=== PATIENT | female | born 1945 | race Caucasian/White ===

== ENCOUNTER → 2019-01-20 10:44 | Outpatient (CLI) | payer MEDICARE, OTHER, SELFPAY ==
[2019-01-20 12:06] LABS: Cholesterol 292 mg/dL (140-199); HDL Cholesterol 59 mg/dL (40-60); LDL Cholesterol Calculated 195 mg/dL (<100); Triglycerides 191 mg/dL (35-150)
== END ==
PROVIDERS: PCP Physician Assistant; Visit Provider Physician Assistant
DX: Z13.220 Encounter for screening for lipoid disorders (principal); Z13.6 Encounter for screening for cardiovascular disorders
CPT/HCPCS: 36415; 80061

== ENCOUNTER 2019-03-13 18:55 | Emergency (ER) | payer MEDICARE, OTHER, SELFPAY ==
[2019-03-13 18:58] VITALS: BP 145/85; PULSE 106; RESP 20; TEMP 36.9; O2SAT 98
--- NOTE | 2019-03-13 19:25 | ED_ITS ---
HPI - Abdominal Pain General Chief Complaint: Abdominal Pain Stated Complaint: Nausea Time Seen by Provider: 03/13/19 19:18 Source: patient Mode of arrival: ambulatory Limitations: no limitations History of Present Illness HPI narrative: Patient is a 73-year-old female. History of atrial fibrillation. Is on anticoagulation. She states that several days ago she had a couple episodes of diarrhea and she took some Imodium which seems to have resolved that. She is here today for multiple episodes of vomiting since last evening. Has epigastric abdominal pain. She thinks that is her gallbladder that is causing her problems. She states she has had gallbladder issues in the past but is never had surgery to remove it. Related Data Home Medications Medication Instructions Recorded Confirmed Prilosec 1 tab PO .QDAY PRN 01/05/19 01/05/19 rivaroxaban 15 mg (42)-20 mg (9) each PO PER PKG DIR each 01/05/19 01/05/19 tablets in a starter pack Previous Rx's Medication Instructions Recorded apixaban 5 mg tablet 5 mg PO BID #180 tab 01/05/19 diltiazem ER 180 mg 180 mg PO DAILY #90 tab 01/05/19 tablet,extended release 24 hr metoclopramide HCl [Reglan] 10 mg PO Q6H PRN #10 tab 03/13/19 Allergies Allergy/AdvReac Type Severity Reaction Status Date / Time doxycycline AdvReac Intermediate Blisters Verified 01/05/19 15:51 in mouth and itchy skin SULFA Allergy Mild rash Uncoded 01/05/19 15:51 strawberry patches Review of Systems Constitutional Denies fever(s) and Denies headache(s) ENT Ears, Nose, Mouth, and Throat: Denies vertigo and Denies headache(s) Cardiovascular Denies chest pain and Denies dyspnea Respiratory Denies dyspnea Gastrointestinal Gastrointestinal: Reports abdominal pain, Reports nausea and Reports vomiting Genitourinary Denies dysuria and Denies vaginal discharge Musculoskeletal Denies myalgias and Denies arthralgias Integumentary/Breasts Denies rash Neurologic Denies vertigo and Denies headache(s) Hematologic/Lymphatic Comments: On anticoagulation [facility] Medical History Atrial fibrillation (Acute) Social History Smoking Status: Never smoker second hand exposure: No alcohol intake: current (on rare occasions like for toast.) substance use type: does not use Social History Smoking Status: Never smoker second hand exposure: No alcohol intake: current (on rare occasions like for toast.) substance use type: does not use Exam Initial Vital Signs Initial Vital Signs: Vital Signs Temperature 98.5 F 03/13/19 18:58 Pulse Rate 106 H 03/13/19 18:58 Respiratory Rate 20 03/13/19 18:58 Blood Pressure 145/85 H 03/13/19 18:58 Pulse Oximetry 98 03/13/19 18:58 Const General: cooperative, healthy appearing, comfortable, well developed, well leidy omed and No acute distress Orientation: alert, awake and oriented x3 HENMT Head: normal to inspection and normocephalic Resp Effort & Inspection: normal respiratory effort Auscultation: clear to auscultation bilaterally Cardio Rate: regular rate Rhythm: abnormal rhythm irregularly irregular Pulses: radial pulses present GI Inspection: non-distended Palpation: soft, No guarding and tender (Epigastric and right upper quadrant) Back/Spine/Pelvis Back: No CVA tenderness Skin Lesions: no lesions Rashes: no rashes Neuro General: alert and awake Cognition: normal cognition Speech: speech normal Gait: normal gait Extrem General: normal to inspection and capillary refill normal Psych Appearance: grossly normal and well kempt Scores GCS Danielle coma scale eye opening: Spontaneous [place] coma scale verbal response: Orientated Danielle coma scale motor response: Obey commands Danielle coma scale total score: 15 Course Orders Ordered: ED Orders 03/13/19 19:25 US abdomen limited Stat 03/13/19 19:35 Complete Blood Count AUTO DIFF Stat Comprehensive Metabolic Panel Stat Lipase Stat 03/13/19 19:36 EKG-12 Lead Stat 03/13/19 19:45 Lactate (Lactic Acid) Stat Discontinued Medications Sodium Chloride (Normal Saline 0.9%) 1,000 mls @ 1,000 mls/hr IV BOLUS ONE Stop: 03/13/19 20:38 Last Infusion: 03/13/19 21:05 Dose: 0 mls/hr Admin: 03/13/19 19:45 Dose: 1,000 mls/hr Metoclopramide HCl (Reglan) 10 mg IV NOW ONE Stop: 03/13/19 20:06 Last Admin: 03/13/19 20:10 Dose: 10 mg Ondansetron HCl (Zofran) 4 mg IV NOW ONE Stop: 03/13/19 19:40 Last Admin: 03/13/19 19:45 Dose: 4 mg Ondansetron HCl (Zofran Odt Prepack) 1 bottle MISC SEEINSTR ONE Stop: 03/13/19 22:02 Last Admin: 03/13/19 22:10 Dose: 1 bottle Vital Signs - 8 hr 03/13/19 18:58 03/13/19 21:00 Temperature 98.5 F Pulse Rate 106 H 95 H Respiratory Rate 20 17 Blood Pressure 145/85 H Blood Pressure [Right Arm] 132/57 L Pulse Oximetry 98 99 MDM - Abdominal Pain Lab Data Attestation: I reviewed the patient's lab results. Result diagrams: 03/13/19 19:35 03/13/19 19:35 Lab Results 03/13/19 03/13/19 03/13/19 Range/Units 19:35 19:35 19:45 WBC 10.2 (4.5-11.0) X10^3/uL RBC 4.93 (4.0-5.2) X10^6/uL Hgb 14.2 (12.0-16.0) g/dL Hct 43.3 (36-46) % MCV 87.7 (80-100) fL MCH 28.8 (26-34) PG MCHC 32.8 (30-36) % RDW 15.4 H (11.6-14.8) % Plt Count 252 (150-400) X10^3/uL Neut % (Auto) 88.2 H (50-75) % Lymph % (Auto) 7.4 L (25-40) % [place] % (Auto) 3.9 (3-14) % Eos % (Auto) 0.0 L (2-4) % Baso % (Auto) 0.5 (0-2) % Neut # (Auto) 9000 H (8450-5781) /uL Lymph # (Auto) 800 L (2360-7854) /uL [place] # (Auto) 400 (0-900) /uL Eos # (Auto) 0 (0-450) /uL Baso # (Auto) 0 (0-100) /uL Sodium 139 (137-145) mmol/L Potassium 3.6 (3.4-5.1) mmol/L Chloride 104 (98-107) mmol/L Carbon Dioxide 22 (22-32) mmol/L BUN 11 (7-17) mg/dL Creatinine 0.60 (0.52-1.04) mg/dL Estimated GFR > 60.0 (>60) mL/min BUN/Creatinine Ratio 18.3 (6-22) Glucose 131 H (80-110) mg/dL Lactate 1.0 (0.7-2.1) mmol/L Calcium 9.9 (8.4-10.2) mg/dL Total Bilirubin 0.8 (0.2-1.3) mg/dL AST 28 (14-36) IU/L ALT 20 (9-52) IU/L Alkaline Phosphatase 125 (38-126) U/L Total Protein 8.2 (6.3-8.2) g/dL Albumin 4.6 (3.5-5.0) g/dL Globulin 3.6 (1.7-4.1) g/dL Albumin/Globulin Ratio 1.3 (1.0-2.8) Lipase 64 (23-300) U/L Point of care testing: Urine Dip Bedside Urine Glucose Negative Bedside Urine Bilirubin - Negative Bedside Urine Ketone ++ 40 Urine Specific [place] 1.030 Bedside Urine Occult Blood - Negative Bedside Urine pH 6.0 Bedside Urine Protein +/- 15 Bedside Urine Urobilinogen - Negative Bedside Urine Nitrite - Negative Bedside Urine Leukocytes - Negative Esterase Imaging Data US - abdomen: Radiologist's impression: [place] [address] Ultrasound Report Signed Patient: Irene Butler PMR#: [id number] : 7Acct:[id number] Age/Sex: 73 / FDate of Service: 03/13/19 Loc: ED Accession Number: [id number] Procedure: US abdomen limited Ordering Provider: David Nelson D.O. PROCEDURE: US ABDOMEN LIMITED INDICATIONS: RIGHT UPPER QUADRANT PAIN TECHNIQUE: Real-time scanning was performed of the abdominal and retroperitoneal organs, with image documentation. COMPARISON: None. FINDINGS: The liver is enlarged measuring 17.0 cm. There is no oral appearance of increased echogenicity. Within the right lobe there are several echogenic foci measuring 32 x 32 x 29 mm, 27 x 20 x 32 mm and 16 x 19 x 18 mm. Similar focus is noted in the anterior right lobe measuring 24 x 26 x 27 mm. The gallbladder is unremarkable with wall thickness measuring 1.4 mm. No stones. Common bile duct is within normal limits measuring 5.3 mm. IMPRESSION: 1. Multiple echogenic foci within the liver suspicious for hemangiomas. No priors are available for comparison. As clinically indicated, further evaluation with hepat ic CT may be obtained on a nonemergent basis. 2. Gallbladder is unremarkable. Dictated by: Carrie Jj M.D. on 03/13/2019 at 21:39 Approved by: Carrie Jj M.D. on 03/13/2019 at 21:41 ECG Data Attestation: I personally reviewed and interpreted this ECG as follows: Prior ECG tracings: not available for review Interpretation: Atrial fibrillation Ventricular rate of 96 Normal axis Normal QRS Normal QTC No ST T wave changes MDM Narrative Medical decision making narrative: Has a benign abdominal exam. Ultrasound is negative for acute gallbladder pathology. I did discuss the incidental findings of hemangiomas that were seen on the ultrasound. Informed her that she needed to follow up with her primary doctor regarding these for a dedicated CT scan. I do not feel that this needs that happened this evening. She was able to tolerate oral intake. Will send home with nausea medications. She is given return precautions and follow-up instructions. She expressed understanding and agreement with plan. Discharge Plan Departure Patient Disposition: Home Clinical Impression: Abdominal pain Qualifiers: Abdominal location: epigastric Qualified Code(s): R10.13 - Epigastric pain Nausea & vomiting Qualifiers: Vomiting type: unspecified Vomiting Intractability: non-intractable Qualified Code(s): R11.2 - Nausea with vomiting, unspecified Discharge Date/Time: 03/13/19 22:10 Interventions: ED Discharge Assessment Last Done: 03/13/19 22:10 Instructions: Nausea and Vomiting-Adult Activity Restrictions/Additional Instructions: You need to talk with your primary provider about a dedicated CT scan of your liver to further evaluate the incidental findings of possible hemangiomas on the ultrasound. Take the medication as directed. Return to the emergency department for any new or worsening symptoms Prescriptions: New metoclopramide HCl [Reglan] 10 mg tablet 10 mg PO Q6H PRN (Reason: nausea and vomiting) Qty: 10 RF: 0 No Action Prilosec 1 tab PO .QDAY PRNRF: 0 diltiazem HCl 180 mg tablet extended release 24 hr 180 mg PO DAILY Qty: 90 RF: 0 Eliquis 5 mg tablet 5 mg PO BID Qty: 180 RF: 1 Xarelto 15 mg (42)- 20 mg (9) tablets,dose pack PO PER PKG DIR RF: 0 Referrals: Melinda Escamilla PA-C [Primary Care Provider] -
[2019-03-13 19:43] LABS: Add Manual Diff / Slide Review NO; Basophils Absolute Auto 0 /uL (0-100); Basophils Percent Auto 0.5 % (0-2); Eosinophils Absolute Auto 0 /uL (0-450); Hematocrit 43.3 % (36-46); Hemoglobin 14.2 g/dL (12.0-16.0); Lymphocytes Absolute Auto 800 /uL (1100-4500); Lymphocytes Percent Auto 7.4 % (25-40); Mean Corpuscular HGB Conc 32.8 % (30-36); Mean Corpuscular Hemoglobin 28.8 PG (26-34); Mean Corpuscular Volume 87.7 fL (80-100); Monocytes Absolute Auto 400 /uL (0-900); Monocytes Percent Auto 3.9 % (3-14); Neutrophils Absolute Auto 9000 /uL (1500-7000); Neutrophils Percent Auto 88.2 % (50-75); Platelet Count 252 X10^3/uL (150-400); Red Blood Cell Count 4.93 X10^6/uL (4.0-5.2); Red Cell Distribution Width 15.4 % (11.6-14.8); White Blood Cell Count 10.2 X10^3/uL (4.5-11.0)
[2019-03-13] MEDS: ONDANSETRON 4 MG/2 ML INJ IV (19:45)
[2019-03-13] MEDS: SODIUM CHLORIDE 0.9% 1,000 ML 1000 ML IV (19:45)
[2019-03-13 19:58] LABS: Alanine Aminotransferase 20 IU/L (9-52); Albumin 4.6 g/dL (3.5-5.0); Albumin Globulin Ratio 1.3 (1.0-2.8); Alkaline Phosphatase 125 U/L (38-126); Aspartate Aminotransferase 28 IU/L (14-36); BUN Creatinine Ratio 18.3 (6-22); Bilirubin Total 0.8 mg/dL (0.2-1.3); Blood Urea Nitrogen 11 mg/dL (7-17); Calcium 9.9 mg/dL (8.4-10.2); Carbon Dioxide 22 mmol/L (22-32); Chloride 104 mmol/L (98-107); Estimated Glomerular Filt Rate > 60.0 mL/min (>60); Globulin 3.6 g/dL (1.7-4.1); Glucose 131 mg/dL (80-110); HEMOLYSIS < 15 (0-50); Lipase 64 U/L (23-300); Potassium 3.6 mmol/L (3.4-5.1); Sodium 139 mmol/L (137-145); Total Protein 8.2 g/dL (6.3-8.2)
[2019-03-13] MEDS: METOCLOPRAMIDE 10 MG/2 ML INJ IV (20:10)
[2019-03-13 21:00] VITALS: BP 132/57; PULSE 95; RESP 17; O2SAT 99
[2019-03-13] MEDS: ONDANSETRON 4 MG ODT PREPACK 1 BOTTLE MISC (22:10)
== END 2019-03-13 22:10 | disposition home or self-care (01) ==
PROVIDERS: Emergency Provider Emergency Medicine; Family Provider Internal Medicine Cardiovascular Disease; PCP Physician Assistant
DX: R10.13 Epigastric pain (principal); R11.2 Nausea with vomiting, unspecified; I48.91 Unspecified atrial fibrillation; Z79.01 Long term (current) use of anticoagulants
CPT/HCPCS: 36591; 76705; 80053; 81003; 83605; 83690; 85025; 93005; 96361; 96374; 96375; 99283; 99285; J2405; J2765

== ENCOUNTER → 2019-03-22 07:55 | Outpatient (CLI) | payer MEDICARE, OTHER, SELFPAY ==
--- NOTE | 2019-03-22 | DI.ECHO.S_ITS ---
[facility] +---------+ : : [address] [place] : : : : [id number] : : : : Phone: [phone]+ Echocardiogram Report + + :Name: MANDY CONLEY Study Date: 03/22/2019 Height: 68 in : :[facility] Exam Location: IS Weight: 201 lb : : Gender: Female BSA: 2.0 m2 : :: 1945 Age: 73 yrs BP: 100/80 mmHg: :Reason For Study: Atrial fibrillation : :Ordering Physician: Duncan Ramirez : :Gerard Performed By: Manju Page : + + Interpretation Summary 1) Normal left ventricular size, thickness, wall motion, and systolic function (EF 60-65%). 2) Mildly enlarged right ventricle with normal fnction. 3) The left atrium is severely dilated. The right atrium is moderately dilated. 4) No significant valvular abnormalities 5) No prior Echo available for comparison. Procedure: A two-dimensional transthoracic echocardiogram with color flow and Doppler was performed. The study quality was technically adequate. There is no prior echocardiogram noted for this patient. The patient was in atrial fibrillation with heart rates between 72-96 bpm during the exam. Left Ventricle: The left ventricle is normal in size. Left ventricular wall thickness is normal. The ejection fraction is estimated to be 60-65%. There are no focal wall motion abnormalities. Diastolic function could not be accurately assessed due to atrial fibrillation. Right Ventricle: The right ventricle is mildly dilated. The right ventricular systolic function is normal. Atria: The left atrium is severely dilated. The right atrium is moderately dilated. There is no Doppler evidence for an interatrial shunt. Mitral Valve: The mitral valve is normal in structure and function. There is mild mitral annular calcification. There is trace mitral regurgitation. Aortic Valve: The aortic valve is trileaflet. The aortic valve opens well. There is no aortic valve stenosis. There is trace aortic regurgitation. Tricuspid Valve: The tricuspid valve is normal in structure and function. There is mild tricuspid regurgitation. Pulmonic Valve: The pulmonic valve is not well visualized. There is a trace or physiologic amount of pulmonic regurgitation. Great Vessels: The aortic root is normal size. The ascending aorta is at the upper limits of normal in size. The aortic arch is normal in size. The pulmonary is not well visualized. The IVC is of normal diameter and collapses greater than 50% with a sniff. This suggests a low right atrial pressure of 3 mm Hg. Pericardium/ Pleura There is no pericardial effusion. There is no pleural effusion. MMode/2D Measurements & Calculations LVIDd: 4.4 cm Ao root diam: 3.6 cm LVIDs: 2.5 cm asc Aorta Diam: 3.6 cm FS: 42.2 % Ao Arch Diam (Prox Trans): 2.9 cm EPSS: 0.60 cm IVSd: 0.82 cm LVPWd: 1.0 cm LV pace. diameter/BSA (cm/m^2): 2.1 LV sys. diameter/BSA (cm/m^2): 1.2 LA A2 area: 35.3 cm2 RA long axis: 5.9 cm LA A4 area: 30.7 cm2 RA area: 22.7 cm2 LA length (vol): 6.6 cm RA vol: 73.9 ml LA vol: 139.4 ml RA : 36.1 ml/m2 LA vol index: 68.0 ml/m2 IVC diam: 1.4 cm RVD1 (basal): 4.0 cm RVD2 (mid): 4.1 cm TAPSE: 1.1 cm Doppler Measurements & Calculations Ao V2 max: 103.2 cm/sec LVOT Max Juan M: 70.4 cm/sec Ao V2 mean: 78.6 cm/sec LV V1 max P.0 mmHg Ao max P.3 mmHg LV V1 VTI: 12.6 cm Ao mean P.6 mmHg sev ratio: 0.66 Ao V2 VTI: 19.1 cm MV E max juan m: 91.2 cm/sec TR max juan m: 205.9 cm/sec MV P1/2t: 50.0 msec TR max P.0 mmHg PA V2 max: 69.5 cm/sec PA V2 mean: 46.9 cm/sec PA mean P.97 mmHg PA Accel Time: 0.08 sec MV P1/2t max juan m: 89.6 cm/sec MVA(P1/2t): 4.4 cm2 [place] Physician:04:56 PM
== END ==
PROVIDERS: Family Provider Physician Assistant; PCP Physician Assistant; Visit Provider Internal Medicine Cardiovascular Disease
DX: I07.1 Rheumatic tricuspid insufficiency (principal); I48.1 Persistent atrial fibrillation
CPT/HCPCS: 93306

== ENCOUNTER → 2019-05-09 10:08 | Outpatient (CLI) | payer MEDICARE, OTHER, SELFPAY ==
[2019-05-09 10:53] LABS: Add Manual Diff / Slide Review NO; Basophils Absolute Auto 100 /uL (0-100); Basophils Percent Auto 1.1 % (0-2); Eosinophils Absolute Auto 100 /uL (0-450); Eosinophils Percent Auto 2.7 % (2-4); Hematocrit 42.4 % (36-46); Lymphocytes Absolute Auto 1700 /uL (1100-4500); Lymphocytes Percent Auto 31.8 % (25-40); Mean Corpuscular Hemoglobin 29.5 PG (26-34); Mean Corpuscular Volume 89.2 fL (80-100); Monocytes Absolute Auto 500 /uL (0-900); Monocytes Percent Auto 9.4 % (3-14); Neutrophils Absolute Auto 2900 /uL (1500-7000); Platelet Count 212 X10^3/uL (150-400); Red Blood Cell Count 4.75 X10^6/uL (4.0-5.2); Red Cell Distribution Width 14.4 % (11.6-14.8); White Blood Cell Count 5.3 X10^3/uL (4.5-11.0)
[2019-05-09 11:04] LABS: BUN Creatinine Ratio 21.3 (6-22); Blood Urea Nitrogen 17 mg/dL (7-17); Calcium 10.5 mg/dL (8.4-10.2); Carbon Dioxide 27 mmol/L (22-32); Chloride 105 mmol/L (98-107); Cholesterol 214 mg/dL (140-199); Estimated Glomerular Filt Rate > 60.0 mL/min (>60); Glucose 93 mg/dL (80-110); HDL Cholesterol 57 mg/dL (40-60); HEMOLYSIS < 15 (0-50); LDL Cholesterol Calculated 128 mg/dL (<100); Sodium 141 mmol/L (137-145); Triglycerides 143 mg/dL (35-150)
== END ==
PROVIDERS: PCP Physician Assistant; Visit Provider Internal Medicine Cardiovascular Disease
DX: I48.1 Persistent atrial fibrillation (principal); Z79.01 Long term (current) use of anticoagulants; E78.5 Hyperlipidemia, unspecified
CPT/HCPCS: 36415; 80048; 80061; 85025

== ENCOUNTER 2019-10-25 18:44 | Emergency (ER) | payer MEDICARE, OTHER, SELFPAY ==
[2019-10-25 18:57] VITALS: BP 166/95; PULSE 96; RESP 16; TEMP 36.8; O2SAT 96; BMI 30.1
[2019-10-25 19:48] LABS: Add Manual Diff / Slide Review NO; Basophils Absolute Auto 0 /uL (0-100); Basophils Percent Auto 0.3 % (0-2); Eosinophils Absolute Auto 0 /uL (0-450); Eosinophils Percent Auto 0.1 % (2-4); Hematocrit 43.5 % (36-46); Hemoglobin 14.6 g/dL (12.0-16.0); Lymphocytes Absolute Auto 1000 /uL (1100-4500); Lymphocytes Percent Auto 13.9 % (25-40); Mean Corpuscular HGB Conc 33.6 % (30-36); Mean Corpuscular Volume 86.4 fL (80-100); Monocytes Absolute Auto 600 /uL (0-900); Monocytes Percent Auto 8.3 % (3-14); Neutrophils Absolute Auto 5800 /uL (1500-7000); Neutrophils Percent Auto 77.4 % (50-75); Platelet Count 229 X10^3/uL (150-400); Red Blood Cell Count 5.03 X10^6/uL (4.0-5.2); Red Cell Distribution Width 14.7 % (11.6-14.8); White Blood Cell Count 7.5 X10^3/uL (4.5-11.0)
[2019-10-25 19:56] LABS: INR 1.1 (0.9-1.3); Prothrombin Time 12.5 SECONDS (10.1-12.7)
[2019-10-25 19:59] LABS: PTT Partial Thromboplastin Tim 32 SECONDS (26.4-36.2)
[2019-10-25 20:00] LABS: Alanine Aminotransferase 21 IU/L (<35); Albumin 4.5 g/dL (3.5-5.0); Albumin Globulin Ratio 1.3 (1.0-2.8); Alkaline Phosphatase 119 U/L (38-126); Aspartate Aminotransferase 31 IU/L (14-36); BUN Creatinine Ratio 15.7 (6-22); Bilirubin Total 0.6 mg/dL (0.2-1.3); Blood Urea Nitrogen 11 mg/dL (7-17); Calcium 9.9 mg/dL (8.4-10.2); Carbon Dioxide 25 mmol/L (22-32); Chloride 106 mmol/L (98-107); Estimated Glomerular Filt Rate > 60.0 mL/min (>60); Globulin 3.4 g/dL (1.7-4.1); Glucose 122 mg/dL (80-110); HEMOLYSIS 31 (0-50); Lipase 69 U/L (23-300); Sodium 139 mmol/L (137-145); Total Protein 7.9 g/dL (6.3-8.2)
[2019-10-25 20:30] VITALS: BP 155/70; PULSE 108; RESP 22; O2SAT 96
[2019-10-25 20:30] LABS: RBC Urine None Seen (0-5/HPF)
[2019-10-25 20:41] LABS: Amorphous Sediment Urine 1+; Bacteria Urine Few (2-10); Culture Indicated Urine Specimen Cultured; Mucus Urine 2+ (Negative); Squamous Epithelial Cell Urine 1-5 /HPF (0-5/HPF); WBC Urine 5-10/HPF (0-5/HPF)
--- NOTE | 2019-10-25 20:50 | ED.ABDPAIN ---
HPI - Abdominal Pain General Chief Complaint: Abdominal Pain Stated Complaint: vomiting, abdominal pain Time Seen by Provider: 10/25/19 19:07 Source: patient Mode of arrival: Ambulatory Limitations: no limitations History of Present Illness HPI narrative: 74-year-old female nonsmoker with history of AFib on apixaban presents with her daughter and a chief complaint of epigastric and right upper quadrant abdominal pain for the past 24-48 hours. Her pain is worse with motion and improves with rest. She denies any vomiting but has had some nausea. She denies any change in bowel movements. She denies runny nose, sore throat or cough. She denies any unexplained weight loss. MD complaint: abdominal pain Onset (ago): day(s) Pain Consistency: constant Location: RUQ and epigastric Severity: moderate Quality: cramping and aching Relieving factors: rest Exacerbating factors: movement Associated symptoms: nausea Related Data Home Medications Medication Instructions Recorded Confirmed Prilosec 1 tab PO .QDAY PRN 01/05/19 10/09/19 rosuvastatin 5 mg tablet See Rx Instructions PO DAILY 04/12/19 10/09/19 Previous Rx's Medication Instructions Recorded apixaban 5 mg tablet 5 mg PO BID #180 tab 01/05/19 diltiazem HCl 180 mg 180 mg PO DAILY #90 tab 01/05/19 tablet,extended release 24 hr metoclopramide HCl [Reglan] 10 mg PO Q6H PRN #10 tab 03/13/19 lorazepam 1 mg tablet 1 mg PO DAILY PRN #15 tab 10/09/19 azelastine 137 mcg (0.1 %) nasal 2 spray NASAL BEDTIME #30 ml 10/13/19 spray aerosol hydrocodone-acetaminophen 1 tab PO Q4-6H PRN #10 tab 10/25/19 ondansetron 4 mg PO TID-QID PRN #10 tab 10/25/19 ondansetron 4 mg PO TID-QID PRN #10 tab 10/25/19 Allergies Allergy/AdvReac Type Severity Reaction Status Date / Time doxycycline AdvReac Intermediate Blisters Verified 10/09/19 14:02 in mouth and itchy skin rosuvastatin AdvReac Intermediate N/V; Verified 10/09/19 14:02 diffuse muscle and joint pain SULFA Allergy Mild rash Uncoded 10/09/19 14:02 strawberry patches Review of Systems Constitutional Constitutional: Denies chills, Denies fatigue, Denies fever(s), Denies frequent falls, Denies lethargy and Denies weakness Eyes Eyes: Denies change in vision, Denies eye discharge, Denies irritation and Denies loss of vision ENT Ears, Nose, Mouth, and Throat: Denies change in voice, Denies dizziness, Denies neck pain, Denies sore throat and Denies throat swelling Cardiovascular Cardiovascular: Denies chest pain, Denies irregular heart rhythm, Denies lightheadedness, Denies palpitations, Denies dyspnea, Denies dyspnea on exertion and Denies orthopnea Respiratory Respiratory: Denies cough, Denies dyspnea, Denies dyspnea on exertion and Denies wheezing Gastrointestinal Gastrointestinal: Reports abdominal pain, Denies change in bowel habits, Denies diarrhea, Reports nausea and Denies vomiting Genitourinary Genitourinary: Denies hematuria, Denies flank pain, Denies urinary incontinence and Denies urinary urgency Musculoskeletal Musculoskeletal: Denies back pain, Denies muscle weakness, Denies neck pain, Denies numbness and Denies tingling Integumentary/Breasts Skin/Breast: Denies pruritus, Denies erythema, Denies rash and Denies wounds Neurologic Neurologic: Denies behavioral changes, Denies confusion, Denies dizziness, Denies frequent falls, Denies loss of vision, Denies numbness, Denies tingling and Denies weakness Psychiatric Psychiatric: Denies anxiety, Denies behavioral changes, Denies confusion, Denies depression, Denies homicidal ideation and Denies suicidal ideation Endocrine Endocrine: Denies fatigue, Denies flushing and Denies palpitations Hematologic/Lymphatic Hematologic/Lymphatic: Denies easy bruising Allergic/Immunologic Allergic/Immunologic: Denies urticaria, Denies throat swelling and Denies wheezing Patient History Medical History Atrial fibrillation (Chronic) Chicken pox (Resolved) Hepatitis A (Resolved ~1973) Measles (Resolved) Mumps (Resolved) Rubella (Resolved) Surgical History Anesthesia (Resolved) History of removal of cyst (Resolved ~1969) History of tubal ligation (Resolved ~1972) Family History Father Congestive heart failure Social History Smoking Status: Never smoker second hand exposure: No alcohol intake: current (on rare occasions like for toast.) substance use type: does not use Smoking Status: Never smoker alcohol intake frequency: 0-2 drinks per day Substance Use Type: does not use Exam Narrative Exam Narrative: GENERAL: [74] year old patient appears stated age. Well-nourished, well-developed patient, in mild distress, obviously uncomfortable HEAD: Atraumatic. Normocephalic. EYES: Pupils equal round and reactive. Extraocular motions intact. No scleral icterus. No injection or drainage. ENT: Nose without bleeding, purulent drainage. Throat without erythema, tonsillar hypertrophy or exudate. Airway patent. NECK: Trachea midline. Non tender CARDIOVASCULAR: Regular rate and rhythm without murmurs, gallops, or rubs. RESPIRATORY: Clear to auscultation. Breath sounds equal bilaterally. No wheezes, rales, or rhonchi. GASTROINTESTINAL: Abdomen soft, tender in the right upper quadrant, nondistended. No pain in left lower quadrant EXTREMITIES: No edema or joint tenderness. BACK: Nontender without deformity or crepitance. No flank tenderness. NEURO: AOx3. SKIN: No rash or erythema of visible areas Initial Vital Signs Initial Vital Signs: Vital Signs Temperature 98.2 F 10/25/19 18:57 Pulse Rate 96 H 10/25/19 18:57 Respiratory Rate 16 10/25/19 18:57 Blood Pressure 166/95 H 10/25/19 18:57 Pulse Oximetry 96 10/25/19 18:57 Course Orders Ordered: ED Orders 10/25/19 18:57 EKG-12 Lead Stat 10/25/19 19:30 Complete Blood Count AUTO DIFF Stat Comprehensive Metabolic Panel Stat Lipase Stat Partial Thromboplastin Time Stat Prothrombin Time INR Stat 10/25/19 20:15 Urine Culture Stat Urine Microscopic Stat 10/25/19 20:55 CT abdomen pelvis w con Stat Discontinued Medications Hydrocodone Bitart/Acetaminophen (Vicodin 5/325 Prepack) 1 bottle MISC SEEINSTR ONE Stop: 10/25/19 22:18 Last Admin: 10/25/19 22:32 Dose: 1 bottle Documented by: CLEMENTINE Hydromorphone HCl (Dilaudid) 0.5 mg IV NOW ONE Stop: 10/25/19 20:55 Last Admin: 10/25/19 21:03 Dose: 0.5 mg Documented by: STANTON Sodium Chloride (Normal Saline 0.9%) 1,000 mls @ 1,000 mls/hr IV BOLUS ONE Stop: 10/25/19 21:53 Last Infusion: 10/25/19 22:31 Dose: 0 mls/hr Documented by: Admin: 10/25/19 21:03 Dose: 1,000 mls/hr Documented by: STANTON Ondansetron HCl (Zofran) 4 mg IV NOW ONE Stop: 10/25/19 20:55 Last Admin: 10/25/19 21:03 Dose: 4 mg Documented by: STANTON Ondansetron HCl (Zofran Odt Prepack) 1 bottle MISC SEEINSTR ONE Stop: 10/25/19 22:18 Last Admin: 10/25/19 22:32 Dose: 1 bottle Documented by: CLEMENTINE Vital Signs Vital signs: Vital Signs - 8 hr 10/25/19 20:30 10/25/19 21:30 10/25/19 22:00 Pulse Rate 108 H 94 H 98 H Respiratory Rate 22 24 20 Blood Pressure [Left Arm] 155/70 H 135/74 133/63 Pulse Oximetry 96 94 96 MDM - Abdominal Pain Lab Data Result diagrams: 10/25/19 19:30 10/25/19 19:30 Labs: Lab Results 10/25/19 10/25/19 10/25/19 Range/Units 19:30 19:30 19:30 WBC 7.5 (4.5-11.0) X10^3/uL RBC 5.03 (4.0-5.2) X10^6/uL Hgb 14.6 (12.0-16.0) g/dL Hct 43.5 (36-46) % MCV 86.4 (80-100) fL MCH 29.0 (26-34) PG MCHC 33.6 (30-36) % RDW 14.7 (11.6-14.8) % Plt Count 229 (150-400) X10^3/uL Neut % (Auto) 77.4 H (50-75) % Lymph % (Auto) 13.9 L (25-40) % [place] % (Auto) 8.3 (3-14) % Eos % (Auto) 0.1 L (2-4) % Baso % (Auto) 0.3 (0-2) % Neut # (Auto) 5800 (3476-3671) /uL Lymph # (Auto) 1000 L (2404-4418) /uL [place] # (Auto) 600 (0-900) /uL Eos # (Auto) 0 (0-450) /uL Baso # (Auto) 0 (0-100) /uL PT 12.5 (10.1-12.7) SECONDS INR 1.1 (0.9-1.3) APTT 32 (26.4-36.2) SECONDS Sodium 139 (137-145) mmol/L Potassium 4.0 (3.4-5.1) mmol/L Chloride 106 (98-107) mmol/L Carbon Dioxide 25 (22-32) mmol/L BUN 11 (7-17) mg/dL Creatinine 0.70 (0.52-1.04) mg/dL Estimated GFR > 60.0 (>60) mL/min BUN/Creatinine Ratio 15.7 (6-22) Glucose 122 H (80-110) mg/dL Calcium 9.9 (8.4-10.2) mg/dL Total Bilirubin 0.6 (0.2-1.3) mg/dL AST 31 (14-36) IU/L ALT 21 (<35) IU/L Alkaline Phosphatase 119 (38-126) U/L Total Protein 7.9 (6.3-8.2) g/dL Albumin 4.5 (3.5-5.0) g/dL Globulin 3.4 (1.7-4.1) g/dL Albumin/Globulin Ratio 1.3 (1.0-2.8) Lipase 69 (23-300) U/L Urine RBC (0-5/HPF) Urine WBC (0-5/HPF) Ur Squamous Epith Cells (0-5/HPF) Amorphous Sediment Urine Bacteria (None) Urine Mucus (Negative) Ur Culture Indicated? 10/25/19 Range/Units 20:15 WBC (4.5-11.0) X10^3/uL RBC (4.0-5.2) X10^6/uL Hgb (12.0-16.0) g/dL Hct (36-46) % MCV (80-100) fL MCH (26-34) PG MCHC (30-36) % RDW (11.6-14.8) % Plt Count (150-400) X10^3/uL Neut % (Auto) (50-75) % Lymph % (Auto) (25-40) % [place] % (Auto) (3-14) % Eos % (Auto) (2-4) % Baso % (Auto) (0-2) % Neut # (Auto) (2423-2692) /uL Lymph # (Auto) (3094-3805) /uL [place] # (Auto) (0-900) /uL Eos # (Auto) (0-450) /uL Baso # (Auto) (0-100) /uL PT (10.1-12.7) SECONDS INR (0.9-1.3) APTT (26.4-36.2) SECONDS Sodium (137-145) mmol/L Potassium (3.4-5.1) mmol/L Chloride (98-107) mmol/L Carbon Dioxide (22-32) mmol/L BUN (7-17) mg/dL Creatinine (0.52-1.04) mg/dL Estimated GFR (>60) mL/min BUN/Creatinine Ratio (6-22) Glucose (80-110) mg/dL Calcium (8.4-10.2) mg/dL Total Bilirubin (0.2-1.3) mg/dL AST (14-36) IU/L ALT (<35) IU/L Alkaline Phosphatase (38-126) U/L Total Protein (6.3-8.2) g/dL Albumin (3.5-5.0) g/dL Globulin (1.7-4.1) g/dL Albumin/Globulin Ratio (1.0-2.8) Lipase (23-300) U/L Urine RBC None seen (0-5/HPF) Urine WBC 5-10/hpf H (0-5/HPF) Ur Squamous Epith Cells 1-5 /hpf (0-5/HPF) Amorphous Sediment 1+ Urine Bacteria Few (2-10) H (None) Urine Mucus 2+ H (Negative) Ur Culture Indicated? Specimen cultured Point of care testing: Urine Dip Bedside Urine Glucose Negative Bedside Urine Bilirubin ++ 2 Bedside Urine Ketone + 15 Urine Specific [place] 1.030 Bedside Urine Occult Blood +/- Bedside Urine pH 6.0 Bedside Urine Protein +/- 15 Bedside Urine Urobilinogen - Negative Bedside Urine Nitrite - Negative Bedside Urine Leukocytes +/- [address] scan - abdomen/pelvis: Radiologist's Impression: [address] [address] [address] Scan Report Signed Patient: Irene Butler PMR#: [id number] : 7Acct:[id number] Age/Sex: 74 / FDate of Service: 10/25/19 Loc: ED Accession Number: [id number] Procedure: CT abdomen pelvis w con Ordering Provider: Tramaine Anderson D.O. PROCEDURE: CT ABDOMEN PELVIS W CON INDICATIONS: severe abdominal pain, vomiting TECHNIQUE: After the administration of intravenous contrast, 5 mm thick sections acquired from the diaphragm to the symphysis. 5 mm coronal and sagittal reformats were acquired. For radiation dose reduction, the following was used: automated exposure control, adjustment of mA and/or kV according to patient size. COMPARISON: None. FINDINGS: Image quality: Excellent. ABDOMEN: Lung bases: Lung bases are clear. Heart size is normal. Solid organs: Liver is normal in size and enhancement. . There is a 66 mm diameter mass within the right hepatic dome. There is a 53 mm mass within the right hepatic lobe inferiorly. Multiple scattered smaller hepatic masses are present. Gallbladder is within normal limits. Biliary system is non dilated. Pancreas enhances normally. Spleen is normal in size and enhancement. There is a 20 mm diameter indeterminate right adrenal nodule. No left adrenal nodules. Kidneys demonstrate normal size and enhancement, without hydronephrosis. Peritoneum and bowel: Moderate hiatal hernia. Bowel loops stomach and small bowel are within normal limits. There is focal moderate thickening of the proximal sigmoid colon. Appendix is not seen. No evidence of appendicitis. No free fluid or air. Nodes and vessels: No retroperitoneal or mesenteric adenopathy by size criteria. Aorta and inferior vena cava are normal in size. Miscellaneous: No ventral hernias. PELVIS: Genitourinary: Bladder wall thickness is normal. Miscellaneous: No inguinal hernias or adenopathy. Bones: No suspicious bony lesions. No vertebral body compression fractures. IMPRESSION: 1. Multiple bony metastases versus multifocal hepatocellular carcinoma. 2. Thickening of the sigmoid colon; further assessment with endoscopy is recommended. 3. Appendix not seen. No evidence of appendicitis. 4. Moderate hiatal hernia. Dictated by: Camille Ayala M.D. on 10/25/2019 at 21:31 Approved by: Camille Ayala M.D. on 10/25/2019 at 21:34 [facility] Narrative Medical decision making narrative: 74-year-old female with epigastric and right upper quadrant pain and CT scan suggesting the possibility of metastatic disease. She has stable vital signs, unremarkable labs and is tolerating orals. She and daughter understand the potential diagnosis, and need for close follow-up. They have had questions answered to their apparent satisfaction and understand return precautions Discharge Plan Departure Patient Disposition: Home Clinical Impression: Hepatic lesion Abdominal pain Qualifiers: Abdominal location: generalized Qualified Code(s): R10.84 - Generalized abdominal pain Discharge Date/Time: 10/25/19 22:40 Instructions: DI for Abdominal Pain-Adult Activity Restrictions/Additional Instructions: *You have been diagnosed with [abdominal pain, likely from lesions in your liver. Additionally have some swelling and the last part of your colon. You need a primary doctor to help with coordinating the evaluation of these findings. You will need some outpatient testing including an MRI of your liver and probably a colonoscopy to further evaluate. ] *What to do: *Take medications as directed *Follow up with your primary care provider in 2-3 days, call for an appointment. Let them know you were seen in the Emergency Department and that we ask that you be seen in follow up *Return to ER if you should have any new, worsening or concerning symptoms If you have troubles getting ahold of a primary care provider when using the [facility] Resource phone number provider please email me at my work email address [email or web address] and I'll see what I can do to help. Prescriptions: New hydrocodone-acetaminophen 5-325 mg tablet 1 tab PO Q4-6H PRN (Reason: pain) Qty: 10 RF: 0 ondansetron 4 mg tablet,disintegrating 4 mg PO TID-QID PRN (Reason: nausea and vomiting) Qty: 10 RF: 0 ondansetron 4 mg tablet,disintegrating 4 mg PO TID-QID PRN (Reason: nausea and vomiting) Qty: 10 RF: 0 No Action azelastine 137 mcg (0.1 %) aerosol,spray 2 spray NASAL BEDTIME Qty: 30 RF: 3 lorazepam 1 mg tablet 1 mg PO DAILY PRN (Reason: anxiety) Qty: 15 RF: 0 Prilosec 1 tab PO .QDAY PRNRF: 0 diltiazem HCl 180 mg tablet extended release 24 hr 180 mg PO DAILY Qty: 90 RF: 0 Eliquis 5 mg tablet 5 mg PO BID Qty: 180 RF: 1 rosuvastatin [Crestor] 5 mg tablet See Rx Instructions PO DAILY RF: 0 metoclopramide HCl [Reglan] 10 mg tablet 10 mg PO Q6H PRN (Reason: nausea and vomiting) Qty: 10 RF: 0 Referrals: [facility] [Outside] Ricco Birmingham MD [Physician] - Melinda Escamilla PA-C [Primary Care Provider] - Adela Barrios MD [Physician] -
--- NOTE | 2019-10-25 20:55 | DI.CT.S_ITS ---
PROCEDURE: CT ABDOMEN PELVIS W CON INDICATIONS: severe abdominal pain, vomiting TECHNIQUE: After the administration of intravenous contrast, 5 mm thick sections acquired from the diaphragm to the symphysis. 5 mm coronal and sagittal reformats were acquired. For radiation dose reduction, the following was used: automated exposure control, adjustment of mA and/or kV according to patient size. COMPARISON: None. FINDINGS: Image quality: Excellent. ABDOMEN: Lung bases: Lung bases are clear. Heart size is normal. Solid organs: Liver is normal in size and enhancement. . There is a 66 mm diameter mass within the right hepatic dome. There is a 53 mm mass within the right hepatic lobe inferiorly. Multiple scattered smaller hepatic masses are present. Gallbladder is within normal limits. Biliary system is non dilated. Pancreas enhances normally. Spleen is normal in size and enhancement. There is a 20 mm diameter indeterminate right adrenal nodule. No left adrenal nodules. Kidneys demonstrate normal size and enhancement, without hydronephrosis. Peritoneum and bowel: Moderate hiatal hernia. Bowel loops stomach and small bowel are within normal limits. There is focal moderate thickening of the proximal sigmoid colon. Appendix is not seen. No evidence of appendicitis. No free fluid or air. Nodes and vessels: No retroperitoneal or mesenteric adenopathy by size criteria. Aorta and inferior vena cava are normal in size. Miscellaneous: No ventral hernias. PELVIS: Genitourinary: Bladder wall thickness is normal. Miscellaneous: No inguinal hernias or adenopathy. Bones: No suspicious bony lesions. No vertebral body compression fractures. IMPRESSION: 1. Multiple bony metastases versus multifocal hepatocellular carcinoma. 2. Thickening of the sigmoid colon; further assessment with endoscopy is recommended. 3. Appendix not seen. No evidence of appendicitis. 4. Moderate hiatal hernia. Dictated by: Camille Ayala M.D. on 10/25/2019 at 21:31 Approved by: Camille Ayala M.D. on 10/25/2019 at 21:34
[2019-10-25] MEDS: HYDROMORPHONE 0.5 MG INJ IV (21:03)
[2019-10-25] MEDS: SODIUM CHLORIDE 0.9% 1,000 ML 1000 ML IV (21:03)
[2019-10-25] MEDS: ONDANSETRON 4 MG/2 ML INJ IV (21:03)
[2019-10-25 21:30] VITALS: BP 135/74; PULSE 94; RESP 24; O2SAT 94
[2019-10-25 22:00] VITALS: BP 133/63; PULSE 98; RESP 20; O2SAT 96
[2019-10-25] MEDS: ONDANSETRON 4 MG ODT PREPACK 1 BOTTLE MISC (22:32)
[2019-10-25] MEDS: HYDROCODONE/ACET 5/325 PREPACK 1 BOTTLE MISC (22:32)
--- NOTE | 2019-10-31 10:18 | ONC.MSW ---
Description: Initial Referral Navigation T/C Activity: Called pt to introduce myself as the navigator, discuss the ongoing availability of assistance and support, and assessed immediate needs. Pt was very tearful, she states that she has been crying and worrying for the last 2-days, and is worried about how to talk to her adult children about this probable cancer diagnosis. This MANAGER REPORTING provided supportive counseling and reassurance, as well as teaching about what to expect with next steps here in Oncology. She expressed feeling much relieved. Will plan to meet with her f/f when she comes in for her initial consult appt. on 11/07.
== END 2019-10-25 22:40 | disposition home or self-care (01) ==
PROVIDERS: Emergency Provider Emergency Medicine; PCP Physician Assistant
DX: K76.9 Liver disease, unspecified (principal)
CPT/HCPCS: 36415; 74177; 80053; 81003; 81015; 83690; 85025; 85610; 85730; 87086; 93005; 96361; 96374; 96375; 99284; 99285; J1170; J2405; Q9967

== ENCOUNTER → 2019-11-02 07:14 | Outpatient (CLI) | payer MEDICARE, OTHER, SELFPAY | PROVIDERS: PCP Family Medicine; Referring Provider Family Medicine; Visit Provider Family Medicine | DX: K76.9 Liver disease, unspecified (principal); R10.9 Unspecified abdominal pain ==

== ENCOUNTER → 2019-11-16 14:23 | Outpatient (CLI) | payer MEDICARE, OTHER, SELFPAY ==
[2019-11-16 15:25] LABS: Platelet Count 215 X10^3/uL (150-400)
--- NOTE | 2019-11-23 | PATH_ITS ---
[facility] Accession Number: [id number] . 01 Material submitted: . liver - LIVER INFERIOR RIGHT LOBE MASS . 01 Clinical history: . NEEDLE CORE BIOPSY . 02 Diagnosis: Liver, Inferior Right Lobe Mass, Needle Core Biopsy: Well-differentiated neuroendocrine tumor. Please see comment. Mitotic activity less than 1% of tumor cells. Ki-67 positive in less than 20% of tumor cells (approximately 5%). V 11/27/2019 1406 Local . 02 Comment: Histomorphologic and immunohistochemical studies cannot exclude a metastasis (for example, from lung, pancreatic or gastrointestinal tract origin). . quality assurance supervisor was performed by Dr. Lauren. . Results discussed with Dr. Roldan's nurse, Ellie, on 11/27/2019 at approximately 12:50 p.m. . 02 Electronically signed: . Wanda Chun MD, Pathologist NPI- [id number] . 01 Gross description: . LIVER INFERIOR RIGHT LOBE MASS: Received in formalin is 1 fragment(s) of greco, soft tissue measuring 1.2 x 0.1 x 0.1 cm submitted entirely in 1 cassette(s) /QBJ 11/24/2019 0128 Local . 02 Microscopic: . Immunohistochemical stains were performed with the following results. The controls showed appropriate reactivity. . RESULTS: Chromagranin: Strongly positive. Synaptophysin: Strongly positive. Ki-67: Less than 20% of tumor nuclei (approximately 5%). EDGARDO: Strongly positive. . * This test was developed and its performance characteristics determined by [facility]. It has not been cleared or approved by the U.S. Food and Drug Administration. The FDA has determined that such clearance or approval is not necessary. This test is used for clinical purposes. It should not be regarded as investigational or for research. . 02 Pathologist provided ICD-10: D37.6 . 02 CPT . 689761, O27463, A62711 Performed at: 01 [facility] [address] [id number] MD Keyur Downey MD Phone: [phone] Performed at: [id number] [place], [place] [id number] MD Dede Lauren MD Phone: [phone]
== END ==
PROVIDERS: PCP Family Medicine; Referring Provider Surgery; Visit Provider Surgery
DX: R16.0 Hepatomegaly, not elsewhere classified (principal)
CPT/HCPCS: 36415; 85049

== ENCOUNTER 2019-11-23 11:31 | Outpatient (CLI) | payer MEDICARE, OTHER, SELFPAY ==
[2019-11-23] VITALS (12 sets, daily range): BP systolic 118–141; BP diastolic 64–86; PULSE 78–96; RESP 11–21; TEMP 35.9–37.3; O2SAT 2–98; BMI 29.7
[2019-11-23 11:56] LABS: Hematocrit 42.2 % (36-46)
[2019-11-23 12:09] LABS: Prothrombin Time 11.4 SECONDS (10.1-12.7)
[2019-11-23 12:11] LABS: PTT Partial Thromboplastin Tim 29 SECONDS (26.4-36.2)
[2019-11-23] MEDS: MIDAZOLAM 2 MG/2 ML VIAL IV (12:59)
[2019-11-23] MEDS: fentaNYL 100 MCG/2 ML INJ IV (13:04)
--- NOTE | 2019-11-23 13:39 | DI.CT.S_ITS ---
PROCEDURE: CT BIOPSY LIVER Sedation analgesia for 30 minutes. INDICATIONS: hepatic mass TECHNIQUE: The indications, alternatives, benefits, risks, and possible complications of the procedure were communicated to the patient. Informed written consent from the patient was obtained and placed in the chart. Continuous EKG and hemodynamic monitoring was started by trained personnel. The patient was brought to the CT suite and emergency physician spiral CT imaging was performed with localization grid. The appropriate site for percutaneous access to the biopsy target was marked, was prepped and draped sterilely, and was infused with local anaesthesia. Under CT guidance, a core biopsy trocar and needle set was advanced to the biopsy target, and specimen(s) were obtained. The trocar and needle were then removed, and the patient was sent for post-procedure monitoring. COMPARISON: [facility], CT, CT ABDOMEN PELVIS W CON, 10/25/2019, 21:09. FINDINGS: Biopsy site: Inferior liver mass Needle: 20 gauge biopsy needle with introducer trocar. Number of passes: 3 Medications: 1% lidocaine for local anaesthesia. IV Fentanyl and Versed for conscious sedation for 30 minutes (see nursing record). Complications: None. IMPRESSION: Successful CT-guided biopsy of an inferior liver mass. Dictated by: Jason Torres M.D. on 11/23/2019 at 13:42 Approved by: Jason Torres M.D. on 11/23/2019 at 13:44
[2019-11-23 16:09] LABS: Add Manual Diff / Slide Review NO; Basophils Absolute Auto 0 /uL (0-100); Basophils Percent Auto 0.7 % (0-2); Eosinophils Absolute Auto 100 /uL (0-450); Eosinophils Percent Auto 1.3 % (2-4); Hematocrit 40.8 % (36-46); Hemoglobin 13.4 g/dL (12.0-16.0); Lymphocytes Absolute Auto 1700 /uL (1100-4500); Lymphocytes Percent Auto 25.9 % (25-40); Mean Corpuscular HGB Conc 32.9 % (30-36); Mean Corpuscular Volume 88.1 fL (80-100); Monocytes Absolute Auto 600 /uL (0-900); Monocytes Percent Auto 9.3 % (3-14); Neutrophils Absolute Auto 4000 /uL (1500-7000); Neutrophils Percent Auto 62.8 % (50-75); Platelet Count 186 X10^3/uL (150-400); Red Blood Cell Count 4.64 X10^6/uL (4.0-5.2); Red Cell Distribution Width 14.8 % (11.6-14.8); White Blood Cell Count 6.4 X10^3/uL (4.5-11.0)
== END 2019-11-23 16:36 | disposition home or self-care (01) ==
PROVIDERS: PCP Family Medicine; Referring Provider Surgery; Visit Provider Surgery
PROC: BF25ZZZ Computerized Tomography (CT Scan) of Liver (ICD-10-PCS; CPT 47000; principal; 2019-11-23 13:00)
DX: D37.6 Neoplasm of uncertain behavior of liver, gallbladder and bile ducts (principal)
CPT/HCPCS: 36415; 47000; 77012; 85014; 85025; 85610; 85730; J2250; J3010

== ENCOUNTER → 2019-12-04 15:26 | Outpatient (CLI) | payer MEDICARE, OTHER, SELFPAY ==
[2019-12-04 15:55] LABS: Add Manual Diff / Slide Review NO; Basophils Absolute Auto 0 /uL (0-100); Basophils Percent Auto 0.7 % (0-2); Eosinophils Absolute Auto 100 /uL (0-450); Eosinophils Percent Auto 1.9 % (2-4); Hematocrit 42.6 % (36-46); Hemoglobin 14.1 g/dL (12.0-16.0); Lymphocytes Absolute Auto 1200 /uL (1100-4500); Lymphocytes Percent Auto 19.2 % (25-40); Mean Corpuscular HGB Conc 33.1 % (30-36); Mean Corpuscular Hemoglobin 29.2 PG (26-34); Mean Corpuscular Volume 88.2 fL (80-100); Monocytes Absolute Auto 500 /uL (0-900); Monocytes Percent Auto 8.5 % (3-14); Neutrophils Absolute Auto 4400 /uL (1500-7000); Neutrophils Percent Auto 69.7 % (50-75); Platelet Count 234 X10^3/uL (150-400); Red Blood Cell Count 4.83 X10^6/uL (4.0-5.2); Red Cell Distribution Width 14.6 % (11.6-14.8); White Blood Cell Count 6.4 X10^3/uL (4.5-11.0)
[2019-12-04 16:05] LABS: Alanine Aminotransferase 16 IU/L (<35); Albumin 4.4 g/dL (3.5-5.0); Albumin Globulin Ratio 1.3 (1.0-2.8); Alkaline Phosphatase 115 U/L (38-126); Aspartate Aminotransferase 25 IU/L (14-36); BUN Creatinine Ratio 14.5 (6-22); Bilirubin Total 0.6 mg/dL (0.2-1.3); Blood Urea Nitrogen 11 mg/dL (7-17); Calcium 10.1 mg/dL (8.4-10.2); Carbon Dioxide 23 mmol/L (22-32); Chloride 107 mmol/L (98-107); Estimated Glomerular Filt Rate > 60.0 mL/min (>60); Globulin 3.4 g/dL (1.7-4.1); Glucose 104 mg/dL (80-110); HEMOLYSIS < 15 (0-50); Lactate Dehydrogenase 345 U/L (313-618); Sodium 140 mmol/L (137-145); Total Protein 7.8 g/dL (6.3-8.2)
[2019-12-04 16:35] LABS: Carcinoembryonic Antigen 2.4 ng/mL (0.1-3.0)
[2019-12-05 08:39] LABS: Alpha Fetoprotein 3.1 ng/mL (0.0-8.3); Cancer (Carbohydrate) Ag 19-9 5 U/mL (0-35)
== END ==
PROVIDERS: PCP Family Medicine; Referring Provider Internal Medicine Hematology & Oncology; Visit Provider Internal Medicine Hematology & Oncology
DX: C7A.8 Other malignant neuroendocrine tumors (principal); C7B.8 Other secondary neuroendocrine tumors
CPT/HCPCS: 36415; 80053; 82105; 82378; 83615; 85025; 86301

== ENCOUNTER → 2019-12-05 14:41 | Outpatient (CLI) | payer MEDICARE, OTHER, SELFPAY ==
--- NOTE | 2019-12-05 14:43 | DI.CT.S_ITS ---
PROCEDURE: CT CHEST W CON INDICATIONS: neuroendocrine cancer TECHNIQUE: After the administration of intravenous contrast, 5 mm thick sections acquired from the pulmonary apices to the posterior costophrenic angles. 1 mm axial lung, 5 mm thick coronal and sagittal reformats and 7 mm axial MIP were acquired. For radiation dose reduction, the following was used: automated exposure control, adjustment of mA and/or kV according to patient size. COMPARISON: [facility], CT, CT ABDOMEN PELVIS W CON, 10/25/2019, 21:09. FINDINGS: Image quality: Excellent. Lungs and pleura: No acute air space opacities. 5 mm nodule noted in the lateral periphery of the right lower lobe (series 3, image 152). 5 mm nodule lateral periphery of the left lower lobe (series 3, image 220). No pleural effusions or pneumothorax. Central and peripheral airways are patent and normal in caliber. Mediastinum: Heart size is normal. No pericardial effusion. No mediastinal or hilar adenopathy by size criteria. Thoracic aorta and central pulmonary arteries are normal in size. Esophagus is normal in caliber. Small hiatal hernia noted. Bones and chest wall: No suspicious bony lesions. No vertebral body compression fractures. No axillary or supraclavicular adenopathy by size criteria. Thyroid gland is normal where visualized. Abdomen: Hepatic masses are stable in size and contour where visualized compared to 10/25/2019. Visualized upper abdominal solid organs otherwise appear normal. Upper abdominal bowel loops are normal in caliber. IMPRESSION: 1. 5 mm right lower lobe and 5 mm left lower lobe pulmonary nodules. Nodules could represent sequela of remote granulomatous disease versus early metastatic disease. Recommend followup CT scan of the chest in 3 months. 2. No lung parenchymal masses/nodules. 3. No lymphadenopathy based on size criteria. Dictated by: Janice Acuna MD, PhD on 12/05/2019 at 15:41 Approved by: Janice Acuna MD, PhD on 12/05/2019 at 15:49
== END ==
PROVIDERS: PCP Family Medicine; Referring Provider Internal Medicine Hematology & Oncology; Visit Provider Internal Medicine Hematology & Oncology
DX: C7B.8 Other secondary neuroendocrine tumors (principal); C80.1 Malignant (primary) neoplasm, unspecified; R91.8 Other nonspecific abnormal finding of lung field; K44.9 Diaphragmatic hernia without obstruction or gangrene
CPT/HCPCS: 71260; Q9967

== ENCOUNTER → 2019-12-07 10:08 | Outpatient (CLI) | payer MEDICARE, OTHER, SELFPAY ==
[2019-12-17 07:16] LABS: 5-HIAA, UR 24HR 162.5 mg/24 hr (0.0-14.9)
== END ==
PROVIDERS: PCP Family Medicine; Referring Provider Internal Medicine Hematology & Oncology; Visit Provider Internal Medicine Hematology & Oncology
DX: C7A.8 Other malignant neuroendocrine tumors (principal); C7B.8 Other secondary neuroendocrine tumors
CPT/HCPCS: 83497

== ENCOUNTER 2019-12-12 07:37 | Day surgery (SDC) | payer MEDICARE, OTHER, SELFPAY ==
[2019-12-12] VITALS (8 sets, daily range): BP systolic 101–129; BP diastolic 70–79; PULSE 80–99; RESP 14–18; TEMP 36.6–36.9; O2SAT 94–98; BMI 29.7
--- NOTE | 2019-12-12 | PATH_ITS ---
[facility] Accession Number: [id number] . 01 Material submitted: . PART A: colon - CECAL BIOPSIES PART B: colon - POLYPS AT 70CM . 02 Diagnosis: A. Cecum, Biopsies: Colonic mucosa with no diagnostic abnormality. Negative for active, chronic, and microscopic colitis. Negative for dysplasia and malignancy. . B. Colon At 70 CM, Polyps: Tubular adenoma x2. . [facility] 12/13/2019 1158 Local . 02 Electronically signed: . Ricardo Vee MD, PhD, Pathologist NPI- [id number] . 01 Gross description: . Part A: CECAL BIOPSIES: Received in formalin are 3 fragment(s) of greco, soft tissue measuring 0.2 x 0.2 x 0.2 cm to 0.3 x 0.2 x 0.2 cm submitted entirely in 1 cassette(s) Part B: POLYPS AT 70CM: Received in formalin are 2 fragment(s) of greco, soft tissue measuring 0.1 x 0.1 x 0.1 cm to 0.3 x 0.3 x 0.2 cm submitted entirely in 1 cassette(s) [place] [place] 2110 Local . 02 Pathologist provided ICD-10: K63.89, D12.6 . 02 CPT . 368376, [id number] Performed at: 01 [facility] [address], [place], [place] [id number] MD Keyur Downey MD Phone: [phone] Performed at: 02 [facility] [address] [place], [place] [id number] MD Dede Lauren MD Phone: [phone]
[2019-12-12] MEDS: LACTATED RINGERS 1,000 ML 200 ML IV (08:38)
--- NOTE | 2019-12-12 11:04 | P.HP_ITS ---
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 She has been seen by oncologoy who has requested a diganostic colonoscopy to evaluate for a primary source. 11/01/19-Irene is a 74-year-old woman chief referred by her primary care physician Dr. Edgar Madsen for evaluation of multiple liver masses. She presented to the emergency room October 2019 with complaint of right upper quadrant pain underwent a CT that demonstrated 2 predominant liver masses of 5 and 6 cm the right lobe of the liver as well as numerous smaller hepatic lesions. No personal or family history of prior hepatic or colonic malignancy. No history of cirrhosis she has a remote history of hepatitis A. Medical history significant for atrial fibrillation and she is anticoagulated with Eliquis. Patient History Medical History Atrial fibrillation (Chronic) Chicken pox (Resolved) Claustrophobia (Acute) Hepatitis A (Resolved ~1973) Hyperlipidemia (Acute) Measles (Resolved) Mumps (Resolved) Rubella (Resolved) Surgical History Anesthesia (Resolved) History of removal of cyst (Resolved ~1969) History of tubal ligation (Resolved ~1972) Family & Social History Family History Father Congestive heart failure Grandfather Stomach cancer Grandmother Multiple myeloma Social History: household members family Tobacco & Substance use: Smoking Status Never smoker alcohol intake never alcohol intake frequency holiday/special occasion Substance Use Type does not use Meds Home Medications and Allergies Home Medications Medication Instructions Recorded Confirmed Type apixaban 5 mg tablet 5 mg PO BID #180 tab 01/05/19 12/12/19 Rx diltiazem HCl 180 mg 180 mg PO DAILY #90 tab 01/05/19 12/12/19 Rx tablet,extended release 24 hr azelastine 137 mcg (0.1 %) nasal 2 spray NASAL BEDTIME #30 ml 10/13/19 12/12/19 Rx spray aerosol rosuvastatin [Crestor] 10 mg PO 2XW 12/04/19 12/12/19 History peg 3350-electrolytes 236 240 ml PO Q10M #4000 ml 12/06/19 12/12/19 Rx gram-22.74 gram-6.74 gram-5.86 gram solution Allergies Allergy/AdvReac Type Severity Reaction Status Date / Time Sulfa (Sulfonamide Allergy Mild rash, Verified 12/11/19 11:01 Antibiotics) strawberry patches doxycycline AdvReac Intermediate Blisters Verified 11/01/19 11:00 in mouth and itchy skin rosuvastatin AdvReac Mild diffuse Verified 12/12/19 08:41 muscle and joint pain Review of Systems Review of Systems Narrative: A 10 point review of systems is negative except as noted in the HPI Exam Vital Signs (past 8 hours): - 12/12/19 08:29 Temperature 98.4 F Pulse Rate 99 H Respiratory Rate 16 Blood Pressure 129/77 Pulse Oximetry 98 Oxygen Delivery Method Room Air Narrative Exam Narrative: General-no acute distress, well nourished HEENT-moist mucous membranes, no scleral icterus Neck-supple, no lymphadenopathy Chest- non labored respirations, clear to auscultation bilaterally Cardiac-regular rate no peripheral edema Abdomen-soft, nontender, non distended Extremities-warm, well perfused Neurological-alert and oriented, no focal deficits Assessment & Plan Assessment and plan (1) Neuroendocrine carcinoma metastatic to liver: Current visit: No Status: Acute Assessment & Plan narrative: The patient requires a diagnostic colonoscopy for a new diagnosis of 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 Technical details were discussed. Risks, benefits, alternatives explained. Risks including but not limited to myocardial infarction, aspiration, bleeding, pain, missed lesion, incomplete examination, need for further radiographic studies, colonic perforation, and need for major abdominal surgery were discussed. All questions were answered to their sati sfaction, and they are in agreement with this plan.
[2019-12-12] MEDS: MIDAZOLAM 5 MG/5 ML VIAL IV (12:01)
[2019-12-12] MEDS: fentaNYL 250 MCG/5 ML INJ IV (12:02)
--- NOTE | 2019-12-12 12:02 | PM.OP.ENDO ---
Operative Date/Time/Diagnoses Date of procedure: 12/12/19 Time of procedure: 12:02 Pre-op diagnosis: metastatic carcinoid Post-op diagnosis: same Procedure & Clinicians Study performed: colonoscopy Same procedure as scheduled: Yes Indications: carcinoid metastatic to liver, diagnostic colonoscopy Surgeon: Devendra Roldan Procedure Notes SCOAP/Timeout: performed Procedure in detail: Patient placed in left lateral decubitus position. Time out was performed. Procedural sedation was administered with Versed and Fentanyl. A rectal exam demonstrated no external hemorrhoids no internal masses. Colonoscopy scope was placed into the anus and advanced through the colon to the cecum. The ileocecal valve was identified. I attempted to intubate the ileocecal valve several times and was not successful. There was old clot within the cecum that washed away easily with irrigation. There was a submucosal fullness within the cecum that I biopsied several times using forceps. I tattooed the area as well. Homeostasis was observed. There was one adenomatous appearing polyp within the transverse colon that was removed with hot snare. There were two less than 1 adenomatous appearing polyps within the splenic flexure at 70 cm from the anal verge that were removed with biopsy forceps. Hemostasis was observed. The scope was slowly withdrawn. The sigmoid was notable for extensive diverticulosis. The quality of the prep was fair. The scope was retroflexed within the rectum and demonstrated grade 1 internal hemorrhoids. Scope withdrawal time: 9 Sedation minutes: 35 Findings: polyp and other findings (cecal submucosal mass) Specimen(s): other (1. cecal mass 2. transverse polyp 3. (2)polyps from 70 cm ) Complications: none Impression: submucoasl cecal mass Post-procedure Recommendations: Will call with biopsy results Disposition: same day surgery
== END 2019-12-12 12:40 | disposition home or self-care (01) ==
PROVIDERS: PCP Family Medicine; Referring Provider Family Medicine; Visit Provider Surgery
PROC: 0DJD8ZZ Inspection of Lower Intestinal Tract, Via Natural or Artificial Opening Endoscopic (ICD-10-PCS; CPT 45378; principal; 2019-12-12 09:00)
DX: K62.89 Other specified diseases of anus and rectum (principal); C7B.8 Other secondary neuroendocrine tumors; R10.9 Unspecified abdominal pain; R19.7 Diarrhea, unspecified; R63.4 Abnormal weight loss; K57.30 Diverticulosis of large intestine without perforation or abscess without bleeding; K64.0 First degree hemorrhoids; D12.6 Benign neoplasm of colon, unspecified
CPT/HCPCS: 45385; 45380; 45381; 99152; 99153; J2250; J3010

== ENCOUNTER → 2020-01-15 12:02 | Outpatient (CLI) | payer MEDICARE, OTHER, SELFPAY ==
[2020-01-15 12:19] LABS: Add Manual Diff / Slide Review NO; Basophils Absolute Auto 100 /uL (0-100); Basophils Percent Auto 0.9 % (0-2); Eosinophils Absolute Auto 200 /uL (0-450); Eosinophils Percent Auto 3.3 % (2-4); Hematocrit 42.7 % (36-46); Lymphocytes Absolute Auto 1600 /uL (1100-4500); Lymphocytes Percent Auto 23.4 % (25-40); Mean Corpuscular HGB Conc 32.7 % (30-36); Mean Corpuscular Volume 88.8 fL (80-100); Monocytes Absolute Auto 500 /uL (0-900); Monocytes Percent Auto 7.9 % (3-14); Neutrophils Absolute Auto 4400 /uL (1500-7000); Neutrophils Percent Auto 64.5 % (50-75); Platelet Count 259 X10^3/uL (150-400); Red Blood Cell Count 4.81 X10^6/uL (4.0-5.2); Red Cell Distribution Width 14.6 % (11.6-14.8); White Blood Cell Count 6.8 X10^3/uL (4.5-11.0)
[2020-01-15 12:37] LABS: Alanine Aminotransferase 19 IU/L (<35); Albumin 4.5 g/dL (3.5-5.0); Albumin Globulin Ratio 1.3 (1.0-2.8); Alkaline Phosphatase 101 U/L (38-126); Aspartate Aminotransferase 29 IU/L (14-36); BUN Creatinine Ratio 18.5 (6-22); Bilirubin Total 0.5 mg/dL (0.2-1.3); Blood Urea Nitrogen 15 mg/dL (7-17); Calcium 9.8 mg/dL (8.4-10.2); Carbon Dioxide 27 mmol/L (22-32); Chloride 106 mmol/L (98-107); Estimated Glomerular Filt Rate > 60.0 mL/min (>60); Globulin 3.4 g/dL (1.7-4.1); Glucose 100 mg/dL (80-110); HEMOLYSIS < 15 (0-50); Potassium 4.1 mmol/L (3.4-5.1); Sodium 138 mmol/L (137-145); Total Protein 7.9 g/dL (6.3-8.2)
== END ==
PROVIDERS: PCP Family Medicine; Referring Provider Internal Medicine Hematology & Oncology; Visit Provider Internal Medicine Hematology & Oncology
DX: C7A.8 Other malignant neuroendocrine tumors (principal); C7B.8 Other secondary neuroendocrine tumors
CPT/HCPCS: 36415; 80053; 85025

== ENCOUNTER → 2020-03-14 12:51 | Outpatient (CLI) | payer MEDICARE, OTHER, SELFPAY ==
[2020-03-14 13:06] LABS: Add Manual Diff / Slide Review NO; Basophils Absolute Auto 0 /uL (0-100); Basophils Percent Auto 0.7 % (0-2); Eosinophils Absolute Auto 100 /uL (0-450); Eosinophils Percent Auto 1.5 % (2-4); Hematocrit 41.2 % (36-46); Hemoglobin 14.1 g/dL (12.0-16.0); Lymphocytes Absolute Auto 1400 /uL (1100-4500); Lymphocytes Percent Auto 23.7 % (25-40); Mean Corpuscular HGB Conc 34.1 % (30-36); Mean Corpuscular Hemoglobin 30.3 PG (26-34); Mean Corpuscular Volume 88.7 fL (80-100); Monocytes Absolute Auto 500 /uL (0-900); Monocytes Percent Auto 9.2 % (3-14); Neutrophils Absolute Auto 3800 /uL (1500-7000); Neutrophils Percent Auto 64.9 % (50-75); Platelet Count 193 X10^3/uL (150-400); Red Blood Cell Count 4.64 X10^6/uL (4.0-5.2); Red Cell Distribution Width 15.7 % (11.6-14.8); White Blood Cell Count 5.9 X10^3/uL (4.5-11.0)
[2020-03-14 13:17] LABS: Alanine Aminotransferase 18 IU/L (<35); Albumin 4.6 g/dL (3.5-5.0); Albumin Globulin Ratio 1.5 (1.0-2.8); Alkaline Phosphatase 109 U/L (38-126); Aspartate Aminotransferase 29 IU/L (14-36); BUN Creatinine Ratio 17.8 (6-22); Bilirubin Total 0.6 mg/dL (0.2-1.3); Blood Urea Nitrogen 13 mg/dL (7-17); Calcium 9.9 mg/dL (8.4-10.2); Carbon Dioxide 31 mmol/L (22-32); Chloride 103 mmol/L (98-107); Estimated Glomerular Filt Rate > 60.0 mL/min (>60); Globulin 3.1 g/dL (1.7-4.1); Glucose 105 mg/dL (80-110); HEMOLYSIS < 15 (0-50); Potassium 4.4 mmol/L (3.4-5.1); Sodium 139 mmol/L (137-145); Total Protein 7.7 g/dL (6.3-8.2)
== END ==
PROVIDERS: Internal Medicine Hematology & Oncology; PCP Family Medicine; Referring Provider Family Medicine; Visit Provider Family Medicine
DX: C7A.8 Other malignant neuroendocrine tumors (principal); C7B.8 Other secondary neuroendocrine tumors
CPT/HCPCS: 36415; 80053; 85025

== ENCOUNTER → 2020-04-16 08:43 | Outpatient (CLI) | payer MEDICARE, OTHER, SELFPAY ==
--- NOTE | 2020-04-16 09:23 | DI.CT.S_ITS ---
PROCEDURE: CT ABDOMEN PELVIS W CON INDICATIONS: metastatic neuroendocrine tumor TECHNIQUE: After the administration of oral and intravenous contrast, 5 mm thick sections acquired from the diaphragms to the symphysis. 5 mm thick coronal and sagittal reformats were performed. For radiation dose reduction, the following was used: automated exposure control, adjustment of mA and/or kV according to patient size. COMPARISON: [facility], CT, CT BIOPSY LIVER, 11/23/2019, 12:29. [facility], CT, CT CHEST W CON, 12/05/2019, 14:53. [facility], CT, CT ABDOMEN PELVIS W CON, 10/25/2019, 21:09. FINDINGS: Image quality: Excellent. ABDOMEN: Lung bases: Lung bases are clear. Heart size is normal. Minimal pericardial effusion. Solid organs: 4 focal liver masses are present, as before. Previously, 2 of these were described. In the right lobe of the liver, on current image 12/2, is a 6.8 cm peripherally enhancing mass. On previous image 13/2 it measures 6.6 cm. The difference in measurements is felt to not be significant. On current image 34/2 and previous image 34/2 is a peripherally enhancing mass which currently measures 6.5 cm and previously measured 5.3 cm. On current image 40/2 and previous image 40/2 is a right lobe centrally necrotic liver mass which previously measured 2.5 cm and currently measures 2.2 cm. On current image 26/2 and previous image 26/2 is a subtle right lobe liver mass which previously measured 3.2 cm and currently measures 3.6 cm. But no new liver masses are identified. Gallbladder is unremarkable. Biliary system is non-dilated. Pancreas enhances normally. Spleen is normal in size and enhancement. Nonspecific mild enlargement of the right adrenal, stable. Kidneys are normal in size and enhancement, without hydronephrosis. Peritoneum and bowel: Again noted is sigmoid diverticulosis and mild diffuse thickening of the sigmoid and rectum. Stomach, small bowel, and colon loops are otherwise normal in caliber and wall thickness. No free fluid or air. Nodes and vessels: No retroperitoneal or mesenteric adenopathy. Aorta and inferior vena cava are normal in caliber. Miscellaneous: No ventral hernias. PELVIS: Genitourinary: Bladder wall thickness is normal. Miscellaneous: No inguinal hernias or adenopathy. Bones: No suspicious bony lesions. No vertebral body compression fractures. IMPRESSION: 1. This patient has at least 4 liver masses. At the time of the previous CT, the etiology was unknown. Patient has undergone subsequent CT-guided biopsy, and now by history has a diagnosis of metastatic neuroendocrine tumor. These masses are typically hyperenhancing on arterial phase. Measurements obtained during standard venous phase may be unreliable, as they quickly fill in with contrast. Therefore, it is difficult to see these lesions on venous phase, and to precisely measure whether not the lesions have changed in size. 1 of the lesions seems to have increased in size. However, this is not definite. Another lesion may have decreased in size. 2. No other evidence of metastatic disease. Comment: Would recommend following these lesions with multiphase liver CT or liver MR to better identify disease progression and possible response to therapy. Dictated by: Cuco Mendieta M.D. on 04/16/2020 at 15:15 Approved by: Cuco Mendieta M.D. on 04/16/2020 at 15:41
== END ==
PROVIDERS: PCP Family Medicine; Referring Provider Physical Medicine & Rehabilitation; Visit Provider Physical Medicine & Rehabilitation
DX: C7B.8 Other secondary neuroendocrine tumors (principal); C80.1 Malignant (primary) neoplasm, unspecified; K57.30 Diverticulosis of large intestine without perforation or abscess without bleeding
CPT/HCPCS: 74177; Q9967

== ENCOUNTER → 2020-11-05 12:17 | Outpatient (CLI) | payer MEDICARE, OTHER, SELFPAY ==
--- NOTE | 2020-11-05 12:50 | DI.CT.S_ITS ---
PROCEDURE: CT ABDOMEN WO/W CON INDICATIONS: metastatic neuroendocrine tumor to the liver TECHNIQUE: 4 phase scanning was performed. Non-contrast 5 mm axial sections acquired from the diaphragm to the iliac crests. Following the administration of intravenous contrast, 5 mm thick arterial-phase, portal venous-phase, and 5-minute delayed phase images were acquired through the liver. 5 mm thick coronal and sagittal reformats were performed. For radiation dose reduction, the following was used: automated exposure control, adjustment of mA and/or kV according to patient size. COMPARISON: [facility], CT, CT ABDOMEN PELVIS W CON, 04/16/2020, 9:33. [facility], CT, CT CHEST W CON, 12/05/2019, 14:53. [facility], CT, CT BIOPSY LIVER, 11/23/2019, 12:29. [facility], US, US ABDOMEN LIMITED, 03/13/2019, 20:39. [facility], CT, CT ABDOMEN PELVIS W CON, 10/25/2019, 21:09. FINDINGS: Image quality: Excellent. Lung bases: Lung bases are clear. Heart size is normal. Liver: The patient has biopsy-proven hepatic neuroendocrine tumor metastatic lesions. The current examination procedure included 3 phases of enhancement in addition to pre contrast imaging. Best visualization was obtained during mixed venous phase of contrast enhancement, and to a lesser degree at the final postcontrast delayed imaging scan series. There has been a sequential mild interval growth in size of the hepatic metastatic lesions, with reference to the prior studies and referenced to the most recent prior study. At the right hepatic dome there is a large mildly heterogeneously enhancing lesion with prior maximal dimension of 7.7 cm and current maximal dimension of approximately 7.9 cm. In April of 2020 this same lesion had measured 6.8 cm. More inferiorly near the right hepatic lobe tip a mass lesion that is ovoid had measured up to 7.9 cm. Other solid organs: Gallbladder normal Biliary system is non dilated. Pancreas is normal in morphology. Spleen is normal in size and enhancement. No adrenal nodules. Both kidneys demonstrate normal size and enhancement, without hydronephrosis or nephrolithiasis. Nodes and vessels: No retroperitoneal or mesenteric adenopathy by size criteria. Aorta and inferior vena cava are normal in size. Bowel and peritoneum: Unenhanced bowel loops are normal in caliber. No free fluid or air. Bones: No suspicious bony lesions. No vertebral body compression fractures. Miscellaneous: No ventral hernias. IMPRESSION: Small but definite interval continued enlargement of multiple metastatic liver lesions, biopsy proven to represent neuroendocrine tumor metastatic disease. No new lesion found. Dictated by: Yaakov Gutierrez M.D. on 11/05/2020 at 14:56 Approved by: Yaakov Gutierrez M.D. on 11/05/2020 at 15:12
== END ==
PROVIDERS: PCP Family Medicine; Referring Provider Family Medicine; Visit Provider Internal Medicine Hematology & Oncology
DX: C7A.8 Other malignant neuroendocrine tumors (principal); C7B.8 Other secondary neuroendocrine tumors
CPT/HCPCS: 74170; Q9967

== ENCOUNTER 2021-02-11 05:02 | Emergency (ER) | payer MEDICARE, OTHER, SELFPAY ==
[2021-02-11 05:18] VITALS: BP 164/92; PULSE 108; RESP 20; TEMP 36.8; O2SAT 97; BMI 29.9
[2021-02-11 05:34] LABS: INR 1.2 (0.9-1.3)
[2021-02-11 05:37] LABS: Add Manual Diff / Slide Review NO; Basophils Absolute Auto 100 /uL (0-100); Eosinophils Absolute Auto 200 /uL (0-450); Eosinophils Percent Auto 2.6 % (2-4); Hematocrit 41.3 % (36-46); Hemoglobin 13.8 g/dL (12.0-16.0); Lymphocytes Absolute Auto 1500 /uL (1100-4500); Lymphocytes Percent Auto 20.8 % (25-40); Mean Corpuscular HGB Conc 33.4 % (30-36); Mean Corpuscular Hemoglobin 29.8 PG (26-34); Mean Corpuscular Volume 89.1 fL (80-100); Monocytes Absolute Auto 700 /uL (0-900); Monocytes Percent Auto 9.3 % (3-14); Neutrophils Absolute Auto 4900 /uL (1500-7000); Neutrophils Percent Auto 66.3 % (50-75); PTT Partial Thromboplastin Tim 35 SECONDS (26.4-36.2); Platelet Count 208 X10^3/uL (150-400); Red Blood Cell Count 4.64 X10^6/uL (4.0-5.2); Red Cell Distribution Width 14.5 % (11.6-14.8); White Blood Cell Count 7.3 X10^3/uL (4.5-11.0)
[2021-02-11 05:38] LABS: Alanine Aminotransferase 22 IU/L (<35); Albumin 4.5 g/dL (3.5-5.0); Albumin Globulin Ratio 1.3 (1.0-2.8); Alkaline Phosphatase 115 U/L (38-126); Aspartate Aminotransferase 31 IU/L (14-36); BUN Creatinine Ratio 15.6 (6-22); Bilirubin Total 0.7 mg/dL (0.2-1.3); Blood Urea Nitrogen 10 mg/dL (7-17); Calcium 9.7 mg/dL (8.4-10.2); Carbon Dioxide 25 mmol/L (22-32); Chloride 108 mmol/L (98-107); Estimated Glomerular Filt Rate > 60.0 mL/min (>60); Globulin 3.4 g/dL (1.7-4.1); Glucose 134 mg/dL (80-110); HEMOLYSIS < 15 (0-50); Lipase 68 U/L (23-300); Potassium 3.6 mmol/L (3.4-5.1); Sodium 141 mmol/L (137-145); Total Protein 7.9 g/dL (6.3-8.2)
--- NOTE | 2021-02-11 06:15 | DI.CT.S_ITS ---
PROCEDURE: CT CHEST ABD PEL W CON INDICATIONS: Right upper quadrant pain, Neuro endocrine tumor, with liver Mets TECHNIQUE: After the administration of intravenous contrast, 5 mm thick sections acquired from the lung apices to the symphysis. 5 mm coronal and sagittal reformats were performed, with additional 7 mm MIP reformats through the lungs. For radiation dose reduction, the following was used: automated exposure control, adjustment of mA and/or kV according to patient size. COMPARISON: [facility], CT, CT ABDOMEN WO/W CON, 11/05/2020, 12:45. [facility], CT, CT ABDOMEN PELVIS W CON, 04/16/2020, 9:33. [facility], CT, CT CHEST W CON, 12/05/2019, 14:53. [facility], CT, CT ABDOMEN PELVIS W CON, 10/25/2019, 21:09. FINDINGS: Image quality: Excellent. CHEST: Lungs and pleura: Stable 3 mm subpleural pulmonary nodule, posterior right lower lobe, current image 192/3. Stable 3 mm pulmonary nodule, inter basal segment right lower lobe, image 159/3. No acute airspace opacities. Stable 2 mm pulmonary nodule, left lower lobe, image 188/3. No pleural effusions or pneumothorax. Central and peripheral airways appear patent and normal in caliber. Mediastinum: Heart size is normal. No pericardial effusion. No mediastinal or hilar adenopathy by size criteria. Thoracic aorta and central pulmonary arteries are normal in size. Esophagus is normal in caliber. No hiatal hernia. Chest wall: No axillary or supraclavicular adenopathy by size criteria. Thyroid gland is unremarkable . ABDOMEN: Solid organs: Liver: Again noted are multiple known liver metastatic lesions which are consistent with biopsy-proven neuroendocrine tumor. The imaging phase is not quite the same as any of the phases in the most recent prior study, and direct comparison of lesion size is somewhat challenging. Again noted is a right hepatic dome lesion which most recently was measured as 7.9 cm. The periphery of this lesion is less well seen, and is relatively isodense to the surrounding liver. Attempting to obtain a similar measurement yields a diameter of 7.3 cm. An inferior right lobe liver lesion most recently was measured as 7.9 cm. The periphery is again isodense to liver, and today's measurement is 7.6 cm. As before, multiple other liver lesions are seen. Some of these lesions are quite vague on the current study, as they are nearly isodense to the surrounding normal liver parenchyma. No new liver lesions are identified. No prior lesions which are increasing in size are identified. Gallbladder is unremarkable . Biliary system is non dilated. Pancreas enhances normally. Spleen is normal in size and enhancement. No adrenal nodules. Kidneys demonstrate normal size and enhancement, without hydronephrosis. Peritoneum and bowel: Bowel loops demonstrate normal wall thickness and caliber. No free fluid or air. There is a mesenteric mass present. It is seen in retrospect on the previous studies. On the study dated 10/25/2019, it measured 2.1 cm. It thin decreased in size, and on the study of 04/16/2020, it measured 1.1 cm. On current image 84/ it measures 1.8 cm. Nodes and vessels: No retroperitoneal or mesenteric adenopathy by size criteria. Aorta and inferior vena cava are normal in size. Miscellaneous: No ventral hernias. PELVIS: Genitourinary: Bladder wall thickness is normal. Miscellaneous: No inguinal hernias or adenopathy. There are bilateral subcutaneous posterior nodular densities in the lower abdominal/pelvic region, not significantly changed from the most recent prior study, of uncertain etiology. Bones: No suspicious bony lesions. No vertebral body compression fractures. IMPRESSION: 1. No evidence of metastatic disease in the chest. 2. Stable small pulmonary nodules likely represent benign disease. 3. Known hepatic metastatic disease. Direct comparison for changes in size of individual lesions is challenging, as the most recent prior study was a multiphase study and, on the current study, which is a single phase, a significant portion of periphery of the lesions is isodense to the liver. 4. There is a mesenteric mass present. It is rather small. It is smaller than it was on the initial study, but is larger than it was on subsequent studies. Dictated by: Cuco Mendieta M.D. on 02/11/2021 at 10:33 Approved by: Cuco Mendieta M.D. on 02/11/2021 at 11:10
[2021-02-11] MEDS: ONDANSETRON 4 MG/2 ML INJ IV (06:22)
[2021-02-11] MEDS: MORPHINE 4 MG/ML INJ IV (06:23)
--- NOTE | 2021-02-11 06:55 | ED_ITS ---
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 She is having increasing right upper quadrant pain going around her back and some in her left upper quadrant as well. No nausea or vomiting fever or chills. She has not had pain quite like this and is concerned. MD complaint: abdominal pain Onset (ago): hour(s) Location: RUQ Severity: moderate Quality: cramping Radiation: none Related Data Home Medications Medication Instructions Recorded Confirmed threonine (bulk) [L-Threonine] 1 ea MISCELLANEOUS DAILY 04/15/20 01/02/21 cholecalciferol (vitamin D3) 25 mcg PO DAILY 08/01/20 01/02/21 [Vitamin D3] zinc 10 mg PO DAILY 08/01/20 01/02/21 flaxseed 1,000 mg PO TID 11/21/20 01/02/21 vitamin B complex [B Complex] 1 cap DAILY 01/02/21 01/02/21 Previous Rx's Medication Instructions Recorded apixaban 5 mg tablet 5 mg PO BID #180 tab 01/05/19 diltiazem HCl 180 mg 180 mg PO DAILY #90 tab 01/05/19 tablet,extended release 24 hr hydrocodone-acetaminophen 1 tab PO Q6H PRN #10 tab 02/11/21 ondansetron 4 mg PO Q8H PRN #10 tab 02/11/21 Allergies Allergy/AdvReac Type Severity Reaction Status Date / Time Sulfa (Sulfonamide Allergy Mild rash, Verified 12/11/19 11:01 Antibiotics) strawberry patches doxycycline AdvReac Intermediate Blisters Verified 11/01/19 11:00 in mouth and itchy skin rosuvastatin AdvReac Mild diffuse Verified 12/12/19 08:41 muscle and joint pain Review of Systems Review of Systems Narrative: GENERAL: Denies chills, fatigue, malaise, fever, sweats, travel HEENT: Denies sinus pain, ear pain, sore throat, difficulty swallowing, neck pain RESPIRATORY: Denies dyspnea, cough, wheezing, hemoptysis, sputum. CARDIOVASCULAR: Denies chest pain, palpitations, orthopnea, edema GASTROINTESTINAL: See HPI : Denies dysuria, frequency, incontinence, hematuria, urinary retention, flank pain. MUSCULOSKELETAL: Denies weakness, joint pain, or bony pain SKIN: No rash, no erythema, no pruritus NEUROLOGIC: Denies weakness, dizziness, headache, numbness, change in speech, confusion PSYCHIATRIC: No concerning psychosocial issues. 12 point review of systems is negative except for those stated above and HPI Patient History Medical History (Updated 02/11/21 @ 07:58 by Jyoti Márquez DO) Atrial fibrillation Chicken pox Claustrophobia Hepatitis A (~1973) Hyperlipidemia Liver masses Measles Mumps Neuroendocrine carcinoma metastatic to liver Rubella Surgical History Anesthesia History of removal of cyst (~1969) History of tubal ligation (~1972) Family History Father Congestive heart failure Grandfather Stomach cancer Grandmother Multiple myeloma Social History household members: family Smoking Status: Never smoker second hand exposure: No alcohol intake: never substance use type: does not use Smoking Status: Never smoker alcohol intake frequency: holidays/special occasions only Substance Use Type: does not use Exam Initial Vital Signs Initial Vital Signs: Vital Signs Temperature 98.2 F 02/11/21 05:18 Pulse Rate 108 H 02/11/21 05:18 Respiratory Rate 20 02/11/21 05:18 Blood Pressure 164/92 H 02/11/21 05:18 Pulse Oximetry 97 02/11/21 05:18 GENERAL: Alert very pleasant 75-year-old female and in [no acute] distress. HEENT: Head atraumatic,EOMI, pupils reactive, face symmetric, [moist] mucous membranes CARDIOVASCULAR: Regular rate and rhythm without murmurs, rubs or gallops. RESPIRATORY: Breath sounds equal bilaterally, no wheezes rales or rhonchi. ABDOMEN: Soft, nontender. Normoactive bowel sounds all 4 quadrants. No guarding or rebound. EXTREMITIES: Normal range of motion, no clubbing or edema. Neurovascularly intact NEUROLOGICAL: Alert and oriented x4.Normal gait and speech. Cranial nerves II through XII grossly intact. SKIN: Warm, dry, no laceration, no petechiae, no rashes or lesions. Course Orders Ordered: ED Orders 02/11/21 05:20 Complete Blood Count AUTO DIFF Stat Comprehensive Metabolic Panel Stat Lipase Stat Partial Thromboplastin Time Stat Prothrombin Time INR Stat 02/11/21 05:25 EKG-12 Lead Stat 02/11/21 06:15 CT chest abd pel w con Stat Discontinued Medications Morphine Sulfate (Morphine 4 Mg/Ml Inj) 4 mg IV NOW ONE Stop: 02/11/21 06:16 Last Admin: 02/11/21 06:23 Dose: 4 mg Documented by: STEPH Ondansetron HCl (Ondansetron 4 Mg/2 Ml Inj) 4 mg IV NOW ONE Stop: 02/11/21 06:16 Last Admin: 02/11/21 06:22 Dose: 4 mg Documented by: STEPH Vital Signs Vital signs: Vital Signs - 8 hr 02/11/21 05:18 02/11/21 07:40 02/11/21 07:41 Temperature 98.2 F Pulse Rate 108 H 88 88 Respiratory Rate 20 Blood Pressure 164/92 H 126/73 Pulse Oximetry 97 92 91 MDM - Abdominal Pain Lab Data Attestation: I reviewed the patient's lab results. Result diagrams: 02/11/21 05:20 02/11/21 05:20 Labs: Lab Results 02/11/21 02/11/21 02/11/21 Range/Units 05:20 05:20 05:20 WBC 7.3 (4.5-11.0) X10^3/uL RBC 4.64 (4.0-5.2) X10^6/uL Hgb 13.8 (12.0-16.0) g/dL Hct 41.3 (36-46) % MCV 89.1 (80-100) fL MCH 29.8 (26-34) PG MCHC 33.4 (30-36) % RDW 14.5 (11.6-14.8) % Plt Count 208 (150-400) X10^3/uL Neut % (Auto) 66.3 (50-75) % Lymph % (Auto) 20.8 L (25-40) % Spink % (Auto) 9.3 (3-14) % Eos % (Auto) 2.6 (2-4) % Baso % (Auto) 1.0 (0-2) % Neut # (Auto) 4900 (1316-8146) /uL Lymph # (Auto) 1500 (4076-7335) /uL Spink # (Auto) 700 (0-900) /uL Eos # (Auto) 200 (0-450) /uL Baso # (Auto) 100 (0-100) /uL PT 13.0 H (10.1-12.7) SECONDS INR 1.2 (0.9-1.3) APTT 35 D (26.4-36.2) SECONDS Sodium 141 (137-145) mmol/L Potassium 3.6 (3.4-5.1) mmol/L Chloride 108 H (98-107) mmol/L Carbon Dioxide 25 (22-32) mmol/L BUN 10 (7-17) mg/dL Creatinine 0.64 (0.52-1.04) mg/dL Estimated GFR > 60.0 (>60) mL/min BUN/Creatinine Ratio 15.6 (6-22) Glucose 134 H (80-110) mg/dL Calcium 9.7 (8.4-10.2) mg/dL Total Bilirubin 0.7 (0.2-1.3) mg/dL AST 31 (14-36) IU/L ALT 22 (<35) IU/L Alkaline Phosphatase 115 (38-126) U/L Total Protein 7.9 (6.3-8.2) g/dL Albumin 4.5 (3.5-5.0) g/dL Globulin 3.4 (1.7-4.1) g/dL Albumin/Globulin Ratio 1.3 (1.0-2.8) Lipase 68 (23-300) U/L Point of care testing: Urine Dip Bedside Urine Glucose Negative Bedside Urine Bilirubin - Negative Bedside Urine Ketone - Negative Urine Specific Burdett 1.020 Bedside Urine Occult Blood - Negative Bedside Urine pH 6.0 Bedside Urine Protein - Negative Bedside Urine Urobilinogen - Negative Bedside Urine Nitrite - Negative Bedside Urine Leukocytes - Negative Esterase Imaging Data CT scan - abdomen/pelvis: Radiologist's Impression: Hepatic metastasis disease without evidence of biliary obstruction or ascites. Duodenal diverticulum distal colonic di verticulosis without evidence of associated diverticulitis. Right mid abdominal mesenteric mass as described above this is likely to represent patient's primary tumor irregular mass within mesentery of the right mid abdomen which measures approximately 1.7 x 1.8 x 1.7 cm in size Small bilateral adrenal masses CT scan - chest: Radiologist's Impression: No acute intrathoracic abnormality. There are 2 right lower lobe pulmonary nodules as outlined above MDM Narrative Medical decision making narrative: Patient's blood work overall looks reassuring. She has no new metastasis although tumor in right mid abdomen is now seen. Patient's pain is much better controlled. At this time recommend outpatient follow-up. Discharge Plan Departure Patient Disposition: Home Clinical Impression: Neuroendocrine carcinoma metastatic to liver Instructions: Neuroendocrine Tumors Activity Restrictions/Additional Instructions: *You have been diagnosed with neuroendocrine tumor with metastasis to liver *What to do: At this time I recommend pain control at home. *Continue to take medications as directed--> SENT TO [facility] 1 tablet every 6 hours if needed for severe pain Zofran 4 mg every 8 hours if needed for nausea vomiting *Follow up with your primary care provider in 2-3 days *Return to ER if you should have increasing pain persistent vomiting or any new, worsening or concerning symptoms Prescriptions: New hydrocodone-acetaminophen 5-325 mg tablet 1 tab PO Q6H PRN (Reason: pain) Qty: 10 RF: 0 ondansetron 4 mg tablet,disintegrating 4 mg PO Q8H PRN (Reason: nausea and vomiting) Qty: 10 RF: 0 No Action diltiazem HCl 180 mg tablet extended release 24 hr 180 mg PO DAILY Qty: 90 RF: 0 Eliquis 5 mg tablet 5 mg PO BID Qty: 180 RF: 1 L-Threonine Crystals 1 ea MISCELLANEOUS DAILY RF: 0 zinc 10 mg Tablet 10 mg PO DAILY RF: 0 cholecalciferol (vitamin D3) [Vitamin D3] 25 mcg (1,000 unit) Tablet,Chewable 25 mcg PO DAILY RF: 0 flaxseed 1,000 mg Capsule 1,000 mg PO TID RF: 0 vitamin B complex [B Complex] Capsule 1 cap DAILY RF: 0 Referrals: Edgar Madsen DO [Primary Care Provider] -
[2021-02-11 07:40] VITALS: PULSE 88; O2SAT 92
[2021-02-11 07:41] VITALS: BP 126/73; PULSE 88; O2SAT 91
== END 2021-02-11 08:17 | disposition home or self-care (01) ==
PROVIDERS: Emergency Provider Emergency Medicine; PCP Family Medicine
DX: C7A.8 Other malignant neuroendocrine tumors (principal); R10.11 Right upper quadrant pain
CPT/HCPCS: 36415; 71260; 74177; 80053; 81003; 83690; 85025; 85610; 85730; 93005; 96374; 96375; 99284; J2270; J2405; Q9967

== ENCOUNTER → 2021-05-14 11:35 | Outpatient (CLI) | payer MEDICARE, OTHER, SELFPAY ==
[2021-05-14 13:38] LABS: COVID19 -Nasal RAPID POSITIVE (Negative)
== END ==
PROVIDERS: PCP Family Medicine; Visit Provider Nurse Practitioner
DX: U07.1 COVID-19 (principal)
CPT/HCPCS: 87635

== ENCOUNTER → 2021-05-30 10:54 | Outpatient (CLI) | payer MEDICARE, OTHER, SELFPAY ==
[2021-06-05 11:22] LABS: 5-HIAA, UR 24HR 178.4 mg/24 hr (0.0-14.9); 5-HIAA, Urine 89.2 mg/L (Undefined)
== END ==
PROVIDERS: Internal Medicine Hematology & Oncology; PCP Family Medicine; Referring Provider Family Medicine; Visit Provider Family Medicine
DX: C7A.8 Other malignant neuroendocrine tumors (principal); C7B.8 Other secondary neuroendocrine tumors
CPT/HCPCS: 83497

== ENCOUNTER → 2021-09-18 09:33 | Outpatient (CLI) | payer MEDICARE, OTHER, SELFPAY ==
[2021-09-18 11:17] LABS: Appearance Urine UA SL CLOUDY; Bilirubin Urine UA NEGATIVE (NEGATIVE); Color Urine UA ORANGE; Glucose Urine UA TRACE g/dL (Negative); Ketones Urine UA NEGATIVE (NEGATIVE); Leukocyte Esterase Urine UA NEGATIVE (NEGATIVE); Nitrite Urine UA POSITIVE (Negative); Occult Blood Urine UA NEGATIVE (Negative); Protein Urine UA 1+ (Negative)
[2021-09-18 11:36] LABS: Bacteria Urine Moderate (10-30); Culture Indicated Urine Specimen Cultured; Hyaline Casts Urine 1-5/LPF; RBC Urine 0-1/HPF (0-5/HPF); Squamous Epithelial Cell Urine 1-5 /HPF (0-5/HPF); WBC Urine 30-100/HPF (0-5/HPF)
== END ==
PROVIDERS: PCP Family Medicine; Visit Provider Family Medicine
DX: N39.0 Urinary tract infection, site not specified (principal)
CPT/HCPCS: 81001; 87086

== ENCOUNTER → 2021-10-03 10:54 | Outpatient (CLI) | payer MEDICARE, OTHER, SELFPAY ==
--- NOTE | 2021-10-03 10:55 | DI.CT.S_ITS ---
PROCEDURE: CT CHEST ABD PEL W CON INDICATIONS: metastatic neuroendocrine tumor TECHNIQUE: After the administration of oral and intravenous contrast, axial sections acquired from the supraclavicular neck to the pubic symphysis. Coronal and sagittal reformats were performed. For radiation dose reduction, the following was used: automated exposure control, adjustment of mA and/or kV according to patient size. COMPARISON: [facility], CT, CT CHEST W CON, 12/05/2019, 14:53. CT, CT ABDOMEN PELVIS W CON, 10/25/2019, 21:09. [facility], CT, CT CHEST ABD PEL W CON, 02/11/2021, 6:22. FINDINGS: Image quality: Excellent. CHEST: Lower Neck: No enlarged lymph nodes. Thyroid: Within normal limits. Axillae: No enlarged lymph nodes. Chest Wall: Unremarkable. Lungs and Airways: A few small pulmonary nodules. For example: -right lower lobe 0.4 cm, (5/195), unchanged. -left lower lobe 0.4 cm, (5/161), unchanged. No new or enlarging pulmonary nodules. Pleura: No pneumothorax or pleural effusions. Heart: Heart size is normal. Moderate coronary calcifications. Trace pericardial fluid. Thoracic Vessels: The aorta and pulmonary arteries demonstrate normal size. Mediastinum and Jewell: Possible right hilar node, (2/32). Esophagus: No wall thickening. Small hiatal hernia. ABDOMEN: Liver: -upper right lobe lesion measures approximately 9.8 x 8.8 cm, (2/53), previously 9.1 x 6.7 cm. -lower right lobe lesion measures approximately 8.4 x 5.9 cm, (2/76), previously 6 x 5.1 cm. Additional small lesions. Gallbladder: Unremarkable. Biliary ducts: Unremarkable. Pancreas: No lesion identified. Spleen: Unremarkable. Adrenal Glands: Mild thickening of the right adrenal gland is unchanged. Kidneys and Ureters: No hydronephrosis. Small cyst in the left kidney is unchanged. Stomach and Bowel: Stomach, small bowel loops, and colon are unremarkable. Diverticulosis. The appendix is not dilated. Peritoneum: No abnormal intraperitoneal fluid. No free air. Mid abdomen mesenteric mass measuring 2.1 x 2.1 cm, (292), previously 1.9 x 1.9 cm. Ventral Wall: No hernia. Right flank subcutaneous nodularity is unchanged. Possible injection granuloma. And suspected injected granuloma at the right buttocks. Abdominal Nodes: No retroperitoneal or mesenteric adenopathy by size criteria. Vessels: Aorta and inferior vena cava are normal in size. PELVIS: Pelvic Organs: Retroverted uterus. Bladder: Unremarkable. Pelvic Nodes: No enlarged lymph nodes. Miscellaneous: No inguinal hernias are seen. Bones: Right posterior ilium sclerotic lesion, (2/101), unchanged. Right ilium sclerotic focus. DDD at the L5-S1 disc space. IMPRESSION: 1. A few small pulmonary nodules are unchanged. Possible right hilar node is unchanged. 2. Hepatic metastases are increased in size. 3. Mid mesenteric mass is slightly increased in size. No ascites. 4. Sclerotic focus at the posterior right ilium is unchanged. Indeterminate for metastatic disease. Consider bone scan for further evaluation. Dictated by: Jake Alanis M.D. on 10/03/2021 at 15:07 Approved by: Jake Alanis M.D. on 10/03/2021 at 15:34
== END ==
PROVIDERS: PCP Family Medicine; Referring Provider Internal Medicine Hematology & Oncology; Visit Provider Internal Medicine Hematology & Oncology
DX: C7A.8 Other malignant neuroendocrine tumors (principal); C7B.8 Other secondary neuroendocrine tumors; R91.8 Other nonspecific abnormal finding of lung field; R19.09 Other intra-abdominal and pelvic swelling, mass and lump
CPT/HCPCS: 71260; 74177

== ENCOUNTER → 2021-10-07 15:54 | Outpatient (CLI) | payer MEDICARE, OTHER, SELFPAY ==
--- NOTE | 2021-10-07 15:56 | DI.ECHO.S_ITS ---
[facility] +---------+ : : [address] : [place] : : : : [id number] : : : : Phone: [phone] Echocardiogram Report + + :Name: MANDY CONLEY Study Date: 10/07/2021 Height: 68 in : :[facility] ReadingLocation: Weight: 199 lb : : Gender: Female BSA: 2.0 m2 : :: 1945 Age: 76 yrs BP: 130/87 mmHg: :Reason For Study: ATRIAL FIBRILLATION : :Ordering Physician: MARCI, : :JIAN Performed By: Lizeth Chamorro : :Referring: JIAN COVARRUBIAS : + + Interpretation Summary 1) Normal left ventricular size, thickness, wall motion, and systolic function (EF 55-60%). 2) Normal sized right ventricle with normal fnction. 3) The left atrium is severely dilated. The right atrium is moderately dilated. 4) No significant valvular abnormalities 5) A patent foramen ovale is suspected based color doppler. 6 Compared to the Echo done 03/22/2019, no significant change. Procedure: A two-dimensional transthoracic echocardiogram with color flow and Doppler was performed. The study quality was technically adequate. There is no prior echocardiogram noted for this patient. The heart rate ranged between 68-93 bpm during the study. Left Ventricle: The left ventricle is normal in size and wall thickness. The ejection fraction is estimated to be 55-60%. Left ventricular systolic function appears normal without focal wall motion abnormalities. Right Ventricle: The right ventricle is normal in size and function. Atria: The left atrium is severely dilated. The right atrium is moderately dilated. A patent foramen ovale is suspected. Mitral Valve: The mitral valve is normal in structure and function. There is mild mitral regurgitation. Aortic Valve: The aortic valve is trileaflet. The aortic valve opens well. There is no aortic valve stenosis. No aortic regurgitation is present. Tricuspid Valve: The tricuspid valve is normal in structure and function. There is mild tricuspid regurgitation. The right ventricular systolic pressure is estimated to be at least 23 mmHg based on an estimated right atrial pressure of 3 mm Hg. Pulmonic Valve: The pulmonic valve leaflets are thin and pliable; valve motion is normal. There is no pulmonic valvular regurgitation. Great Vessels: The aortic root is normal size. The ascending aorta is at the upper limits of normal in size. The IVC is of normal diameter and collapses greater than 50% with a sniff. This suggests a low right atrial pressure of 3 mm Hg. Pericardium/ Pleura There is no pericardial effusion. There is no pleural effusion. MMode/2D Measurements & Calculations LVIDd: 4.5 cm LVOT diam: 2.1 cm LVIDs: 2.9 cm Ao root diam: 3.2 cm FS: 35.9 % asc Aorta Diam: 3.7 cm IVSd: 0.90 cm Ao Arch Diam (Prox Trans): 2.8 cm LVPWd: 0.97 cm LV pace. diameter/BSA (cm/m^2): 2.2 LV sys. diameter/BSA (cm/m^2): 1.4 LA A2 area: 32.3 cm2 RA long axis: 6.0 cm LA A4 area: 24.6 cm2 RA area: 22.3 cm2 LA length (vol): 6.4 cm RA vol: 70.0 ml LA vol: 105.8 ml RA : 34.3 ml/m2 LA vol index: 51.9 ml/m2 IVC diam: 1.1 cm RVD1 (basal): 3.6 cm RVD2 (mid): 2.9 cm TAPSE: 1.7 cm Doppler Measurements & Calculations Ao V2 max: 121.3 cm/sec LVOT Max Juan M: 85.6 cm/sec Ao V2 mean: 83.7 cm/sec LV V1 max P.9 mmHg Ao max P.9 mmHg LV V1 VTI: 17.1 cm Ao mean P.2 mmHg FAM(I,D): 2.4 cm2 Ao V2 VTI: 25.0 cm FAM(V,D): 2.5 cm2 sev ratio: 0.69 FAM indexed to BSA (cm^2/m^2): 1.2 MV E max juan m: 94.9 cm/sec TR max juan m: 223.9 cm/sec MV A max juan m: 2.2 cm/sec TR max P.1 mmHg MV E/A: 42.7 PA V2 max: 93.0 cm/sec Med Peak E' Juan M: 6.3 cm/sec PA V2 mean: 60.6 cm/sec E/E' med: 15.1 PA mean P.7 mmHg Lat Peak E' Juan M: 11.3 cm/sec PA pr(Accel): 53.3 mmHg E/E' lat: 8.4 E/e' average: 11.7 MV dec time: 0.21 sec SV(LVOT): 59.5 ml Reading Physician:08:55 PM
== END ==
PROVIDERS: PCP Family Medicine; Referring Provider Internal Medicine Hematology & Oncology; Visit Provider Internal Medicine Hematology & Oncology
DX: C7A.8 Other malignant neuroendocrine tumors (principal); C7B.8 Other secondary neuroendocrine tumors; I48.91 Unspecified atrial fibrillation; I08.1 Rheumatic disorders of both mitral and tricuspid valves
CPT/HCPCS: 93306

== ENCOUNTER → 2022-08-19 09:14 | Outpatient (CLI) | payer MEDICARE, OTHER, SELFPAY ==
[2022-08-19 11:44] LABS: Cholesterol 239 mg/dL (140-199); HDL Cholesterol 64 mg/dL (40-60); LDL Cholesterol Calculated 140 mg/dL (<100); Triglycerides 173 mg/dL (35-150)
== END ==
PROVIDERS: PCP Family Medicine; Referring Provider Internal Medicine Cardiovascular Disease; Visit Provider Internal Medicine Cardiovascular Disease
DX: E78.5 Hyperlipidemia, unspecified (principal); I48.19 Other persistent atrial fibrillation; Z79.01 Long term (current) use of anticoagulants
CPT/HCPCS: 36415; 80061

== ENCOUNTER 2022-09-19 03:29 | Emergency (ER) | payer MEDICARE, OTHER, SELFPAY ==
[2022-09-19] VITALS (8 sets, daily range): BP systolic 130–139; BP diastolic 71–77; PULSE 84–91; RESP 20; TEMP 36.8; O2SAT 96–98; BMI 28.7
--- NOTE | 2022-09-19 03:51 | ED.GENADULT ---
HPI - General Adult General Chief complaint: Abdominal Pain Stated complaint: Abd.Pain/Vomiting/Cancer pt. Time Seen by Provider: 09/19/22 03:32 Source: patient Mode of arrival: Ambulatory Limitations: no limitations History of Present Illness HPI narrative: Patient is a 77-year-old female with a history of cancer in her abdomen. Has had partial resection of her liver. Is here for evaluation of upper abdominal discomfort. She states that it started yesterday. She is also have nausea and vomiting. No fevers. She states that the pain is radiating to her back. It feels like when she was having gallbladder issues in the past but her gallbladder has been removed. No change in bowel habits. She tried Zofran at home without any improvement of symptoms. Related Data Home Medications Medication Instructions Recorded Confirmed threonine (bulk) (L-Threonine 1 ea miscellaneous DAILY 04/15/20 08/20/22 crystals) cholecalciferol (vitamin D3) 25 25 mcg PO DAILY 08/01/20 08/20/22 mcg (1,000 unit) chewable tablet (Vitamin D3) zinc 10 mg tablet 10 mg PO DAILY 08/01/20 08/20/22 flaxseed 1,000 mg capsule 1,000 mg PO DAILY 11/21/20 08/20/22 vitamin B complex 1 cap DAILY 01/02/21 08/20/22 omeprazole magnesium 20 mg 20 mg PO DAILY 03/13/21 08/20/22 tablet,delayed release (Prilosec OTC) loperamide 2 mg capsule 2 mg PRN PRN Diarrhea 07/03/21 08/20/22 diltiazem HCl 180 mg 180 mg PO DAILY 02/16/22 08/20/22 capsule,extended release 24 hr acetaminophen 325 mg capsule 650 mg PO Q4H PRN Pain (Scale 03/19/22 08/20/22 (Tylenol) Score 4-6) Previous Rx's Medication Instructions Recorded apixaban 5 mg tablet (Eliquis) 5 mg PO BID #180 tabs 01/05/19 lorazepam 1 mg tablet 1 mg PO PRN PRN Anxiety #20 tabs 07/03/21 promethazine 25 mg tablet 25 mg PO Q6H PRN nausea and 09/19/22 vomiting #10 tabs Allergies Allergy/AdvReac Type Severity Reaction Status Date / Time Sulfa (Sulfonamide Allergy Mild rash, Verified 02/16/22 12:46 Antibiotics) strawberry patches doxycycline AdvReac Intermediate Blisters Verified 02/16/22 12:46 in mouth and itchy skin rosuvastatin AdvReac Mild diffuse Verified 02/16/22 12:46 muscle and joint pain Review of Systems Constitutional Constitutional: Reports system reviewed and no additional complaints, except as documented Cardiovascular Cardiovascular: Reports system reviewed and no additional complaints, except as documented Respiratory Respiratory: Reports system reviewed and no additional complaints, except as documented Gastrointestinal Gastrointestinal: Reports system reviewed and no additional complaints, except as documented Genitourinary Genitourinary: Reports system reviewed and no additional complaints, except as documented Integumentary/Breasts Skin/Breast: Reports system reviewed and no additional complaints, except as documented Neurologic Neurologic: Reports system reviewed and no additional complaints, except as documented Hematologic/Lymphatic On Anticoagulants: Yes Patient History Medical History Atrial fibrillation Chicken pox Claustrophobia Hepatitis A (~1973) Hyperlipidemia Liver masses Measles Mumps Neuroendocrine carcinoma metastatic to liver Physician orders for life-sustaining treatment (POLST) form indicates patient wish for [id number] status Rubella UTI (urinary tract infection) Surgical History Anesthesia History of removal of cyst (~1969) History of tubal ligation (~1972) Family History Father Congestive heart failure Grandfather Stomach cancer Grandmother Multiple myeloma Social History household members: family Smoking Status: Never smoker second hand exposure: No alcohol intake: never substance use type: does not use Smoking Status: Never smoker alcohol intake frequency: holidays/special occasions only Substance Use Type: does not use Exam Initial Vital Signs Initial Vital Signs: Vital Signs Temperature 98.2 F 09/19/22 03:35 Pulse Rate 88 09/19/22 03:35 Respiratory Rate 20 09/19/22 03:35 Blood Pressure 139/75 09/19/22 03:35 Pulse Oximetry 97 09/19/22 03:35 Oxygen Delivery Method 09/19/22 03:35 HENMT Head: normal to inspection and normocephalic Resp Effort & Inspection: normal respiratory effort Auscultation: clear to auscultation bilaterally Cardio Rate: regular rate Rhythm: abnormal rhythm GI Inspection: non-distended Palpation: No firm, No guarding and tender (Upper abdomen) Skin Other: Healed surgical scar on her abdomen consistent with her stated history is Neuro General: patient alert, patient awake and moves all extremities Extrem General: capillary refill normal Course Orders Ordered: ED Orders 09/19/22 03:51 CT abdomen pelvis w con Stat Complete Blood Count AUTO DIFF Stat Comprehensive Metabolic Panel Stat Lipase Stat Discontinued Medications Sodium Chloride (Normal Saline 0.9%) 1,000 mls @ 1,000 mls/hr IV BOLUS ONE Stop: 09/19/22 04:50 Last Infusion: 09/19/22 05:25 Dose: Infused Ondansetron HCl (Ondansetron 4 Mg/2 Ml Inj) 4 mg IV NOW ONE Stop: 09/19/22 03:52 Last Admin: 09/19/22 04:13 Dose: 4 mg Vital Signs Vital signs: Vital Signs - 8 hr 09/19/22 03:35 09/19/22 04:28 09/19/22 04:30 Temperature 98.2 F Pulse Rate 88 91 H 88 Respiratory Rate 20 Blood Pressure 139/75 Pulse Oximetry 97 98 97 Oxygen Delivery Method Room Air Room Air 09/19/22 05:00 09/19/22 05:19 09/19/22 05:19 Temperature Pulse Rate 84 89 Respiratory Rate Blood Pressure 132/77 Pulse Oximetry 97 98 Oxygen Delivery Method Room Air Medical Decision Making Medical Records Medical records reviewed: Yes I reviewed the patient's medical records. Lab Data Lab results reviewed: Yes I reviewed the patient's lab results. Result diagrams: 09/19/22 04:00 09/19/22 04:00 Labs: Lab Results 09/19/22 09/19/22 Range/Units 04:00 04:00 WBC 7.3 (4.5-11.0) X10^3/uL RBC 4.71 (4.0-5.2) X10^6/uL Hgb 14.4 (12.0-16.0) g/dL Hct 43.0 (36-46) % MCV 91.4 (80-100) fL MCH 30.6 (26-34) PG MCHC 33.5 (30-36) % RDW 15.1 H (11.6-14.8) % Plt Count 169 (150-400) X10^3/uL Neut % (Auto) 75.2 H (50-75) % Lymph % (Auto) 14.3 L (25-40) % [place] % (Auto) 8.1 (3-14) % Eos % (Auto) 1.7 L (2-4) % Baso % (Auto) 0.7 (0-2) % Neut # (Auto) 5500 (3043-6157) /uL Lymph # (Auto) 1000 L (6887-6262) /uL [place] # (Auto) 600 (0-900) /uL Eos # (Auto) 100 (0-450) /uL Baso # (Auto) 0 (0-100) /uL Sodium 140 (137-145) mmol/L Potassium 4.1 (3.4-5.1) mmol/L Chloride 106 (98-107) mmol/L Carbon Dioxide 26 (22-32) mmol/L BUN 11 (7-17) mg/dL Creatinine 0.77 (0.52-1.04) mg/dL Estimated GFR > 60 (>60) mL/min BUN/Creatinine Ratio 14.3 (6-22) Glucose 134 H (80-110) mg/dL Calcium 8.9 (8.4-10.2) mg/dL Total Bilirubin 0.9 (0.2-1.3) mg/dL AST 32 (14-36) IU/L ALT 24 (<35) IU/L Alkaline Phosphatase 107 (38-126) U/L Total Protein 7.8 (6.3-8.2) g/dL Albumin 4.3 (3.5-5.0) g/dL Globulin 3.5 (1.7-4.1) g/dL Albumin/Globulin Ratio 1.2 (1.0-2.8) Lipase 80 (23-300) U/L Imaging Data CT scan - abdomen/pelvis: Radiologist's Impression: No signs of obstruction, no acute pathology. [facility] Narrative Medical decision making narrative: Patient says she feels much better after the IV nausea medication. Abdominal pain has improved/resolved. Findings on the CT scan today the patient knew about. She is had CT scans since the last comparison at an outside facility. She knows about the findings on the left lobe of the liver. Will discharge home with a 2nd nausea medication that she can try if needed. Have her follow-up with her surgeon as already scheduled. She was given return precautions. She expressed understanding and agreement. Discharge Plan Departure Patient Disposition: Home Clinical Impression: Nausea, Abdominal pain Instructions: DI for Nausea -- Adult Activity Restrictions/Additional Instructions: Continue to take all of your medications as directed. Keep all of your scheduled medical appointments. Return to the emergency department for any new or worsening symptoms. Prescriptions: New promethazine 25 mg tablet 25 mg PO Q6H PRN (Reason: nausea and vomiting) Qty: 10 0RF No Action diltiazem HCl 180 mg capsule,extended release 24hr 180 mg PO DAILY Eliquis 5 mg tablet 5 mg PO BID Qty: 180 1RF L-Threonine Crystals 1 ea MISCELLANEOUS DAILY zinc 10 mg Tablet 10 mg PO DAILY cholecalciferol (vitamin D3) [Vitamin D3] 25 mcg (1,000 unit) Tablet,Chewable 25 mcg PO DAILY flaxseed 1,000 mg Capsule 1,000 mg PO DAILY vitamin B complex [B Complex] Capsule 1 cap DAILY omeprazole magnesium [Prilosec OTC] 20 mg Tablet,Delayed Release (Dr/Ec) 20 mg PO DAILY loperamide [Imodium] 2 mg Capsule 2 mg PRN PRN (Reason: Diarrhea) lorazepam 1 mg Tablet 1 mg PO PRN PRN (Reason: Anxiety) Qty: 20 0RF acetaminophen [Tylenol] 325 mg Capsule 650 mg PO Q4H PRN (Reason: Pain (Scale Score 4-6)) Referrals: Jesus Madsen DO [Primary Care Provider] - Stand Alone Forms: Patient Portal/API
--- NOTE | 2022-09-19 03:51 | DI.CT.S_ITS ---
PROCEDURE: CT ABDOMEN PELVIS W CON INDICATIONS: 77-year-old female with right upper quadrant pain and vomiting. History of metastatic disease and prior hepatic resections. TECHNIQUE: After the administration of intravenous contrast, axial sections acquired from the lung bases to the pubic symphysis. Coronal and sagittal reformats were performed. For radiation dose reduction, the following was used: automated exposure control, adjustment of mA and/or kV according to patient size. COMPARISON: [facility], CT, CT CHEST ABD PEL W CON, 10/03/2021, 12:07. [facility], CT, CT ABDOMEN PELVIS W CON, 04/16/2020, 9:33. FINDINGS: Lower thorax: The lung bases are clear. Heart size normal. No hiatal hernia. Liver: There is been interval resection of the right hepatic lobe. Postoperative surgical clips and simple appearing capsulated fluid consistent with seroma. There is now a 4.5 cm mass lesion in the left hepatic lobe, new from the prior exam Biliary system: No calcified cholelithiasis or pericholecystic inflammation. No intra or extrahepatic bile duct dilatation. Pancreas: Unremarkable without mass or inflammation evident. Spleen: Normal in size and density. Adrenals: Normal morphology and density. Reproductive system: Unremarkable as visualized. Urinary system: Normal renal size and attenuation. Bilateral simple appearing renal cysts present. No renal calculi, hydronephrosis, or solid mass present. Urinary bladder unremarkable. Gastrointestinal system: The bowel is unremarkable without evidence of bowel obstruction or inflammation. The stomach appears unremarkable. Multiple diverticula arise from the sigmoid colon without evidence of diverticulitis. Appendix: No findings to suggest acute appendicitis. Peritoneal spaces: No mesenteric or retroperitoneal adenopathy. No free air. No free fluid. Vasculature: Aortic atherosclerotic vascular calcification noted without evidence of aneurysm. Abdominal wall: Abdominal wall intact without evidence of ventral or inguinal hernias. Musculoskeletal: Normal bone mineralization. No acute fractures. IMPRESSION: 1. New left hepatic 4.5 cm mass lesion, consistent with neoplasm 2. Right hepatic lobe resection with surgical clips and probable postoperative seroma Note: Final report is concordant with preliminary interpretation by [employer] Approved by: Dez Wilkins M.D. on 09/19/2022 at 7:40
[2022-09-19 04:10] LABS: Add Manual Diff / Slide Review NO; Basophils Absolute Auto 0 /uL (0-100); Basophils Percent Auto 0.7 % (0-2); Eosinophils Absolute Auto 100 /uL (0-450); Eosinophils Percent Auto 1.7 % (2-4); Hemoglobin 14.4 g/dL (12.0-16.0); Lymphocytes Absolute Auto 1000 /uL (1100-4500); Lymphocytes Percent Auto 14.3 % (25-40); Mean Corpuscular HGB Conc 33.5 % (30-36); Mean Corpuscular Hemoglobin 30.6 PG (26-34); Mean Corpuscular Volume 91.4 fL (80-100); Monocytes Absolute Auto 600 /uL (0-900); Monocytes Percent Auto 8.1 % (3-14); Neutrophils Absolute Auto 5500 /uL (1500-7000); Neutrophils Percent Auto 75.2 % (50-75); Platelet Count 169 X10^3/uL (150-400); Red Blood Cell Count 4.71 X10^6/uL (4.0-5.2); Red Cell Distribution Width 15.1 % (11.6-14.8); White Blood Cell Count 7.3 X10^3/uL (4.5-11.0)
[2022-09-19] MEDS: ONDANSETRON 4 MG/2 ML INJ IV (04:13)
[2022-09-19] MEDS: SODIUM CHLORIDE 0.9% 1,000 ML 1000 ML IV (04:13)
[2022-09-19 04:21] LABS: Alanine Aminotransferase 24 IU/L (<35); Albumin 4.3 g/dL (3.5-5.0); Albumin Globulin Ratio 1.2 (1.0-2.8); Alkaline Phosphatase 107 U/L (38-126); Aspartate Aminotransferase 32 IU/L (14-36); BUN Creatinine Ratio 14.3 (6-22); Bilirubin Total 0.9 mg/dL (0.2-1.3); Blood Urea Nitrogen 11 mg/dL (7-17); Calcium 8.9 mg/dL (8.4-10.2); Carbon Dioxide 26 mmol/L (22-32); Chloride 106 mmol/L (98-107); Estimated Glomerular Filt Rate > 60 mL/min (>60); Globulin 3.5 g/dL (1.7-4.1); Glucose 134 mg/dL (80-110); HEMOLYSIS 15 (0-50); Lipase 80 U/L (23-300); Potassium 4.1 mmol/L (3.4-5.1); Sodium 140 mmol/L (137-145); Total Protein 7.8 g/dL (6.3-8.2)
--- NOTE | 2022-09-19 05:47 | PC.NURSE ---
Pt reports nausea has improved along with foul taste in her mouth
== END 2022-09-19 06:12 | disposition home or self-care (01) ==
PROVIDERS: Emergency Provider Emergency Medicine; PCP Family Medicine
DX: R10.10 Upper abdominal pain, unspecified (principal); R11.0 Nausea; Z79.01 Long term (current) use of anticoagulants; Z79.899 Other long term (current) drug therapy
CPT/HCPCS: 36415; 74177; 80053; 83690; 85025; 96361; 96374; 99284; J2405; Q9967

== ENCOUNTER 2022-11-05 16:33 | Emergency (ER) | payer MEDICARE, OTHER, SELFPAY ==
[2022-11-05 16:42] VITALS: BP 136/79; PULSE 75; RESP 19; TEMP 36.4; O2SAT 99; BMI 30.4
--- NOTE | 2022-11-05 16:43 | DI.CT.S_ITS ---
PROCEDURE: CT CHEST ABD PEL W CON INDICATIONS: fall down stairs, trauma, eliquis TECHNIQUE: After the administration of intravenous contrast, 5 mm thick sections acquired from the lung apices to the symphysis. 5 mm coronal and sagittal reformats were performed, with additional 7 mm MIP reformats through the lungs. For radiation dose reduction, the following was used: automated exposure control, adjustment of mA and/or kV according to patient size. COMPARISON: [facility], CT, CT CHEST ABD PEL W CON, 10/03/2021, 12:07. FINDINGS: Image quality: Good Lungs and pleura: No dense consolidation. No pleural effusions or hemothorax. No pneumothorax. No new or enlarging pulmonary nodules. Few small nodules are stable. Mediastinum, heart, and esophagus: Nonspecific distal esophageal wall thickening and possible small hiatal hernia, also seen previously. Overall heart size is normal. Stable prominent right hilar lymph node. No mediastinal hematoma identified. Chest wall and thyroid: Thyroid is unremarkable. Chest wall unremarkable. Solid organs: Status post partial hepatectomy. Probably increased size of left lobe mass compared to September 2022, not well delineated on this study, measuring about 5.7 x 5.6 cm (101/65). Postsurgical fluid along the right resection margin, similar to prior. No hepatic laceration identified. No pathologic dilation of the biliary system or pancreatic duct. No splenomegaly. Subcentimeter lesions are too small to characterize. There are renal cysts. No hydronephrosis. Left adrenal gland is unremarkable. There is similar thickening. Vessels and lymph nodes: No abdominal aortic aneurysm or pathologic adenopathy by size criteria. The main portal vein is patent. Bowel and peritoneum: No evidence of small bowel obstruction. No hemoperitoneum. A bowel containing right spigelian hernia again seen. Chronic diverticular disease of the sigmoid with wall thickening, also seen previously, correlate with history of any age-appropriate colonoscopy results. Body wall: Unremarkable Pelvis: Similar appearance of the reproductive organs, not well evaluated on CT. Bladder is under distended. Bones: Similar small sclerotic lesions of the right iliac bone and T11. There are degenerative changes. No acute changes compared to prior. IMPRESSION: No direct evidence of traumatic injury in the chest, abdomen, or pelvis. The liver mass may be slightly enlarged. There also indeterminate small bone lesions. Please consider dedicated oncologic imaging for further evaluation of known malignancy. Other findings as above. Dictated by: Hernando Willson M.D. on 11/05/2022 at 17:18 Approved by: Hernando Willson M.D. on 11/05/2022 at 17:28
--- NOTE | 2022-11-05 16:43 | DI.CT.S_ITS ---
PROCEDURE: CT CERVICAL SPINE WO CON INDICATIONS: fall down stairs, trauma, eliquis TECHNIQUE: Noncontrast 3 mm thick sections acquired from the skull base to the T4 level. Sagittal and coronal reformats were then constructed. For radiation dose reduction, the following was used: automated exposure control, adjustment of mA and/or kV according to patient size. COMPARISON: [facility], CT, CT CHEST ABD PEL W CON, 11/05/2022, 16:43. [facility], CT, CT HEAD/BRAIN WO CON, 11/05/2022, 16:43. FINDINGS: Image quality: This examination is somewhat limited by quantum mottle artifact. Bones: No fractures or dislocations. Visualized superior ribs are intact. Focal degenerative change is seen involving the C1-C2 interface anteriorly. There is mild disc space narrowing seen at C4-C5, with at least moderate disc space narrowing at C5-C6, with directed endplate osteophytes seen at this level. Milder degenerative changes are seen elsewhere. Soft tissues: Prevertebral soft tissues are normal in thickness. No paravertebral hematomas. No apical pneumothoraces. IMPRESSION: Negative for acute fracture. Cervical spine degenerative changes are seen, which are worst at C5-C6. Dictated by: Hansel Conner M.D. on 11/05/2022 at 16:52 Approved by: Hansel Conner M.D. on 11/05/2022 at 16:53
--- NOTE | 2022-11-05 16:43 | DI.CT.S_ITS ---
PROCEDURE: CT HEAD/BRAIN WO CON INDICATIONS: fall down stairs, trauma, eliquis TECHNIQUE: Noncontrast 4.5 mm thick angled axial sections acquired from the foramen magnum to the vertex, with coronal and sagittal reformats. For radiation dose reduction, the following was used: automated exposure control, adjustment of mA and/or kV according to patient size. COMPARISON: [facility], CT, CT CHEST ABD PEL W CON, 11/05/2022, 16:43. [facility], CT, CT CERVICAL SPINE WO CON, 11/05/2022, 16:43. FINDINGS: Image quality: Mild streak artifact can be seen through the skull base. CSF spaces: Basal cisterns are patent. No extra-axial fluid collections. The ventricles are symmetric in size and shape. Brain: No intracranial bleeds or masses. There is cerebral volume loss for age, with resultant ventricular and sulcal prominence. There are periventricular and deep white matter chronic small vessel ischemic changes. There is intracranial internal carotid artery atherosclerosis. Skull and face: Calvarium and visualized facial bones appear intact, without suspicious lesions. Sinuses: Visualized sinuses and mastoids are clear. IMPRESSION: Limited intracranial study, without findings of acute intracranial hemorrhage. Dictated by: Hansel Conner M.D. on 11/05/2022 at 16:50 Approved by: Hansel Conner M.D. on 11/05/2022 at 16:51
[2022-11-05 16:54] LABS: INR 1.1 (0.9-1.3); Prothrombin Time 13.1 SECONDS (10.1-12.7)
[2022-11-05 17:00] LABS: Alanine Aminotransferase 29 IU/L (<35); Albumin Globulin Ratio 1.2 (1.0-2.8); Alkaline Phosphatase 111 U/L (38-126); Aspartate Aminotransferase 39 IU/L (14-36); BUN Creatinine Ratio 19.4 (6-22); Bilirubin Total 0.7 mg/dL (0.2-1.3); Blood Urea Nitrogen 12 mg/dL (7-17); Calcium 8.9 mg/dL (8.4-10.2); Carbon Dioxide 25 mmol/L (22-32); Chloride 107 mmol/L (98-107); Estimated Glomerular Filt Rate > 60 mL/min (>60); Globulin 3.3 g/dL (1.7-4.1); Glucose 121 mg/dL (80-110); HEMOLYSIS 41 (0-50); Potassium 3.8 mmol/L (3.4-5.1); Sodium 137 mmol/L (137-145); Total Protein 7.3 g/dL (6.3-8.2)
[2022-11-05 17:04] LABS: Add Manual Diff / Slide Review NO; Basophils Absolute Auto 0 /uL (0-100); Basophils Percent Auto 0.4 % (0-2); Eosinophils Absolute Auto 100 /uL (0-450); Eosinophils Percent Auto 1.2 % (2-4); Hematocrit 42.2 % (36-46); Hemoglobin 13.7 g/dL (12.0-16.0); Lymphocytes Absolute Auto 1300 /uL (1100-4500); Lymphocytes Percent Auto 13.5 % (25-40); Mean Corpuscular HGB Conc 32.5 % (30-36); Mean Corpuscular Hemoglobin 29.9 PG (26-34); Mean Corpuscular Volume 92.1 fL (80-100); Monocytes Absolute Auto 900 /uL (0-900); Neutrophils Absolute Auto 7100 /uL (1500-7000); Neutrophils Percent Auto 75.9 % (50-75); Platelet Count 177 X10^3/uL (150-400); Red Blood Cell Count 4.58 X10^6/uL (4.0-5.2); Red Cell Distribution Width 14.6 % (11.6-14.8); White Blood Cell Count 9.4 X10^3/uL (4.5-11.0)
[2022-11-05 18:00] VITALS: PULSE 90; RESP 24; O2SAT 97
--- NOTE | 2022-11-05 18:10 | ED.FALL ---
HPI - Fall General Chief Complaint: Fall Stated Complaint: GLF, concussion + blood thinners Time Seen by Provider: 11/05/22 16:40 Source: patient and EMS Mode of arrival: EMS History of Present Illness HPI Narrative: 77-year-old female nonsmoker with history of AFib on Eliquis presents by EMS for evaluation of fall with head injury. She states that she was backing down the stairs and fell backwards down 2 stairs and struck her head and has minor skin tears to her arms but largely denies any neck or back pain. She denies any extremity pain. She denies chest pain or shortness of breath. She is nauseated but has full recall of the event. She denies any blurred vision, trouble speech or extremity weakness. She is activated as a modified trauma given fall with head injury on anticoagulation Related Data Home Medications Medication Instructions Recorded Confirmed threonine (bulk) (L-Threonine 1 ea miscellaneous DAILY 04/15/20 09/24/22 crystals) cholecalciferol (vitamin D3) 25 25 mcg PO DAILY 08/01/20 09/24/22 mcg (1,000 unit) chewable tablet (Vitamin D3) zinc 10 mg tablet 10 mg PO DAILY 08/01/20 09/24/22 vitamin B complex 1 cap DAILY 01/02/21 09/24/22 omeprazole magnesium 20 mg 20 mg PO DAILY 03/13/21 09/24/22 tablet,delayed release (Prilosec OTC) loperamide 2 mg capsule 2 mg PRN PRN Diarrhea 07/03/21 09/24/22 diltiazem HCl 180 mg 180 mg PO DAILY 02/16/22 09/24/22 capsule,extended release 24 hr acetaminophen 325 mg capsule 650 mg PO Q4H PRN Pain (Scale 03/19/22 09/24/22 (Tylenol) Score 4-6) Previous Rx's Medication Instructions Recorded apixaban 5 mg tablet (Eliquis) 5 mg PO BID #180 tabs 01/05/19 lorazepam 1 mg tablet 1 mg PO PRN PRN Anxiety #20 tabs 07/03/21 promethazine 25 mg tablet 25 mg PO Q6H PRN nausea and 09/19/22 vomiting #10 tabs ondansetron 4 mg disintegrating 4 mg PO TID-QID PRN nausea and 11/05/22 tablet vomiting #20 tabs Allergies Allergy/AdvReac Type Severity Reaction Status Date / Time Sulfa (Sulfonamide Allergy Mild rash, Verified 02/16/22 12:46 Antibiotics) strawberry patches doxycycline AdvReac Intermediate Blisters Verified 02/16/22 12:46 in mouth and itchy skin rosuvastatin AdvReac Mild diffuse Verified 02/16/22 12:46 muscle and joint pain Review of Systems Review of Systems Narrative: GENERAL: Denies chills, fatigue, malaise, fever, sweats. HEENT: Denies sinus pain, ear pain, sore throat, difficulty swallowing, dizziness. RESPIRATORY: Denies dyspnea, cough, wheezing, hemoptysis, sputum. CARDIOVASCULAR: Denies chest pain, palpitations, orthopnea, edema, GASTROINTESTINAL: Denies nausea, vomiting, abdominal pain, diarrhea, constipation, melena. : Denies dysuria, frequency, incontinence, hematuria, urinary retention. MUSCULOSKELETAL: denies weakness, joint pain, or bony pain SKIN: Denies rash, skin lesions, or other NEUROLOGIC: Denies weakness, headache, numbness, change in speech, confusion, seizures, incoordination. PSYCHIATRIC: No concerning psychosocial issues. 12 point review of systems is negative except for those stated above Patient History Medical History Atrial fibrillation Chicken pox Claustrophobia Hepatitis A (~1973) Hyperlipidemia Liver masses Measles Mumps Neuroendocrine carcinoma metastatic to liver Physician orders for life-sustaining treatment (POLST) form indicates patient wish for [id number] status Rubella UTI (urinary tract infection) Surgical History Anesthesia History of removal of cyst (~1969) History of tubal ligation (~1972) Family History Father Congestive heart failure Grandfather Stomach cancer Grandmother Multiple myeloma Social History household members: family Smoking Status: Never smoker second hand exposure: No alcohol intake: never substance use type: does not use Smoking Status: Never smoker alcohol intake frequency: holidays/special occasions only Substance Use Type: does not use Exam Narrative Exam Narrative: GENERAL: [77] year old patient appears stated age. Well-developed patient, in mild distress. GCS 15 HEAD: Small palpable hematoma in the occiput without evidence of depressed skull fracture EYES: Pupils equal round and reactive. No hyphema Extraocular motions intact. No scleral icterus. No injection or drainage. ENT: Nose without bleeding, purulent drainage. Throat without erythema, tonsillar hypertrophy or exudate. Airway patent. NECK: Trachea midline. Non tender CARDIOVASCULAR: Regular rate and rhythm without murmurs, gallops, or rubs. RESPIRATORY: Clear to auscultation. Breath sounds equal bilaterally. No wheezes, rales, or rhonchi. GASTROINTESTINAL: Abdomen soft, non-tender, nondistended. EXTREMITIES: No edema or joint tenderness. BACK: Nontender without deformity or crepitance. No flank tenderness. NEURO: AOx3. SKIN: No rash or erythema of visible areas few superficial skin tears bilateral upper extremities Initial Vital Signs Initial Vital Signs: Vital Signs Temperature 97.5 F L 11/05/22 16:42 Pulse Rate 75 11/05/22 16:42 Respiratory Rate 19 11/05/22 16:42 Blood Pressure 136/79 11/05/22 16:42 Pulse Oximetry 99 11/05/22 16:42 Oxygen Delivery Method 11/05/22 16:42 Course Orders Ordered: ED Orders 11/05/22 16:40 Complete Blood Count AUTO DIFF Stat Comprehensive Metabolic Panel Stat Magnesium Stat Prothrombin Time INR Stat 11/05/22 16:43 CT cervical spine wo con Stat CT chest abd pel w con Stat CT head/brain wo con Stat Vital Signs Vital signs: Vital Signs - 8 hr 11/05/22 16:42 11/05/22 18:00 11/05/22 18:58 Temperature 97.5 F L Pulse Rate 75 90 98 H Respiratory Rate 19 24 18 Blood Pressure 136/79 148/95 H Pulse Oximetry 99 97 98 Oxygen Delivery Method Room Air Room Air 11/05/22 18:30 11/05/22 18:55 11/05/22 18:55 Temperature Pulse Rate 83 85 Respiratory Rate 16 20 Blood Pressure 148/95 H Pulse Oximetry 98 95 Oxygen Delivery Method MDM - Fall Lab Data 11/05/22 16:40 11/05/22 16:40 Labs: Lab Results 11/05/22 11/05/22 11/05/22 Range/Units 16:40 16:40 16:40 WBC 9.4 (4.5-11.0) X10^3/uL RBC 4.58 (4.0-5.2) X10^6/uL Hgb 13.7 (12.0-16.0) g/dL Hct 42.2 (36-46) % MCV 92.1 (80-100) fL MCH 29.9 (26-34) PG MCHC 32.5 (30-36) % RDW 14.6 (11.6-14.8) % Plt Count 177 (150-400) X10^3/uL Neut % (Auto) 75.9 H (50-75) % Lymph % (Auto) 13.5 L (25-40) % [place] % (Auto) 9.0 (3-14) % Eos % (Auto) 1.2 L (2-4) % Baso % (Auto) 0.4 (0-2) % Neut # (Auto) 7100 H (8448-2140) /uL Lymph # (Auto) 1300 (8465-2896) /uL [place] # (Auto) 900 (0-900) /uL Eos # (Auto) 100 (0-450) /uL Baso # (Auto) 0 (0-100) /uL PT 13.1 H (10.1-12.7) SECONDS INR 1.1 (0.9-1.3) Sodium 137 (137-145) mmol/L Potassium 3.8 (3.4-5.1) mmol/L Chloride 107 (98-107) mmol/L Carbon Dioxide 25 (22-32) mmol/L BUN 12 (7-17) mg/dL Creatinine 0.62 (0.52-1.04) mg/dL Estimated GFR > 60 (>60) mL/min BUN/Creatinine Ratio 19.4 (6-22) Glucose 121 H (80-110) mg/dL Calcium 8.9 (8.4-10.2) mg/dL Magnesium 2.0 (1.6-2.3) mg/dL Total Bilirubin 0.7 (0.2-1.3) mg/dL AST 39 H (14-36) IU/L ALT 29 (<35) IU/L Alkaline Phosphatase 111 (38-126) U/L Total Protein 7.3 (6.3-8.2) g/dL Albumin 4.0 (3.5-5.0) g/dL Globulin 3.3 (1.7-4.1) g/dL Albumin/Globulin Ratio 1.2 (1.0-2.8) Urine Dip Bedside Urine Glucose Negative Bedside Urine Bilirubin - Negative Bedside Urine Ketone - Negative Urine Specific [place] 1.015 Bedside Urine Occult Blood - Negative Bedside Urine pH 6.0 Bedside Urine Protein - Negative Bedside Urine Urobilinogen - Negative Bedside Urine Nitrite - Negative Bedside Urine Leukocytes - Negative Esterase MDM Narrative Medical decision making narrative: [77-year-old female anticoagulated with minor injuries as a consequence of fall] Multiple etiologies for patient's symptoms considered including, but not limited to: [Contusions, hematoma, subdural hematoma, cervical fracture versus other] Prior Charts reviewed: Prior notes reviewed Labs reviewed and interpreted by myself: No significant abnormal findings Imaging reviewed: Head, C-spine, chest abdomen pelvis without intracranial, intrathoracic or intra-abdominal bleeding, no fractures Patient's symptoms improved over duration of stay with above-stated therapies. She is ambulatory without any significant symptoms, she does have some subtle dizziness and mild nausea but is tolerating orals. Consistent with mild concussion Findings and discharge diagnosis discussed with patient/family followed by verbalization of understanding Return precautions discussed with patient/family whom verbalize understanding of diagnosis and plan Discharge Plan Departure Patient Disposition: Home Clinical Impression: Concussion Instructions: DI for Concussion, How to Prevent Falls Activity Restrictions/Additional Instructions: *You have been diagnosed with [fall with minor injuries including concussion. As we discussed your imaging is very reassuring and there is no evidence of any fracture or abnormal bleeding] *What to do: *Please continue to take your regular medications as directed. [x ] New medication prescriptions sent to your pharmacy: [[facility]] [ ] New medication written as a paper prescription [ ] No new medications given You have a slight concussion and will likely have a mild headache and some nausea for a few days. Avoiding highly stimulating activities and even TV or computers may be helpful in minimizing your symptoms. Avoid activities that will put you at risk for another head injury for at least a week. You can take tylenol or motrin for headache or the prescription provided for nausea/vomiting. Return for worsening or persistent symptoms *Please follow up with your primary care provider in 2-3 days, call for an appointment. Let them know you were seen in the Emergency Department and that we ask that you be seen in follow up. We will electronically transmit a record of today's note if your PCP is in our system Prescriptions: New ondansetron 4 mg tablet,disintegrating 4 mg PO TID-QID PRN (Reason: nausea and vomiting) Qty: 20 0RF No Action diltiazem HCl 180 mg capsule,extended release 24hr 180 mg PO DAILY Eliquis 5 mg tablet 5 mg PO BID Qty: 180 1RF promethazine 25 mg tablet 25 mg PO Q6H PRN (Reason: nausea and vomiting) Qty: 10 0RF L-Threonine Crystals 1 ea MISCELLANEOUS DAILY zinc 10 mg Tablet 10 mg PO DAILY cholecalciferol (vitamin D3) [Vitamin D3] 25 mcg (1,000 unit) Tablet,Chewable 25 mcg PO DAILY vitamin B complex [B Complex] Capsule 1 cap DAILY omeprazole magnesium [Prilosec OTC] 20 mg Tablet,Delayed Release (Dr/Ec) 20 mg PO DAILY loperamide [Imodium] 2 mg Capsule 2 mg PRN PRN (Reason: Diarrhea) lorazepam 1 mg Tablet 1 mg PO PRN PRN (Reason: Anxiety) Qty: 20 0RF acetaminophen [Tylenol] 325 mg Capsule 650 mg PO Q4H PRN (Reason: Pain (Scale Score 4-6)) Referrals: Jesus Madsen DO [Primary Care Provider] - Stand Alone Forms: Patient Portal/API
--- NOTE | 2022-11-05 18:17 | PC.NURSE ---
Pt reports feeling dizzy motion sick with change of position in bed, primarily when sitting upright from a laying position. Hematoma observed on the back of the head, no obvious sign of blood or lac in the area. Physician advised.
[2022-11-05 18:30] VITALS: PULSE 83; RESP 16; O2SAT 98
[2022-11-05 18:55] VITALS: BP 148/95; PULSE 85; RESP 20; O2SAT 95
[2022-11-05 18:58] VITALS: BP 148/95; PULSE 98; RESP 18; O2SAT 98
--- NOTE | 2022-11-05 19:28 | PC.NURSE ---
Pt passed ambulation trial. Physician at the bedside. REAP book and head injury education given.
== END 2022-11-05 19:29 | disposition home or self-care (01) ==
PROVIDERS: Emergency Provider Emergency Medicine; PCP Family Medicine
DX: S06.0X0A Concussion without loss of consciousness, initial encounter (principal); R11.0 Nausea; I48.91 Unspecified atrial fibrillation; Z79.01 Long term (current) use of anticoagulants; W18.30XA Fall on same level, unspecified, initial encounter
CPT/HCPCS: 70450; 71260; 72125; 74177; 80053; 81003; 83735; 85025; 85610; 99283; 99284

== ENCOUNTER → 2022-12-16 11:46 | Outpatient (CLI) | payer MEDICARE, OTHER, SELFPAY | PROVIDERS: PCP Family Medicine; Referring Provider Family Medicine; Visit Provider Family Medicine | DX: R19.7 Diarrhea, unspecified (principal) | CPT/HCPCS: 87045; 87899 ==

== ENCOUNTER 2023-01-03 10:15 | Emergency (ER) | payer MEDICARE, OTHER, SELFPAY ==
[2023-01-03] VITALS (20 sets, daily range): BP systolic 99–131; BP diastolic 56–72; PULSE 68–104; RESP 16–23; TEMP 36.4; O2SAT 94–98; BMI 29.6
--- NOTE | 2023-01-03 10:47 | ED.NAVMDI ---
HPI - Nausea/Vomiting/Diarrhea General Chief complaint: Nausea/Vomiting/Diarrhea Stated complaint: nausea, diarrhea Time Seen by Provider: 01/03/23 10:32 History of Present Illness HPI Narrative: Patient is a 77-year-old female history atrial fibrillation on Eliquis, hyperlipidemia, metastatic neuroendocrine carcinoma presenting today with generalized fatigue. She is concerned that she is hypokalemia. She reports that she is had diarrhea ongoing since October since she had surgery. She tries to stay hydrated. She had labs drawn the beginning of the month the potassium of 2.6 she had infusion and it was replaced and rechecked the next day was 3.1. She says that she is not able to take oral potassium chloride she has been nauseous and Oncology was afraid it might make her more nauseous. She denies any significant pain or fever. No chills. She denies any chest pain shortness of breath dizziness lightheadedness or other symptoms. She generally does not feel well. She received octreotide injections last injection was December 17. Related Data Home Medications Medication Instructions Recorded Confirmed threonine (bulk) (L-Threonine 1 ea miscellaneous DAILY 04/15/20 12/17/22 crystals) zinc 10 mg tablet 10 mg PO DAILY 08/01/20 12/17/22 omeprazole magnesium 20 mg 20 mg PO DAILY 03/13/21 12/17/22 tablet,delayed release (Prilosec OTC) loperamide 2 mg capsule 2 mg PRN PRN Diarrhea 07/03/21 12/17/22 diltiazem HCl 180 mg 180 mg PO DAILY 02/16/22 12/17/22 capsule,extended release 24 hr acetaminophen 325 mg capsule 650 mg PO Q4H PRN Pain (Scale 03/19/22 12/17/22 (Tylenol) Score 4-6) Previous Rx's Medication Instructions Recorded apixaban 5 mg tablet (Eliquis) 5 mg PO BID #180 tabs 01/05/19 lorazepam 1 mg tablet 1 mg PO PRN PRN Anxiety #20 tabs 07/03/21 promethazine 25 mg tablet 25 mg PO Q6H PRN nausea and 09/19/22 vomiting #10 tabs ondansetron 4 mg disintegrating 4 mg PO TID-QID PRN nausea and 11/05/22 tablet vomiting #20 tabs Allergies Allergy/AdvReac Type Severity Reaction Status Date / Time Sulfa (Sulfonamide Allergy Mild rash, Verified 11/12/22 13:30 Antibiotics) strawberry patches doxycycline AdvReac Intermediate Blisters Verified 11/12/22 13:30 in mouth and itchy skin rosuvastatin AdvReac Mild diffuse Verified 11/12/22 13:30 muscle and joint pain Review of Systems Review of Systems ROS Unobtainable: All systems reviewed & are unremarkable except as noted in HPI and below Patient History Medical History Atrial fibrillation Cervical somatic dysfunction Chicken pox Claustrophobia Cranial somatic dysfunction Hepatitis A (~1973) Hyperlipidemia Liver masses Measles Mumps Neuroendocrine carcinoma metastatic to liver Physician orders for life-sustaining treatment (POLST) form indicates patient wish for [id number] status Rubella UTI (urinary tract infection) Surgical History Anesthesia History of removal of cyst (~1969) History of tubal ligation (~1972) Family History Father Congestive heart failure Grandfather Stomach cancer Grandmother Multiple myeloma Social History household members: family Smoking Status: Never smoker second hand exposure: No alcohol intake: never substance use type: does not use Smoking Status: Never smoker alcohol intake frequency: holidays/special occasions only Substance Use Type: does not use Exam Initial Vital Signs Initial Vital Signs: Vital Signs Pulse Rate 90 01/03/23 10:28 Pulse Oximetry 98 01/03/23 10:28 GENERAL: Alert pleasant 77-year-old female and in no acute distress. HEENT: Head atraumatic,EOMI, pupils reactive, face symmetric, moist mucous membranes CARDIOVASCULAR: Regular rate and rhythm without murmurs, rubs or gallops. RESPIRATORY: Breath sounds equal bilaterally, no wheezes rales or rhonchi. ABDOMEN: Soft, nontender. Normoactive bowel sounds all 4 quadrants. No guarding or rebound. EXTREMITIES: Normal range of motion, no clubbing or edema. Neurovascularly intact NEUROLOGICAL: Alert and oriented x4.Normal gait and speech. Product Technician strength equal bilaterally SKIN: Warm, dry, no laceration, no petechiae, no rashes or lesions. Course Orders Ordered: ED Orders 01/03/23 10:35 EKG-12 Lead Stat 01/03/23 10:50 Complete Blood Count AUTO DIFF Stat Comprehensive Metabolic Panel Stat Lactate (Lactic Acid) Stat Lipase Stat 01/03/23 10:58 Procalcitonin Stat 01/03/23 11:50 Blood Culture Stat 01/03/23 13:02 Urine Culture Stat Urine Microscopic Stat Discontinued Medications Sodium Chloride (Normal Saline 0.9%) 1,000 mls @ 150 mls/hr IV CONT GIOVANNI Last Infusion: 01/03/23 13:00 Dose: 0 mls/hr Documented By: Admin: 01/03/23 11:09 Dose: 150 mls/hr Documented By: MARTA Potassium Chloride (Potassium Chloride 20 Meq Tab) 20 meq PO NOW ONE Stop: 01/03/23 13:06 Last Admin: 01/03/23 13:37 Dose: 20 meq Documented By: MARTA Vital Signs Vital signs: Vital Signs - 8 hr 01/03/23 11:00 01/03/23 11:00 01/03/23 11:14 Pulse Rate 85 85 Respiratory Rate 18 19 Blood Pressure 99/56 L Pulse Oximetry 94 98 01/03/23 11:14 01/03/23 11:30 01/03/23 11:30 Pulse Rate 83 Respiratory Rate 17 Blood Pressure 119/56 L 104/56 L Pulse Oximetry 94 01/03/23 12:00 01/03/23 12:00 01/03/23 12:10 Pulse Rate 75 85 Respiratory Rate 21 23 Blood Pressure 100/59 L Pulse Oximetry 96 96 01/03/23 12:10 01/03/23 12:15 01/03/23 12:15 Pulse Rate 82 Respiratory Rate 22 Blood Pressure 102/56 L 123/72 Pulse Oximetry 96 01/03/23 12:30 01/03/23 12:30 01/03/23 12:45 Pulse Rate 73 74 Respiratory Rate 23 18 Blood Pressure 110/59 L Pulse Oximetry 97 97 01/03/23 12:45 01/03/23 13:00 01/03/23 13:00 Pulse Rate 68 Respiratory Rate 18 Blood Pressure 100/59 L 104/57 L Pulse Oximetry 97 01/03/23 13:32 01/03/23 13:33 01/03/23 13:33 Pulse Rate 78 72 Respiratory Rate 22 19 Blood Pressure 108/56 L Pulse Oximetry 98 01/03/23 13:45 01/03/23 13:45 01/03/23 14:00 Pulse Rate 69 Respiratory Rate 23 Blood Pressure 103/59 L 107/57 L Pulse Oximetry 97 01/03/23 14:00 01/03/23 14:15 01/03/23 14:15 Pulse Rate 70 73 Respiratory Rate 21 23 Blood Pressure 105/60 Pulse Oximetry 97 96 01/03/23 14:30 01/03/23 14:30 Pulse Rate 74 Respiratory Rate 23 Blood Pressure 114/58 L Pulse Oximetry 97 MDM - Nausea/Vomiting/Diarrhea Lab Data 01/03/23 10:50 01/03/23 10:50 Labs: Lab Results 01/03/23 01/03/23 01/03/23 Range/Units 10:50 10:50 10:50 WBC 6.8 (4.5-11.0) X10^3/uL RBC 4.23 (4.0-5.2) X10^6/uL Hgb 12.8 (12.0-16.0) g/dL Hct 38.5 (36-46) % MCV 91.1 (80-100) fL MCH 30.4 (26-34) PG MCHC 33.3 (30-36) % RDW 14.6 (11.6-14.8) % Plt Count 219 (150-400) X10^3/uL Neut % (Auto) 67.4 (50-75) % Lymph % (Auto) 20.3 L (25-40) % [place] % (Auto) 8.9 (3-14) % Eos % (Auto) 2.7 (2-4) % Baso % (Auto) 0.7 (0-2) % Neut # (Auto) 4600 (5746-6046) /uL Lymph # (Auto) 1400 (0817-3762) /uL [place] # (Auto) 600 (0-900) /uL Eos # (Auto) 200 (0-450) /uL Baso # (Auto) 100 (0-100) /uL Sodium 137 (137-145) mmol/L Potassium 3.2 L (3.4-5.1) mmol/L Chloride 105 (98-107) mmol/L Carbon Dioxide 23 (22-32) mmol/L BUN 13 (7-17) mg/dL Creatinine 0.76 (0.52-1.04) mg/dL Estimated GFR > 60 (>60) mL/min BUN/Creatinine Ratio 17.1 (6-22) Glucose 137 H (80-110) mg/dL Lactate 3.1 H (0.7-2.1) mmol/L Calcium 9.2 (8.4-10.2) mg/dL Total Bilirubin 0.8 (0.2-1.3) mg/dL AST 34 (14-36) IU/L ALT 33 (<35) IU/L Alkaline Phosphatase 101 (38-126) U/L Total Protein 6.9 (6.3-8.2) g/dL Albumin 3.9 (3.5-5.0) g/dL Globulin 3.0 (1.7-4.1) g/dL Albumin/Globulin Ratio 1.3 (1.0-2.8) Lipase 105 (23-300) U/L Procalcitonin (<0.5) ng/mL Urine RBC (0-5/HPF) Urine WBC (0-5/HPF) Ur Squamous Epith Cells (0-5/HPF) Calcium Oxalate Crystal Urine Bacteria (None) Urine Mucus (Negative) Ur Culture Indicated? 01/03/23 01/03/23 01/03/23 Range/Units 10:58 12:56 13:02 WBC (4.5-11.0) X10^3/uL RBC (4.0-5.2) X10^6/uL Hgb (12.0-16.0) g/dL Hct (36-46) % MCV (80-100) fL MCH (26-34) PG MCHC (30-36) % RDW (11.6-14.8) % Plt Count (150-400) X10^3/uL Neut % (Auto) (50-75) % Lymph % (Auto) (25-40) % [place] % (Auto) (3-14) % Eos % (Auto) (2-4) % Baso % (Auto) (0-2) % Neut # (Auto) (9293-9435) /uL Lymph # (Auto) (6952-5642) /uL [place] # (Auto) (0-900) /uL Eos # (Auto) (0-450) /uL Baso # (Auto) (0-100) /uL Sodium (137-145) mmol/L Potassium (3.4-5.1) mmol/L Chloride (98-107) mmol/L Carbon Dioxide (22-32) mmol/L BUN (7-17) mg/dL Creatinine (0.52-1.04) mg/dL Estimated GFR (>60) mL/min BUN/Creatinine Ratio (6-22) Glucose (80-110) mg/dL Lactate 1.4 (0.7-2.1) mmol/L Calcium (8.4-10.2) mg/dL Total Bilirubin (0.2-1.3) mg/dL AST (14-36) IU/L ALT (<35) IU/L Alkaline Phosphatase (38-126) U/L Total Protein (6.3-8.2) g/dL Albumin (3.5-5.0) g/dL Globulin (1.7-4.1) g/dL Albumin/Globulin Ratio (1.0-2.8) Lipase (23-300) U/L Procalcitonin 0.04 (<0.5) ng/mL Urine RBC 0-1/hpf (0-5/HPF) Urine WBC 5-10/hpf H (0-5/HPF) Ur Squamous Epith Cells 1-5 /hpf (0-5/HPF) Calcium Oxalate Crystal Many H Urine Bacteria Moderate (10-30) H (None) Urine Mucus 1+ H (Negative) Ur Culture Indicated? Specimen cultured Urine Dip Bedside Urine Glucose Negative Bedside Urine Bilirubin - Negative Bedside Urine Ketone - Negative Urine Specific [place] 1.030 Bedside Urine Occult Blood - Negative Bedside Urine pH 6.0 Bedside Urine Protein + 30 Bedside Urine Urobilinogen - Negative Bedside Urine Nitrite - Negative Bedside Urine Leukocytes + 70 Esterase ECG Data Interpretation: Atrial fibrillation rate [address] depression in lead 2 similar to prior no ST elevations MDM Narrative Medical decision making narrative: Patient has multiple comorbidities including a neuro endocrine cancer currently being treated, AFib with Eliquis presents today with vague symptoms. Her potassium is actually found to be 3.2 other electrolytes do not show any significant abnormality no evidence of HENRY. Lactate is noted to be 3.1. Procalcitonin blood cultures are added procalcitonin 0.04 blood cultures pending. Urinalysis does show leukocytes with bacteria. She is no evidence of leukocytosis or fever. There is no indication of neutropenia. WBC count is 6.8. Patient had a recent infection of C diff. I think reasonable to hold off antibiotics until urine culture returns. Patient agrees with this She overall appears well. No evidence of severe sepsis. She is not hypotensive or tachycardic, vitals remained stable. Lactate improved with 1 L of fluid from 3.1-1.4. Discharge Plan Departure Patient Disposition: Home Clinical Impression: UTI (urinary tract infection) Instructions: DI for Urinary Tract Infection (UTI) Activity Restrictions/Additional Instructions: *You have been diagnosed with UTI *What to do: At this time your potassium is not significantly low. You are having some evidence of bladder infection, however based on your recent C diff infection I think reasonable to hold off waiting for culture. We should call you in the next 2-3 days if you do not hear from us please call the emergency department *Continue to take medications as directed *Follow up with your primary care provider in 2-3 days or call [phone] *Return to ER if you should have increasing confusion weakness fevers or any new, worsening or concerning symptoms Prescriptions: No Action diltiazem HCl 180 mg capsule,extended release 24hr 180 mg PO DAILY Eliquis 5 mg tablet 5 mg PO BID Qty: 180 1RF promethazine 25 mg tablet 25 mg PO Q6H PRN (Reason: nausea and vomiting) Qty: 10 0RF L-Threonine Crystals 1 ea MISCELLANEOUS DAILY zinc 10 mg Tablet 10 mg PO DAILY omeprazole magnesium [Prilosec OTC] 20 mg Tablet,Delayed Release (Dr/Ec) 20 mg PO DAILY loperamide [Imodium] 2 mg Capsule 2 mg PRN PRN (Reason: Diarrhea) lorazepam 1 mg Tablet 1 mg PO PRN PRN (Reason: Anxiety) Qty: 20 0RF acetaminophen [Tylenol] 325 mg Capsule 650 mg PO Q4H PRN (Reason: Pain (Scale Score 4-6)) ondansetron 4 mg tablet,disintegrating 4 mg PO TID-QID PRN (Reason: nausea and vomiting) Qty: 20 0RF Referrals: Jesus Madsen DO [Primary Care Provider] - Stand Alone Forms: Patient Portal/API
[2023-01-03 11:00] LABS: Add Manual Diff / Slide Review NO; Basophils Absolute Auto 100 /uL (0-100); Basophils Percent Auto 0.7 % (0-2); Eosinophils Absolute Auto 200 /uL (0-450); Eosinophils Percent Auto 2.7 % (2-4); Hematocrit 38.5 % (36-46); Hemoglobin 12.8 g/dL (12.0-16.0); Lymphocytes Absolute Auto 1400 /uL (1100-4500); Lymphocytes Percent Auto 20.3 % (25-40); Mean Corpuscular HGB Conc 33.3 % (30-36); Mean Corpuscular Hemoglobin 30.4 PG (26-34); Mean Corpuscular Volume 91.1 fL (80-100); Monocytes Absolute Auto 600 /uL (0-900); Monocytes Percent Auto 8.9 % (3-14); Neutrophils Absolute Auto 4600 /uL (1500-7000); Neutrophils Percent Auto 67.4 % (50-75); Platelet Count 219 X10^3/uL (150-400); Red Blood Cell Count 4.23 X10^6/uL (4.0-5.2); Red Cell Distribution Width 14.6 % (11.6-14.8); White Blood Cell Count 6.8 X10^3/uL (4.5-11.0)
[2023-01-03] MEDS: SODIUM CHLORIDE 0.9% 1,000 ML 150 ML IV (11:09)
[2023-01-03 11:12] LABS: Alanine Aminotransferase 33 IU/L (<35); Albumin 3.9 g/dL (3.5-5.0); Albumin Globulin Ratio 1.3 (1.0-2.8); Alkaline Phosphatase 101 U/L (38-126); Aspartate Aminotransferase 34 IU/L (14-36); BUN Creatinine Ratio 17.1 (6-22); Bilirubin Total 0.8 mg/dL (0.2-1.3); Blood Urea Nitrogen 13 mg/dL (7-17); Calcium 9.2 mg/dL (8.4-10.2); Carbon Dioxide 23 mmol/L (22-32); Chloride 105 mmol/L (98-107); Estimated Glomerular Filt Rate > 60 mL/min (>60); Glucose 137 mg/dL (80-110); HEMOLYSIS < 15 (0-50); Lipase 105 U/L (23-300); Potassium 3.2 mmol/L (3.4-5.1); Sodium 137 mmol/L (137-145); Total Protein 6.9 g/dL (6.3-8.2)
[2023-01-03 11:13] LABS: Lactate (Lactic Acid) 3.1 mmol/L (0.7-2.1)
[2023-01-03 11:59] LABS: Procalcitonin 0.04 ng/mL (<0.5)
[2023-01-03 12:57] LABS: Reflexed Lactate in 2 Hours Y
[2023-01-03 13:14] LABS: Lactate 2HR (Lactic Acid Rflx) 1.4 mmol/L (0.7-2.1)
[2023-01-03] MEDS: POTASSIUM CHLORIDE 20 MEQ TAB PO (13:37)
[2023-01-03 13:38] LABS: Bacteria Urine Moderate (10-30); Calcium Oxalate Crystals Urine Many; Mucus Urine 1+ (Negative); RBC Urine 0-1/HPF (0-5/HPF); Squamous Epithelial Cell Urine 1-5 /HPF (0-5/HPF); WBC Urine 5-10/HPF (0-5/HPF)
[2023-01-03 13:39] LABS: Culture Indicated Urine Specimen Cultured
== END 2023-01-03 14:45 | disposition home or self-care (01) ==
PROVIDERS: Emergency Provider Emergency Medicine; PCP Family Medicine
DX: N39.0 Urinary tract infection, site not specified (principal); R19.7 Diarrhea, unspecified; R11.0 Nausea; I48.91 Unspecified atrial fibrillation; Z79.01 Long term (current) use of anticoagulants
CPT/HCPCS: 36415; 80053; 81003; 81015; 83605; 83690; 84145; 85025; 87040; 87086; 93005; 93010; 96360; 96361; 99284

== ENCOUNTER 2024-01-22 13:40 | Emergency (ER) | payer MEDICARE, OTHER, SELFPAY ==
[2024-01-22] VITALS (9 sets, daily range): BP systolic 109–123; BP diastolic 55–65; PULSE 99–108; RESP 20–35; TEMP 37.8–38; O2SAT 90–97; BMI 26.7
--- NOTE | 2024-01-22 13:55 | DI.RAD.S_ITS ---
PROCEDURE: XR CHEST 1V INDICATIONS: suspected sepsis TECHNIQUE: One view of the chest was acquired. COMPARISON: None. FINDINGS: Surgical changes and devices: None. Lungs and pleura: Lungs are clear. No pleural effusions or pneumothorax. Mediastinum: Mediastinal contours appear normal. Heart size is enlarged. Bones and chest wall: No suspicious bony lesions. Overlying soft tissues appear unremarkable. IMPRESSION: No acute pulmonary process. Dictated by: Carrie Jj M.D. on 01/22/2024 at 14:13 Approved by: Carrie Jj M.D. on 01/22/2024 at 14:16
[2024-01-22] MEDS: SODIUM CHLORIDE 0.9% 1,000 ML 1000 ML IV (14:23)
[2024-01-22] MEDS: ACETAMINOPHEN 325 MG TABLET 975 MG PO (14:25)
[2024-01-22 14:29] LABS: Add Manual Diff / Slide Review NO; Basophils Absolute Auto 0 /uL (0-100); Basophils Percent Auto 0.3 % (0-2); Eosinophils Absolute Auto 0 /uL (0-450); Eosinophils Percent Auto 0.4 % (2-4); Hemoglobin 12.1 g/dL (12.0-16.0); Lymphocytes Absolute Auto 400 /uL (1100-4500); Lymphocytes Percent Auto 5.9 % (25-40); Mean Corpuscular HGB Conc 33.5 % (30-36); Mean Corpuscular Hemoglobin 30.4 PG (26-34); Mean Corpuscular Volume 90.7 fL (80-100); Monocytes Absolute Auto 200 /uL (0-900); Neutrophils Absolute Auto 6000 /uL (1500-7000); Neutrophils Percent Auto 90.4 % (50-75); Platelet Count 153 X10^3/uL (150-400); Red Blood Cell Count 3.97 X10^6/uL (4.0-5.2); Red Cell Distribution Width 14.6 % (11.6-14.8); White Blood Cell Count 6.6 X10^3/uL (4.5-11.0)
[2024-01-22 14:35] LABS: INR 1.1 (0.9-1.3); Prothrombin Time 12.4 SECONDS (9.4-12.5)
[2024-01-22 14:38] LABS: PTT Partial Thromboplastin Tim 27 SECONDS (25.1-36.5)
--- NOTE | 2024-01-22 14:38 | ED.NAVMDI ---
HPI - Nausea/Vomiting/Diarrhea General Chief complaint: Nausea/Vomiting/Diarrhea Stated complaint: Chills NVD Time Seen by Provider: 01/22/24 13:57 Source: patient Mode of arrival: Wheelchair Limitations: no limitations History of Present Illness HPI Narrative: 78-year-old female with history of atrial fibrillation on Eliquis and diltiazem with neuroendocrine carcinoma, patient has had a prior episode of C diff. Patient has had 2 prior liver resections, partial small-bowel resection and received octreotide injections every 28 days. Patient states she started having chills last night soaked through her clothes. Had a normal temp at home but is febrile here. She has been sneezing more lately but states tulips season which is typical for her. She denies any cold cough or congestion symptoms otherwise. No chest pain, no shortness of breath. She did have some nausea and vomiting today threw up all of her breakfast. Chronic diarrhea which has not changed from her baseline. She states no melanotic stools or hematochezia. Patient states it has not after lower surgery she knows her urine output is a little bit slower, she is occasionally notes some dysuria but no frequency or urgency. She would some hemorrhoids that is sometimes burn but no other symptoms. Patient states home medications include Eliquis, diltiazem and octreotide which she takes injections every 28 days. Patient has had prior liver resection x2, partial bowel resection. She is allergies to sulfa, doxycycline and rosuvastatin. Nonsmoker, occasional alcohol, no recreational drugs. Related Data Home Medications Medication Instructions Recorded Confirmed threonine (bulk) (L-Threonine 1 ea miscellaneous DAILY 04/15/20 04/08/23 crystals) zinc 10 mg tablet 10 mg PO DAILY 08/01/20 04/08/23 omeprazole magnesium 20 mg 20 mg PO DAILY 03/13/21 04/08/23 tablet,delayed release (Prilosec OTC) loperamide 2 mg capsule 2 mg PRN PRN Diarrhea 07/03/21 04/08/23 diltiazem HCl 180 mg 180 mg PO DAILY 02/16/22 04/08/23 capsule,extended release 24 hr acetaminophen 325 mg capsule 650 mg PO Q4H PRN Pain (Scale 03/19/22 04/08/23 (Tylenol) Score 4-6) lactobacillus comb no.10 20 31,000 mmu cells PO DAILY 01/14/23 04/08/23 billion cell capsule (Probiotic) bergamot extract 500 mg capsule 1,200 mg PO DAILY 04/08/23 04/08/23 ([place] Bergamot) Previous Rx's Medication Instructions Recorded apixaban 5 mg tablet (Eliquis) 5 mg PO BID #180 tabs 01/05/19 lorazepam 1 mg tablet 1 mg PO PRN PRN Anxiety #20 tabs 07/03/21 promethazine 25 mg tablet 25 mg PO Q6H PRN nausea and 09/19/22 vomiting #10 tabs ondansetron HCl 4 mg tablet 4 mg PO Q8H PRN nausea and 01/05/23 vomiting #30 tabs nitrofurantoin 100 mg PO Q12H 5 days #10 caps 01/22/24 monohydrate/macrocrystals 100 mg capsule (Macrobid) Allergies Allergy/AdvReac Type Severity Reaction Status Date / Time Sulfa (Sulfonamide Allergy Mild rash, Verified 11/12/22 13:30 Antibiotics) strawberry patches doxycycline AdvReac Intermediate Blisters Verified 11/12/22 13:30 in mouth and itchy skin rosuvastatin AdvReac Mild diffuse Verified 11/12/22 13:30 muscle and joint pain Review of Systems Review of Systems ROS Unobtainable: All systems reviewed & are unremarkable except as noted in HPI and below Patient History Medical History Cervical somatic dysfunction Cranial somatic dysfunction Physician orders for life-sustaining treatment (POLST) form indicates patient wish for [id number]-[id number] status UTI (urinary tract infection) Neuroendocrine carcinoma metastatic to liver Hyperlipidemia Liver masses Claustrophobia Rubella Mumps Measles Hepatitis A (~1973) Chicken pox Atrial fibrillation Surgical History Anesthesia History of tubal ligation (~1972) History of removal of cyst (~1969) Family History Father Congestive heart failure Grandfather Stomach cancer Grandmother Multiple myeloma Social History household members: family Smoking Status: Never smoker second hand exposure: No alcohol intake: never substance use type: does not use Smoking Status: Never smoker alcohol intake frequency: holidays/special occasions only Substance Use Type: does not use Exam Narrative Exam Narrative: GEN: well nourished, well appearing female, alert and oriented x 3, patient appears to be in mild distress. HEENT: Atraumatic, pupils are equal round reactive to light, extraocular movements are intact, nares are clear, there is no conjunctival pallor. HEART: Regular rate and rhythm without murmur, clicks, rubs. Pulses are equal in upper and lower extremities LUNGS:Lungs clear to auscultation, no wheezes, rales, crackles, chest moves symmetrically, no tachypnea or accessory muscle use ABD:bowel sounds normal, soft, non-tender, no guarding, rebound, rigidity, no masses noted, no hepatosplenomegaly :No CVA tenderness MSCL: Non-tender, no muscle atrophy, muscles strength 5/5 upper and lower extremities, full range of motion NEURO:CN 2-12 intact, sensation normal SKIN: No rash, erythema or other skin changes. Initial Vital Signs Initial Vital Signs: Vital Signs Temperature 100.1 F H 01/22/24 13:43 Pulse Rate 108 H 01/22/24 13:43 Respiratory Rate 22 01/22/24 13:43 Blood Pressure 118/64 01/22/24 13:43 Pulse Oximetry 97 01/22/24 13:43 Oxygen Delivery Method Room Air 01/22/24 13:43 Course Orders Ordered: ED Orders 01/22/24 13:55 XR chest 1V Stat EKG-12 Lead Stat RT Consult Eval and Treat NOW 01/22/24 14:00 Respiratory Panel (Film Array) Stat 01/22/24 14:10 Complete Blood Count AUTO DIFF Stat Comprehensive Metabolic Panel Stat Lactate (Lactic Acid) Stat Lipase Stat PTT Partial Thromboplastin Georgi Stat Procalcitonin Stat Prothrombin Time INR Stat 01/22/24 14:25 Blood Culture Stat 01/22/24 15:41 UA Complete [Urinalysis and Microscopic] Stat Urine Culture Stat Discontinued Medications Acetaminophen (Acetaminophen 325 Mg Tablet) 975 mg PO NOW ONE Stop: 01/22/24 14:12 Last Admin: 01/22/24 14:25 Dose: 325 mg Documented By: AMOL Sodium Chloride (Normal Saline 0.9%) 1,000 mls @ 1,000 mls/hr IV BOLUS ONE Stop: 01/22/24 14:54 Last Infusion: 01/22/24 15:35 Dose: Infused Documented By: Admin: 01/22/24 14:23 Dose: 1,000 mls/hr Documented By: AMOL Nitrofurantoin Macrocrystals (Nitrofurantoin Er 100 Mg Capsule) 100 mg PO NOW ONE Stop: 01/22/24 16:21 Last Admin: 01/22/24 16:38 Dose: 100 mg Documented By: AMOL Ondansetron HCl (Ondansetron 4 Mg/2 Ml Inj) 4 mg IV NOW PRN PRN Reason: Nausea And Vomiting Ondansetron HCl (Ondansetron 4 Mg Odt) 4 mg SL NOW PRN PRN Reason: Nausea And Vomiting Ondansetron HCl (Ondansetron 4 Mg Odt Prepack) 1 bottle MISC DIRECTED ONE Stop: 01/22/24 16:44 Last Admin: 01/22/24 16:46 Dose: 1 bottle Documented By: AMOL Potassium Chloride (Potassium Chloride 20 Meq Tab) 40 meq PO NOW ONE Stop: 01/22/24 15:08 Last Admin: 01/22/24 15:18 Dose: 40 meq Documented By: AMOL Vital Signs Vital signs: Vital Signs - 8 hr 01/22/24 13:43 01/22/24 14:05 01/22/24 14:07 Temperature 100.1 F H Pulse Rate 108 H 101 H 102 H Respiratory Rate 22 32 H Blood Pressure 118/64 Pulse Oximetry 97 96 95 Oxygen Delivery Method Room Air 01/22/24 14:07 01/22/24 14:25 01/22/24 14:30 Temperature 100.4 F H Pulse Rate 99 H Respiratory Rate 24 Blood Pressure 123/58 L Pulse Oximetry 95 Oxygen Delivery Method 01/22/24 14:30 01/22/24 15:00 01/22/24 15:00 Temperature Pulse Rate 101 H Respiratory Rate 20 Blood Pressure 110/55 L 113/58 L Pulse Oximetry 90 L Oxygen Delivery Method 01/22/24 15:30 01/22/24 15:30 01/22/24 16:39 Temperature Pulse Rate 103 H Respiratory Rate 35 H Blood Pressure 119/65 Pulse Oximetry 96 96 Oxygen Delivery Method 01/22/24 16:40 01/22/24 16:40 Temperature Pulse Rate 100 H Respiratory Rate Blood Pressure 109/60 Pulse Oximetry 96 Oxygen Delivery Method MDM - Nausea/Vomiting/Diarrhea Lab Data 01/22/24 14:10 01/22/24 14:10 Labs: Lab Results 01/22/24 01/22/24 01/22/24 Range/Units 14:00 14:10 15:41 WBC 6.6 (4.5-11.0) X10^3/uL RBC 3.97 L (4.0-5.2) X10^6/uL Hgb 12.1 (12.0-16.0) g/dL Hct 36.0 (36-46) % MCV 90.7 (80-100) fL MCH 30.4 (26-34) PG MCHC 33.5 (30-36) % RDW 14.6 (11.6-14.8) % Plt Count 153 (150-400) X10^3/uL Neut % (Auto) 90.4 H (50-75) % Lymph % (Auto) 5.9 L (25-40) % [place] % (Auto) 3.0 (3-14) % Eos % (Auto) 0.4 L (2-4) % Baso % (Auto) 0.3 (0-2) % Neut # (Auto) 6000 (9155-6188) /uL Lymph # (Auto) 400 L (3120-9967) /uL [place] # (Auto) 200 (0-900) /uL Eos # (Auto) 0 (0-450) /uL Baso # (Auto) 0 (0-100) /uL PT 12.4 (9.4-12.5) SECONDS INR 1.1 (0.9-1.3) APTT 27 (25.1-36.5) SECONDS Sodium 141 (137-145) mmol/L Potassium 2.9 L (3.4-5.1) mmol/L Chloride 112 H (98-107) mmol/L Carbon Dioxide 20 L (22-32) mmol/L BUN 12 (7-17) mg/dL Creatinine 0.67 (0.52-1.04) mg/dL Estimated GFR > 60 (>60) mL/min BUN/Creatinine Ratio 17.9 (6-22) Glucose 118 H (80-110) mg/dL Lactate 2.0 (0.7-2.1) mmol/L Calcium 9.3 (8.4-10.2) mg/dL Total Bilirubin 1.1 (0.2-1.3) mg/dL AST 34 (14-36) IU/L ALT 18 (<35) IU/L Alkaline Phosphatase 109 (38-126) U/L Total Protein 7.1 (6.3-8.2) g/dL Albumin 4.1 (3.5-5.0) g/dL Globulin 3.0 (1.7-4.1) g/dL Albumin/Globulin Ratio 1.4 (1.0-2.8) Lipase 55 (23-300) U/L Procalcitonin 0.23 (<0.5) ng/mL Urine Color Yellow Urine Appearance Sl cloudy Urine pH 6.0 (4.5-8.0) Ur Specific [place] 1.020 (1.000-1.035) Urine Protein 1+ H (Negative) Urine Glucose (UA) Negative (Negative) g/dL Urine Ketones Trace H (NEGATIVE) Urine Occult Blood Trace-intact (Negative) Urine Nitrate Positive H (Negative) Urine Bilirubin Negative (NEGATIVE) Urine Urobilinogen 0.2 (0.2) E.U./dL Ur Leukocyte Esterase 1+ H (NEGATIVE) Urine RBC 0-1/hpf (0-5/HPF) Urine WBC 30-100/hpf H (0-5/HPF) Ur Squamous Epith Cells 1-5 /hpf (0-5/HPF) Urine Bacteria Many (>30) H (None) Ur Culture Indicated? Specimen cultured Vol Urine Centrifuged 10ml (spun) Chlamy pneumoniae PCR Not detected (Not Detect) Adenovirus (PCR) Not detected (Not Detect) B.parapertussis DNA PCR Not detected (Not Detecte) Coronavirus OC43 (PCR) Not detected (Not Detect) Coronavirus HKU1 (PCR) Not detected (Not Detect) Coronavirus 229E (PCR) Not detected (Not Detect) SARS-CoV-2 (PCR) Not detected (Not Detecte) Coronavirus NL63 (PCR) Not detected (Not Detect) Human Metapneumovir PCR Not detected (Not Detect) Influenza Type A (PCR) Not detected (Not Detect) Influenza Type B (PCR) Not detected (Not Detect) M. pneumoniae (PCR) Not detected (Not Detect) Parainfluenza 1 (PCR) Not detected (Not Detect) Parainfluenza 2 (PCR) Not detected (Not Detect) Parainfluenza 3 (PCR) Not detected (Not Detect) Parainfluenza 4 (PCR) Not detected (Not Detect) RSV (PCR) Not detected (Not Detect) Entero/Rhino (PCR) Not detected (Not Detect) Imaging Data Chest x-ray: Radiologist's Impression: [address] [address] XRay Report Signed Patient: Irene Butler MR#: [id number] : 1945 Acct:[id number] Age/Sex: 78 / F Date of Service: 01/22/24 Loc: ED Accession Number: [id number] Procedure: XR chest 1V Ordering Provider: Hannah Hawthorne D.O. PROCEDURE: XR CHEST 1V INDICATIONS: suspected sepsis TECHNIQUE: One view of the chest was acquired. COMPARISON: None. FINDINGS: Surgical changes and devices: None. Lungs and pleura: Lungs are clear. No pleural effusions or pneumothorax. Mediastinum: Mediastinal contours appear normal. Heart size is enlarged. Bones and chest wall: No suspicious bony lesions. Overlying soft tissues appear unremarkable. IMPRESSION: No acute pulmonary process. Dictated by: Carrie Jj M.D. on 01/22/2024 at 14:13 Approved by: Carrie Jj M.D. on 01/22/2024 at 14:16 ECG Data Attestation: I personally reviewed and interpreted this ECG as follows: Prior ECG tracings: available for review Interpretation: AFib rate of 98 QRS 80 QTC 469, no acute ST elevation, nonspecific change. Patient has prior from 01/03/2023 appears similar overall with atrial fibrillation in the 1 as well. MDM Narrative Medical decision making narrative: 78-year-old female who came in with fever, tachycardia, patient has had chills felt unwell. Does have a history of neuroendocrine cancer. Labs show white count of 6.6 hemoglobin of 12 platelets of 153 predominance of neutrophils. INR is 1.1, potassium is 2.9 was replaced orally, chloride was 112, CO2 is 20 with a BUN 12, GFR is 0.67. Glucose was 118 lactate 2, calcium is 9.3 with normal LFTs, procalcitonin is 0.23. Patient has not nitrate positive urine with trace ketones 1+ protein, 0-1 RBCs 3200 WBCs 1-5 squamous with many bacteria was sent for culture. Respiratory panel is negative. Chest x-ray shows no acute change. Spoke with patient she is feeling improved after fluids, Tylenol here in the department she has been tolerating oral hydration with several cups of water. She does have a history of C diff discussed starting antibiotics for UTI she does have a nitrate positive urine. She has not allergy to sulfa so selected Macrobid. Discussed with patient she already takes kefir and to continue this while taking any antibiotics. We did discuss there is some risk involved but she is feeling quite poorly and I think would get significantly worse without treatment or while awaiting culture. We will send a script for Zofran. Patient and I discussed return precautions she feels comfortable with discharge home. Discharge Plan Departure Patient Disposition: Home Clinical Impression: Acute UTI Activity Restrictions/Additional Instructions: Please follow up for recheck, your urine shows signs of infection. Take Zofran, 1 tablet every 6 hours as needed for nausea/vomiting. Take antibiotics as prescribed, prescription was sent to [facility] in [place]. These antibiotics can increase your risk of C diff although less than some others. Make sure your taking probiotics or live cultured yogurt or kefir 1-2 times daily. You can take Tylenol and/or ibuprofen for fever. You should start to feel improved in the next 24-48 hours with antibiotics. Please return for persistent fevers, worsening symptoms, lightheadedness or passing out, new chest pain or shortness of breath, persistent vomiting, difficulty with urination, back or flank pain or other new or concerning changes. Prescriptions: New nitrofurantoin monohyd/m-cryst [Macrobid] 100 mg capsule 100 mg PO Q12H 5 Days Qty: 10 0RF Rx Instructions: must administer with a meal/food No Action ondansetron HCl 4 mg tablet 4 mg PO Q8H PRN (Reason: nausea and vomiting) Qty: 30 1RF diltiazem HCl 180 mg capsule,extended release 24hr 180 mg PO DAILY Eliquis 5 mg tablet 5 mg PO BID Qty: 180 1RF promethazine 25 mg tablet 25 mg PO Q6H PRN (Reason: nausea and vomiting) Qty: 10 0RF L-Threonine Crystals 1 ea MISCELLANEOUS DAILY zinc 10 mg Tablet 10 mg PO DAILY omeprazole magnesium [Prilosec OTC] 20 mg Tablet,Delayed Release (Dr/Ec) 20 mg PO DAILY loperamide [Imodium] 2 mg Capsule 2 mg PRN PRN (Reason: Diarrhea) lorazepam 1 mg Tablet 1 mg PO PRN PRN (Reason: Anxiety) Qty: 20 0RF acetaminophen [Tylenol] 325 mg Capsule 650 mg PO Q4H PRN (Reason: Pain (Scale Score 4-6)) Probiotic 20 billion cell Capsule 31,000 mmu cells PO DAILY Rx Instructions: administer with a meal [place] Bergamot 500 mg Capsule 1,200 mg PO DAILY Referrals: Jesus Madsen DO [Primary Care Provider] - Stand Alone Forms: Patient Portal/API
[2024-01-22 14:41] LABS: Alanine Aminotransferase 18 IU/L (<35); Albumin 4.1 g/dL (3.5-5.0); Albumin Globulin Ratio 1.4 (1.0-2.8); Alkaline Phosphatase 109 U/L (38-126); Aspartate Aminotransferase 34 IU/L (14-36); BUN Creatinine Ratio 17.9 (6-22); Bilirubin Total 1.1 mg/dL (0.2-1.3); Blood Urea Nitrogen 12 mg/dL (7-17); Calcium 9.3 mg/dL (8.4-10.2); Carbon Dioxide 20 mmol/L (22-32); Chloride 112 mmol/L (98-107); Estimated Glomerular Filt Rate > 60 mL/min (>60); Glucose 118 mg/dL (80-110); HEMOLYSIS < 15 (0-50); Lipase 55 U/L (23-300); Potassium 2.9 mmol/L (3.4-5.1); Sodium 141 mmol/L (137-145); Total Protein 7.1 g/dL (6.3-8.2)
[2024-01-22 14:56] LABS: Adenovirus Not Detected (Not Detect); B. parapertussis Not Detected (Not Detecte); Bordetella pertussis Not Detected (Not Detect); Chlamydophila pneumoniae Not Detected (Not Detect); Coronavirus 229E Not Detected (Not Detect); Coronavirus HKU1 Not Detected (Not Detect); Coronavirus NL 63 Not Detected (Not Detect); Coronavirus OC43 Not Detected (Not Detect); Human Metapneumovirus Not Detected (Not Detect); Human Rhinovirus/Enterovirus Not Detected (Not Detect); Influenza A Not Detected (Not Detect); Influenza B Not Detected (Not Detect); Mycoplasma pneumoniae Not Detected (Not Detect); Parainfluenza Virus 1 Not Detected (Not Detect); Parainfluenza Virus 2 Not Detected (Not Detect); Parainfluenza Virus 3 Not Detected (Not Detect); Parainfluenza Virus 4 Not Detected (Not Detect); Respiratory Syncytial Virus Not Detected (Not Detect); SARS- CoV-2 Not Detected (Not Detecte)
[2024-01-22 14:57] LABS: Procalcitonin 0.23 ng/mL (<0.5)
[2024-01-22] MEDS: POTASSIUM CHLORIDE 20 MEQ TAB 40 MEQ PO (15:18)
[2024-01-22 15:59] LABS: Appearance Urine UA SL CLOUDY; Bilirubin Urine UA NEGATIVE (NEGATIVE); Color Urine UA YELLOW; Glucose Urine UA NEGATIVE (Negative); Ketones Urine UA TRACE (NEGATIVE); Leukocyte Esterase Urine UA 1+ (NEGATIVE); Nitrite Urine UA POSITIVE (Negative); Occult Blood Urine UA TRACE-INTACT (Negative); Protein Urine UA 1+ (Negative); Urobilinogen Urine UA 0.2 E.U./dL (0.2)
[2024-01-22 16:07] LABS: Bacteria Urine Many (>30); Culture Indicated Urine Specimen Cultured; RBC Urine 0-1/HPF (0-5/HPF); Squamous Epithelial Cell Urine 1-5 /HPF (0-5/HPF); Urine Volume 10mL (spun); WBC Urine 30-100/HPF (0-5/HPF)
[2024-01-22] MEDS: NITROFURANTOIN ER 100 MG CAPSULE PO (16:38)
[2024-01-22] MEDS: ONDANSETRON 4 MG ODT PREPACK 1 BOTTLE MISC (16:46)
== END 2024-01-22 16:57 | disposition home or self-care (01) ==
PROVIDERS: Emergency Provider Emergency Medicine; PCP Family Medicine
DX: N39.0 Urinary tract infection, site not specified (principal); R11.2 Nausea with vomiting, unspecified; R00.0 Tachycardia, unspecified; I48.91 Unspecified atrial fibrillation; Z79.01 Long term (current) use of anticoagulants
CPT/HCPCS: 36415; 71045; 80053; 81001; 83605; 83690; 84145; 85025; 85610; 85730; 87040; 87077; 87086; 87186; 87633; 93005; 93010; 96360; 99284

== ENCOUNTER → 2024-02-01 14:22 | Outpatient (CLI) | payer MEDICARE, OTHER, SELFPAY ==
[2024-02-01 15:37] LABS: Appearance Urine UA CLEAR; Bilirubin Urine UA NEGATIVE (NEGATIVE); Color Urine UA YELLOW; Glucose Urine UA NEGATIVE (Negative); Ketones Urine UA NEGATIVE (NEGATIVE); Leukocyte Esterase Urine UA TRACE (NEGATIVE); Nitrite Urine UA NEGATIVE (Negative); Occult Blood Urine UA NEGATIVE (Negative); Protein Urine UA NEGATIVE (Negative); Specific Gravity Urine UA <=1.005 (1.000-1.035); Urobilinogen Urine UA 0.2 E.U./dL (0.2)
[2024-02-01 16:18] LABS: RBC Urine 0-1/HPF (0-5/HPF); Urine Volume 10mL (spun); WBC Urine 1-5/HPF (0-5/HPF)
[2024-02-01 16:19] LABS: Bacteria Urine Few (2-10); Culture Indicated Urine Specimen Cultured; Squamous Epithelial Cell Urine 1-5 /HPF (0-5/HPF)
[2024-02-02 08:34] LABS: Clostridium Difficile Tox PCR Positive for C. diff (Negative)
== END ==
PROVIDERS: PCP Family Medicine; Referring Provider Family Medicine; Visit Provider Family Medicine
DX: N39.0 Urinary tract infection, site not specified (principal)
CPT/HCPCS: 81001; 87086; 87324; 87493

== ENCOUNTER 2024-04-04 17:35 | Emergency (ER) | payer MEDICARE, OTHER, SELFPAY ==
[2024-04-04] VITALS (12 sets, daily range): BP systolic 115–144; BP diastolic 57–85; PULSE 78–100; RESP 18; TEMP 36.8; O2SAT 96–99; BMI 26.3
--- NOTE | 2024-04-04 18:27 | EKG_ITS ---
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
[2024-04-04 18:40] LABS: Add Manual Diff / Slide Review NO; Basophils Absolute Auto 0 /uL (0-100); Basophils Percent Auto 0.4 % (0-2); Eosinophils Absolute Auto 0 /uL (0-450); Eosinophils Percent Auto 0.4 % (2-4); Hematocrit 41.7 % (36-46); Hemoglobin 13.8 g/dL (12.0-16.0); Lymphocytes Absolute Auto 1100 /uL (1100-4500); Lymphocytes Percent Auto 12.8 % (25-40); Mean Corpuscular HGB Conc 33.2 % (30-36); Mean Corpuscular Hemoglobin 30.4 PG (26-34); Mean Corpuscular Volume 91.7 fL (80-100); Monocytes Absolute Auto 600 /uL (0-900); Monocytes Percent Auto 6.3 % (3-14); Neutrophils Absolute Auto 7100 /uL (1500-7000); Neutrophils Percent Auto 80.1 % (50-75); Platelet Count 210 X10^3/uL (150-400); Red Blood Cell Count 4.55 X10^6/uL (4.0-5.2); Red Cell Distribution Width 15.6 % (11.6-14.8); White Blood Cell Count 8.9 X10^3/uL (4.5-11.0)
[2024-04-04 18:54] LABS: Alanine Aminotransferase 21 IU/L (<35); Albumin 4.5 g/dL (3.5-5.0); Albumin Globulin Ratio 1.5 (1.0-2.8); Alkaline Phosphatase 116 U/L (38-126); Aspartate Aminotransferase 29 IU/L (14-36); BUN Creatinine Ratio 15.2 (6-22); Bilirubin Total 0.7 mg/dL (0.2-1.3); Blood Urea Nitrogen 12 mg/dL (7-17); Calcium 9.5 mg/dL (8.4-10.2); Carbon Dioxide 20 mmol/L (22-32); Chloride 112 mmol/L (98-107); Estimated Glomerular Filt Rate > 60 mL/min (>60); Globulin 3.1 g/dL (1.7-4.1); Glucose 120 mg/dL (80-110); HEMOLYSIS < 15 (0-50); Lipase 62 U/L (23-300); Potassium 3.7 mmol/L (3.4-5.1); Sodium 141 mmol/L (137-145); Total Protein 7.6 g/dL (6.3-8.2)
--- NOTE | 2024-04-04 22:18 | ED_ITS ---
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 with a neuroendocrine tumor specialist, followed by Dr. Cabezas oncology who was most recently working out of [facility], currently taking octreotide therapy, awaiting referral for radioactive immunotherapy at [facility] trial, known right-sided lateral ventral wall hernia that has not been repaired, now with left-sided left flank area discomfort since noon today. Some nausea without emesis. No diarrhea. No black or red stools. No injury trauma new activities. No cough or shortness of breath. No dysuria or frequency of urination. She has not prone to urinary tract infection. She has not had kidney stones before. Last bowel movement earlier today unremarkable. Denies history of colitis or diverticulitis. Related Data Home Medications Medication Instructions Recorded Confirmed threonine (bulk) (L-Threonine 1 ea miscellaneous DAILY 04/15/20 04/08/23 crystals) zinc 10 mg tablet 10 mg PO DAILY 08/01/20 04/08/23 omeprazole magnesium 20 mg 20 mg PO DAILY 03/13/21 04/08/23 tablet,delayed release (Prilosec OTC) loperamide 2 mg capsule 2 mg PRN PRN Diarrhea 07/03/21 04/08/23 diltiazem HCl 180 mg 180 mg PO DAILY 02/16/22 04/08/23 capsule,extended release 24 hr acetaminophen 325 mg capsule 650 mg PO Q4H PRN Pain (Scale 03/19/22 04/08/23 (Tylenol) Score 4-6) lactobacillus comb no.10 20 31,000 mmu cells PO DAILY 01/14/23 04/08/23 billion cell capsule (Probiotic) bergamot extract 500 mg capsule 1,200 mg PO DAILY 04/08/23 04/08/23 (Hinds Bergamot) Previous Rx's Medication Instructions Recorded apixaban 5 mg tablet (Eliquis) 5 mg PO BID #180 tabs 01/05/19 lorazepam 1 mg tablet 1 mg PO PRN PRN Anxiety #20 tabs 10/21/21 promethazine 25 mg tablet 25 mg PO Q6H PRN nausea and 09/19/22 vomiting #10 tabs ondansetron HCl 4 mg tablet 4 mg PO Q8H PRN nausea and 01/05/23 vomiting #30 tabs Allergies Allergy/AdvReac Type Severity Reaction Status Date / Time Sulfa (Sulfonamide Allergy Mild rash, Verified 11/12/22 13:30 Antibiotics) strawberry patches doxycycline AdvReac Intermediate Blisters Verified 11/12/22 13:30 in mouth and itchy skin rosuvastatin AdvReac Mild diffuse Verified 11/12/22 13:30 muscle and joint pain Review of Systems Review of Systems Narrative: per HPI Patient History Medical History (Updated 04/05/24 @ 01:31 by Bolivar Gaxiola MD) Diarrhea Cervical somatic dysfunction Cranial somatic dysfunction Physician orders for life-sustaining treatment (POLST) form indicates patient wish for [id number] status UTI (urinary tract infection) Neuroendocrine carcinoma metastatic to liver Hyperlipidemia Liver masses Claustrophobia Rubella Mumps Measles Hepatitis A (~1973) Chicken pox Atrial fibrillation Surgical History Anesthesia History of tubal ligation (~1972) History of removal of cyst (~1969) Family History Father Congestive heart failure Grandfather Stomach cancer Grandmother Multiple myeloma Social History household members: family Smoking Status: Never smoker second hand exposure: No alcohol intake: never substance use type: does not use Smoking Status: Never smoker alcohol intake frequency: holidays/special occasions only Substance Use Type: does not use Exam Narrative Exam Narrative: GENERAL: Well-developed patient, in mild distress. HEAD: Atraumatic. Normocephalic. EYES: Pupils equal round and reactive. Extraocular motions intact. No scleral icterus. No injection or drainage. ENT: Nose without bleeding, purulent drainage. Throat without erythema, tonsillar hypertrophy or exudate. Airway patent. NECK: Trachea midline. Non tender CARDIOVASCULAR: Regular rate and rhythm without murmurs, gallops, or rubs. RESPIRATORY: Clear to auscultation. Breath sounds equal bilaterally. No wheezes, rales, or rhonchi. GASTROINTESTINAL: Well-healed scars abdominal, some prominence right lateral aspect with history of known ventral hernia on that side, nontender in the right side. Minimal tenderness left upper quadrant EXTREMITIES: No edema or joint tenderness. BACK: Nontender without deformity or crepitance. No flank tenderness. NEURO: AOx3. SKIN: No rash or erythema of visible areas Initial Vital Signs Initial Vital Signs: Vital Signs Temperature 98.2 F 04/04/24 18:17 Pulse Rate 95 H 04/04/24 18:17 Respiratory Rate 18 04/04/24 18:17 Blood Pressure 143/85 H 04/04/24 18:17 Pulse Oximetry 99 04/04/24 18:17 Oxygen Delivery Method Room Air 04/04/24 18:17 Course Orders Ordered: Discontinued Medications Ondansetron HCl (Ondansetron 4 Mg/2 Ml Inj) 4 mg IV NOW PRN PRN Reason: Nausea And Vomiting Ondansetron HCl (Ondansetron 4 Mg Odt) 4 mg PO NOW PRN PRN Reason: Nausea And Vomiting Ondansetron HCl (Ondansetron 4 Mg Odt Prepack) 1 bottle MISC DIRECTED ONE Stop: 04/05/24 01:32 Last Admin: 04/05/24 02:01 Dose: 1 bottle Documented By: BERNY Ondansetron HCl (Ondansetron 4 Mg Odt Prepack) 1 bottle MISC DIRECTED ONE Stop: 04/05/24 01:59 Last Admin: 04/05/24 02:01 Dose: Not Given Documented By: BERNY Vital Signs Vital signs: Vital Signs - 8 hr 04/04/24 18:17 04/04/24 19:28 04/04/24 19:28 Temperature 98.2 F Pulse Rate 95 H 91 H Respiratory Rate 18 Blood Pressure 143/85 H 144/79 H Pulse Oximetry 99 99 Oxygen Delivery Method Room Air 04/04/24 19:30 04/04/24 19:30 04/04/24 20:00 Temperature Pulse Rate 94 H Respiratory Rate Blood Pressure 140/74 130/61 Pulse Oximetry 99 Oxygen Delivery Method 04/04/24 20:00 04/04/24 20:30 04/04/24 20:30 Temperature Pulse Rate 83 100 H Respiratory Rate 18 Blood Pressure 121/64 Pulse Oximetry 97 97 Oxygen Delivery Method 04/04/24 21:00 04/04/24 21:00 04/04/24 21:30 Temperature Pulse Rate 84 97 H Respiratory Rate Blood Pressure 115/60 Pulse Oximetry 97 97 Oxygen Delivery Method 04/04/24 21:31 04/04/24 21:31 04/04/24 22:00 Temperature Pulse Rate 94 H 97 H Respiratory Rate Blood Pressure 123/57 L Pulse Oximetry 97 97 Oxygen Delivery Method 04/04/24 22:00 04/04/24 22:30 04/04/24 22:30 Temperature Pulse Rate 84 Respiratory Rate Blood Pressure 129/64 128/65 Pulse Oximetry 97 Oxygen Delivery Method 04/04/24 23:00 04/04/24 23:00 04/04/24 23:30 Temperature Pulse Rate 78 88 Respiratory Rate Blood Pressure 121/65 Pulse Oximetry 96 98 Oxygen Delivery Method 04/05/24 00:00 04/05/24 00:30 04/05/24 01:00 Temperature Pulse Rate 85 83 89 Respiratory Rate 18 Blood Pressure Pulse Oximetry 97 98 98 Oxygen Delivery Method MDM - Abdominal Pain Lab Data Attestation: I reviewed the patient's lab results. 04/04/24 18:30 04/04/24 18:30 Labs: Lab Results 04/04/24 Range/Units 18:30 WBC 8.9 (4.5-11.0) X10^3/uL RBC 4.55 (4.0-5.2) X10^6/uL Hgb 13.8 (12.0-16.0) g/dL Hct 41.7 (36-46) % MCV 91.7 (80-100) fL MCH 30.4 (26-34) PG MCHC 33.2 (30-36) % RDW 15.6 H (11.6-14.8) % Plt Count 210 (150-400) X10^3/uL Neut % (Auto) 80.1 H (50-75) % Lymph % (Auto) 12.8 L (25-40) % Ponce % (Auto) 6.3 (3-14) % Eos % (Auto) 0.4 L (2-4) % Baso % (Auto) 0.4 (0-2) % Neut # (Auto) 7100 H (4605-8882) /uL Lymph # (Auto) 1100 (0620-2566) /uL Ponce # (Auto) 600 (0-900) /uL Eos # (Auto) 0 (0-450) /uL Baso # (Auto) 0 (0-100) /uL Sodium 141 (137-145) mmol/L Potassium 3.7 (3.4-5.1) mmol/L Chloride 112 H (98-107) mmol/L Carbon Dioxide 20 L (22-32) mmol/L BUN 12 (7-17) mg/dL Creatinine 0.79 (0.52-1.04) mg/dL Estimated GFR > 60 (>60) mL/min BUN/Creatinine Ratio 15.2 (6-22) Glucose 120 H (80-110) mg/dL Calcium 9.5 (8.4-10.2) mg/dL Total Bilirubin 0.7 (0.2-1.3) mg/dL AST 29 (14-36) IU/L ALT 21 (<35) IU/L Alkaline Phosphatase 116 (38-126) U/L Total Protein 7.6 (6.3-8.2) g/dL Albumin 4.5 (3.5-5.0) g/dL Globulin 3.1 (1.7-4.1) g/dL Albumin/Globulin Ratio 1.5 (1.0-2.8) Lipase 62 (23-300) U/L Point of care testing: Urine Dip Bedside Urine Glucose Negative Bedside Urine Bilirubin - Negative Bedside Urine Ketone - Negative Urine Specific [place] 1.015 Bedside Urine Occult Blood - Negative Bedside Urine pH 5.5 Bedside Urine Protein - Negative Bedside Urine Urobilinogen - Negative Bedside Urine Nitrite - Negative Bedside Urine Leukocytes - Negative Esterase ECG Data Attestation: I personally reviewed and interpreted this ECG as follows: Interpretation: Atrial fibrillation with ventricular rate 78, no obvious ST segment elevation or depression changes. QRS 74. QTC 405. MDM Narrative Medical decision making narrative: 78-year-old female with history of neuroendocrine tumor involving the liver, and omentum, prior hepatic resections in [facility] in the past, awaiting possible radio immunotherapy consultation through [facility] in [place], follow up by [facility], known right-sided ventral hernia that does not felt to be repairable, with complaint of left upper quadrant abdominal discomfort. Afebrile, sirs screen negative. Minimal tenderness left upper quadrant on examination. Labs unremarkable. CT abdomen and pelvis was pending. CT abdomen and pelvis showed enteritis like changes. Post surgical bowel resection changes noted, postsurgical call hepatic partial lobectomy changes also noted. Diverticulosis noted but no diverticulitis at this time. Small bowel changes consistent with enteritis per radiologist's reading. Copy of report given to patient. Follow up with the PCP, in coordination of future [facility] follow up as planned. Discharged home with family. Home pack ondansetron to use if needed. Critical Care Time Critical Care Time Critical Care Time: Yes Total Critical Care Time: 31 Attestation: The high probability of a clinically significant, sudden or life threatening deterioration of the [gastrointestinal, abdominopelvic, hepatic] system(s) required my full and direct attention, intervention and personal management. The aggregate critical care time was [31] minutes. This time is in addition to time spent performing reported procedures but includes the following: [x] Data Review and interpretation [x] Patient assessment and monitoring of vital signs [x] Documentation [x] Medication orders and management Discharge Plan Departure Patient Disposition: Home Clinical Impression: Abdominal pain, Enteritis Activity Restrictions/Additional Instructions: Left upper quadrant abdominal discomfort without trauma known, history of complex neuroendocrine tumor involving previous liver areas with resections, also omentum areas, awaiting future consultation with [facility] in [place] for possible radionuclide therapy options. Abdominal discomfort, well-healed scars on exam. Labs unremarkable. CT abdomen and pelvis showed enteritis like changes by report, along with post surgical bowel and liver changes, no mention of any diverticulitis although there was diverticulosis. No indication at this time for obstruction or abscess or complex findings. Incidental right ventral hernia also noted, but not obstructing. Ondansetron antinausea medicine. Prescriptions: No Action ondansetron HCl 4 mg tablet 4 mg PO Q8H PRN (Reason: nausea and vomiting) Qty: 30 1RF diltiazem HCl 180 mg capsule,extended release 24hr 180 mg PO DAILY Eliquis 5 mg tablet 5 mg PO BID Qty: 180 1RF promethazine 25 mg tablet 25 mg PO Q6H PRN (Reason: nausea and vomiting) Qty: 10 0RF L-Threonine Crystals 1 ea MISCELLANEOUS DAILY zinc 10 mg Tablet 10 mg PO DAILY omeprazole magnesium [Prilosec OTC] 20 mg Tablet,Delayed Release (Dr/Ec) 20 mg PO DAILY loperamide [Imodium] 2 mg Capsule 2 mg PRN PRN (Reason: Diarrhea) lorazepam 1 mg Tablet 1 mg PO PRN PRN (Reason: Anxiety) Qty: 20 0RF acetaminophen [Tylenol] 325 mg Capsule 650 mg PO Q4H PRN (Reason: Pain (Scale Score 4-6)) Probiotic 20 billion cell Capsule 31,000 mmu cells PO DAILY Rx Instructions: administer with a meal Hinds Bergamot 500 mg Capsule 1,200 mg PO DAILY Referrals: Jesus Madsen DO [Primary Care Provider] - Stand Alone Forms: Patient Portal/API
--- NOTE | 2024-04-04 22:22 | DI.CT.S_ITS ---
PROCEDURE: CT ABDOMEN PELVIS W CON INDICATIONS: LUQ abd pain, hx abd tumor/liver tumor TECHNIQUE: After the administration of intravenous contrast, axial sections acquired from the lung bases to the pubic symphysis. Coronal and sagittal reformats were performed. For radiation dose reduction, the following was used: automated exposure control, adjustment of mA and/or kV according to patient size. COMPARISON: [facility], CT, CT ABDOMEN PELVIS W CON, 09/19/2022, 3:57. [facility], CT, CT ABDOMEN PELVIS W CON, 04/16/2020, 9:33. FINDINGS: Image quality: Diagnostic. Lower Chest: No significant findings. ABDOMEN: Liver: Stable postsurgical changes of previous right hepatic lobe resection. Surgical clips along the right peripheral margin of the liver with stable subcapsular fluid collection. This again likely represents a seroma. Hepatic steatosis. Surgical clips noted in the anterior left hepatic lobe compatible with interval resection of previously described mass in the region. No new hepatic lesions identified. Gallbladder: Gallbladder is not visualized and presumably surgically absent. Biliary ducts: No biliary dilation. Pancreas: No ductal dilation. Spleen: Size is within normal limits. Adrenal Glands: Right adrenal gland is not visualized and presumably surgically absent. Normal left adrenal gland. Kidneys and Ureters: No hydronephrosis. No solid mass. No complex renal cystic lesion which requires follow up. Bilateral renal cysts as before. Stomach and Bowel: Colonic diverticulosis with wall thickening and inflammatory changes involving a segment of the distal descending colon/proximal sigmoid colon. This is seen mostly in the mid and left abdomen. Adjacent inflammatory changes are seen in a segment of mildly prominent small bowel. Mild mesenteric stranding identified. No evidence for bowel obstruction. Mild generalized inflammatory changes of the mesentery seen in the region. There are new postsurgical changes of bowel within lateral abdominal wall hernia. Small amount of fluid seen in the hernia sac. No evidence for obstruction proximally. Similar mild inflammatory changes of herniated small bowel. Multiple fluid-filled loops of small bowel seen as well as fluid and fecal material seen in the colon. Peritoneum: No abnormal intraperitoneal fluid. No free air. Ventral Wall: No significant ventral hernia. Abdominal Nodes: No retroperitoneal or mesenteric adenopathy by size criteria. Vessels: Scattered atherosclerotic calcifications of the abdominal aorta and iliac vessels without aneurysmal dilatation. The inferior vena cava appears patent. PELVIS: Pelvic Organs: Unremarkable. Bladder: No bladder wall thickening, accounting for underdistention. Pelvic Nodes: No enlarged lymph nodes. Miscellaneous: No inguinal hernias are seen. Bones: Visualized osseous structures appear intact without acute fracture or focal destructive lesion. No acute compression fractures of the imaged spine. IMPRESSION: 1. Colonic diverticulosis with acute diverticulitis involving segment of distal descending colon/proximal sigmoid colon. Inflammatory changes appear to involve adjacent loops of small bowel. Multiple loops of fluid-filled small bowel are also present. Overall, mild generalized inflammatory changes in the region suggesting enteritis/colitis either infectious or inflammatory in etiology. No evidence for perforation or abscess formation. Additionally, inflammatory changes appear to extend into segment of herniated bowel through right lateral abdominal wall hernia where there is a small amount of reactive fluid within the hernia sac. No evidence for bowel obstruction proximal to the hernia. 2. Apparent interval postsurgical changes of partial bowel resection of a loop of bowel seen adjacent to right lateral abdominal wall hernia. 3. Postsurgical changes of left hepatic lobe resection of previously described mass with stable postsurgical changes of prior right hepatic lobe resection. Other chronic findings as above Dictated by: Lucas Beyer M.D. on 04/05/2024 at 0:00 Approved by: Lucas Beyer M.D. on 04/05/2024 at 0:13
[2024-04-05] VITALS: PULSE 85; O2SAT 97
[2024-04-05 00:30] VITALS: PULSE 83; O2SAT 98
[2024-04-05 01:00] VITALS: PULSE 89; RESP 18; O2SAT 98
[2024-04-05] MEDS: ONDANSETRON 4 MG ODT PREPACK 1 BOTTLE MISC (02:01)
[2024-04-05 02:25] VITALS: BP 133/82; PULSE 98; RESP 20; O2SAT 99
== END 2024-04-05 02:55 | disposition home or self-care (01) ==
PROVIDERS: Emergency Provider Emergency Medicine; PCP Family Medicine
DX: K52.9 Noninfective gastroenteritis and colitis, unspecified (principal); R10.9 Unspecified abdominal pain; Z79.01 Long term (current) use of anticoagulants; Z79.899 Other long term (current) drug therapy
CPT/HCPCS: 36415; 74177; 80053; 81003; 83690; 85025; 93005; 99283; 99284; Q9967